=== PATIENT | female | born 1965 ===

== ENCOUNTER 2021-06-11 08:21 | Outpatient (REF) | payer OTHER, SELFPAY ==
--- NOTE | ~2021-06-11 | MM_ITS ---
EXAMINATION: MM SCREENING DIGITAL BREAST TOMOSYNTHESIS, BILATERAL CLINICAL INFORMATION: Screening. Asymptomatic. The lifetime risk of breast cancer based on the Tyrer-Cuzick Model is 14%. COMPARISON: Mammography: 06/19/2016, 04/27/2013, outside mammography 12/20/2010 ([facility], [place]). TECHNIQUE: Digital breast tomosynthesis is performed in both the craniocaudal and mediolateral oblique views along with computer-aided detection (CAD). Synthesized 2D images are generated from the tomosynthesis. FINDINGS: There are scattered areas of fibroglandular density (ACR BI-RADS breast composition Category b). Parenchymal pattern is similar to prior studies. There is no developing density or interval mass or architectural abnormality. No abnormal calcifications. Right breast has stable to decreased nodularity posterior upper outer quadrant. The skin contours are smooth. Axillary nodes are similar to prior studies. Two nodes high right axillary tail are partly within [id number] on outside exam 2010. No significant changes. MM/MM tomosynthesis screening BI IMPRESSION: No significant changes from prior studies. ASSESSMENT: BI-RADS 2: Benign RECOMMENDATION: Routine annual mammography screening. This patient's information was entered into a reminder system with a target due date for their next mammogram.
== END 2021-06-11 08:22 | disposition home or self-care (01) ==
LOC: HO.MAMMO 08:21
PROVIDERS: PCP Nurse Practitioner Family; Visit Provider Nurse Practitioner Family
DX: Z12.31 Encounter for screening mammogram for malignant neoplasm of breast (principal)
CPT/HCPCS: 77063; 77067

== ENCOUNTER 2021-07-08 08:59 | Outpatient (REF) | payer OTHER, SELFPAY ==
[2021-07-08 09:26] LABS: MANUAL DIFF FLAG NO
[2021-07-08 09:41] LABS: Basophils Absolute Auto 0.1 X10*3/uL (0.0-0.2); Basophils Percent Auto 0.8 % (0-2); Eosinophils Absolute Auto 0.3 X10*3/uL (0.0-0.4); Hematocrit 44.3 % (37.0-47.0); Hemoglobin 14.3 g/dl (12.0-16.0); Imm Gran Abs Auto 0.01 X10*3/uL (0.00-0.03); Imm Gran Pct Auto 0.1 % (0.0-0.4); Lymphocytes Absolute Auto 3.5 X10*3/uL (1.2-4.9); Lymphocytes Percent Auto 41.6 % (20-40); Mean Corpuscular HGB Conc 32.3 g/dl (31.0-35.0); Mean Corpuscular Hemoglobin 27.4 pg (27.0-33.0); Mean Corpuscular Volume 84.9 fL (80.0-98.0); Mean Platelet Volume 10.4 fL (9.4-12.3); Monocytes Percent Auto 11.4 % (2-11); Neutrophils Absolute Auto 3.6 x10*3/uL (2.0-8.3); Neutrophils Percent Auto 43.1 % (45-73); Platelet Count 382 X10*3/uL (160-400); Red Blood Count 5.22 X10*6/uL (4.20-5.50); Red Cell Distribution Width 14.4 % (11.0-16.0); White Blood Count 8.4 X10*3/uL (4.8-10.8)
[2021-07-08 10:14] LABS: Alanine Aminotransferase 25 U/L (0-31); Alkaline Phosphatase 84 U/L (39-117); Anion Gap 11 (12-20); Aspartate Amino Transferase 21 U/L (5-31); Bilirubin Total < 0.2 mg/dL (0.0-1.0); Blood Urea Nitrogen 9 mg/dL (9-16); Calcium 9.5 mg/dL (8.4-10.2); Carbon Dioxide 25 mmol/L (22-29); Chloride 111 mmol/L (96-108); Cholesterol 200 mg/dL; Estimated Glomerular Filt Rate > 60; Glucose Fasting 100 mg/dL (60-99); HDL Cholesterol 36 mg/dL; LDL Cholesterol Calculated 133 mg/dl; Potassium 4.8 mmol/L (3.3-5.1); Sodium 142 mmol/L (135-145); Total Protein 7.1 g/dL (6.5-8.0); Triglycerides 158 mg/dL
[2021-07-08 10:32] LABS: Erythrocyte Sedimentation Rate 8 MM/HR (0-20)
[2021-07-08 10:33] LABS: TSH reflex Free T4 4.77 uIU/mL (0.32-4.0)
[2021-07-08 11:05] LABS: Free T4 (Free Thyroxine) 0.63 ng/dL (0.71-1.85)
[2021-07-11 15:16] LABS: Anti Nuclear Antibody Pattern Nuclear, Speckled; Anti Nuclear Antibody Screen POSITIVE (NEGATIVE)
== END 2021-07-08 09:00 | disposition home or self-care (01) ==
LOC: HO.LAB 08:59
PROVIDERS: PCP Nurse Practitioner Family; Visit Provider Nurse Practitioner Family
DX: I10 Essential (primary) hypertension (principal); E03.9 Hypothyroidism, unspecified; E78.00 Pure hypercholesterolemia, unspecified; G43.109 Migraine with aura, not intractable, without status migrainosus; M35.08 Sjogren syndrome with gastrointestinal involvement; M32.9 Systemic lupus erythematosus, unspecified; F41.8 Other specified anxiety disorders
CPT/HCPCS: 36415; 80053; 80061; 82550; 84439; 84443; 85025; 85652; 86038; 86039

== ENCOUNTER → 2021-07-18 09:22 | Outpatient (BNVA) | payer OTHER, SELFPAY | PROVIDERS: PCP Nurse Practitioner Family; Visit Provider Internal Medicine Rheumatology | DX: M32.9 Systemic lupus erythematosus, unspecified (principal); R76.8 Other specified abnormal immunological findings in serum; M79.7 Fibromyalgia; K21.9 Gastro-esophageal reflux disease without esophagitis; M35.09 Sjogren syndrome with other organ involvement; Z79.899 Other long term (current) drug therapy | CPT/HCPCS: 99212 ==

== ENCOUNTER 2021-12-30 09:34 | Outpatient (REF) | payer OTHER, SELFPAY ==
[2021-12-30 10:51] LABS: C Reactive Protein 0.41 mg/dL (< or = 0.50)
[2021-12-30 10:53] LABS: Alanine Aminotransferase 22 U/L (0-31); Albumin Level 3.9 g/dL (3.5-5.0); Alkaline Phosphatase 86 U/L (39-117); Anion Gap 16 (12-20); Aspartate Amino Transferase 17 U/L (5-31); Bilirubin Total 0.2 mg/dL (0.0-1.0); Blood Urea Nitrogen 10 mg/dL (9-16); Carbon Dioxide 21 mmol/L (22-29); Chloride 109 mmol/L (96-108); Cholesterol 177 mg/dL; Estimated Glomerular Filt Rate > 60; Glucose Fasting 113 mg/dL (60-99); HDL Cholesterol 38 mg/dL; LDL Cholesterol Calculated 116 mg/dl; Potassium 4.3 mmol/L (3.3-5.1); Sodium 142 mmol/L (135-145); Triglycerides 119 mg/dL
[2021-12-30 11:15] LABS: Creatinine Urine 327.11 mg/dL; Microalbum/Creatinine Ratio Ur 5.1 ug/mg cr
[2021-12-30 11:17] LABS: TSH reflex Free T4 2.76 uIU/mL (0.32-4.0)
[2022-01-01 16:47] LABS: Complement C3 138 mg/dL (83-193)
[2022-01-01 22:02] LABS: Anti DNA DS Antibody 6 IU/mL; SM/Ribonucleoprotein Ab <1.0 NEG AI (<1.0 NEG); Smith Protein <1.0 NEG AI (<1.0 NEG)
== END 2021-12-30 09:35 | disposition home or self-care (01) ==
LOC: HO.LAB 09:34
PROVIDERS: Nurse Practitioner Family; Absent Provider Internal Medicine Rheumatology; PCP Internal Medicine; Visit Provider Nurse Practitioner Family
DX: E03.9 Hypothyroidism, unspecified (principal); M32.9 Systemic lupus erythematosus, unspecified
CPT/HCPCS: 36415; 80053; 80061; 82043; 84443; 86140; 86160; 86225; 86235

== ENCOUNTER → 2022-01-01 09:26 | Outpatient (BNVA) | payer OTHER, SELFPAY | PROVIDERS: PCP Internal Medicine; Visit Provider Internal Medicine Rheumatology | DX: M32.9 Systemic lupus erythematosus, unspecified (principal); E03.9 Hypothyroidism, unspecified; M35.05 Sjogren syndrome with inflammatory arthritis; M79.7 Fibromyalgia; Z79.899 Other long term (current) drug therapy | CPT/HCPCS: 99212 ==

== ENCOUNTER 2022-02-28 10:45 | Outpatient (REF) | payer OTHER, SELFPAY ==
[2022-02-28 12:22] LABS: Influenza A PCR NEGATIVE (Negative); Influenza B PCR NEGATIVE (Negative); Resp Syncy Virus RNA Qual PCR NEGATIVE (Negative); SARS COV2 PCR INHOUSE POSITIVE (Negative)
== END 2022-02-28 10:46 | disposition home or self-care (01) ==
LOC: HO.LAB 10:45
PROVIDERS: PCP Internal Medicine; Visit Provider Internal Medicine
DX: Z20.822 Contact with and (suspected) exposure to COVID-19 (principal); J98.8 Other specified respiratory disorders
CPT/HCPCS: 0241U

== ENCOUNTER 2022-05-29 06:50 | Outpatient (REF) | payer OTHER, SELFPAY ==
[2022-05-29 06:59] LABS: MANUAL DIFF FLAG NO
[2022-05-29 08:54] LABS: Basophils Percent Auto 0.5 % (0-2); Eosinophils Absolute Auto 0.4 X10*3/uL (0.0-0.4); Eosinophils Percent Auto 4.7 % (0-4); Hematocrit 44.2 % (37.0-47.0); Hemoglobin 14.3 g/dl (12.0-16.0); Imm Gran Abs Auto 0.01 X10*3/uL (0.00-0.03); Imm Gran Pct Auto 0.1 % (0.0-0.4); Lymphocytes Absolute Auto 4.2 X10*3/uL (1.2-4.9); Lymphocytes Percent Auto 56.9 % (20-40); Mean Corpuscular HGB Conc 32.4 g/dl (31.0-35.0); Mean Corpuscular Hemoglobin 27.8 pg (27.0-33.0); Mean Corpuscular Volume 85.8 fL (80.0-98.0); Mean Platelet Volume 10.9 fL (9.4-12.3); Monocytes Absolute Auto 0.9 X10*3/uL (0.1-1.2); Monocytes Percent Auto 12.5 % (2-11); Neutrophils Absolute Auto 1.9 x10*3/uL (2.0-8.3); Neutrophils Percent Auto 25.3 % (45-73); Platelet Count 303 X10*3/uL (160-400); Red Blood Count 5.15 X10*6/uL (4.20-5.50); Red Cell Distribution Width 14.5 % (11.0-16.0); White Blood Count 7.4 X10*3/uL (4.8-10.8)
[2022-05-29 08:54] LABS: Appearance Urine Clear; Color Urine Yellow; Glucose Urine UA Negative (Negative); Leukocyte Esterase Urine Negative (Negative); Nitrite Urine Negative (Negative); PH 5.5 (5.0-9.0); Specific Gravity - Urine 1.025 (1.005-1.025); Urine Blood Negative (Negative); Urine Ketones Negative (Negative); Urine Protein Negative (Neg-Trace)
[2022-05-29 09:39] LABS: Alanine Aminotransferase 27 U/L (0-31); Albumin Level 3.7 g/dL (3.5-5.0); Alkaline Phosphatase 83 U/L (39-117); Anion Gap 12 (12-20); Aspartate Amino Transferase 22 U/L (5-31); Bilirubin Total 0.3 mg/dL (0.0-1.0); Blood Urea Nitrogen 10 mg/dL (9-16); Calcium 8.7 mg/dL (8.4-10.2); Carbon Dioxide 24 mmol/L (22-29); Chloride 111 mmol/L (96-108); Cholesterol 156 mg/dL; Estimated Glomerular Filt Rate > 60; Glucose Fasting 91 mg/dL (60-99); HDL Cholesterol 30 mg/dL; LDL Cholesterol Calculated 98 mg/dl; Potassium 4.1 mmol/L (3.3-5.1); Sodium 143 mmol/L (135-145); Total Protein 6.9 g/dL (6.5-8.0); Triglycerides 142 mg/dL
[2022-05-29 09:43] LABS: Free T4 (Free Thyroxine) 0.92 ng/dL (0.71-1.85); Thyroid Stimulating Hormone 1.08 uIU/mL (0.32-4.0); Vitamin D 25-OH Total 18.4 ng/mL (>30)
== END 2022-05-29 06:51 | disposition home or self-care (01) ==
LOC: HO.LAB 06:50
PROVIDERS: Absent Provider Internal Medicine; PCP Internal Medicine; Visit Provider Internal Medicine Rheumatology
DX: R30.0 Dysuria (principal); E55.9 Vitamin D deficiency, unspecified; E03.9 Hypothyroidism, unspecified; E78.00 Pure hypercholesterolemia, unspecified; I10 Essential (primary) hypertension
CPT/HCPCS: 36415; 80053; 80061; 81003; 82306; 84439; 84443; 85025

== ENCOUNTER → 2022-06-04 08:50 | Outpatient (BNVA) | payer OTHER, SELFPAY | PROVIDERS: PCP Internal Medicine; Visit Provider Internal Medicine Rheumatology | DX: M32.9 Systemic lupus erythematosus, unspecified (principal); M35.05 Sjogren syndrome with inflammatory arthritis; Z79.899 Other long term (current) drug therapy | CPT/HCPCS: 99212 ==

== ENCOUNTER 2022-07-22 08:37 | Outpatient (REF) | payer OTHER, SELFPAY ==
--- NOTE | ~2022-07-22 | MM_ITS ---
EXAMINATION: MM SCREENING DIGITAL BREAST TOMOSYNTHESIS, BILATERAL CLINICAL INFORMATION: Screening. Asymptomatic. The lifetime risk of breast cancer based on the Tyrer-Cuzick Model is 11.6%. COMPARISON: Mammography: 06/11/2021 and studies dating back to 12/20/2010. TECHNIQUE: Digital breast tomosynthesis is performed in both the craniocaudal and mediolateral oblique views along with computer-aided detection (CAD). Synthesized 2D images are generated from the tomosynthesis. FINDINGS: There are scattered areas of fibroglandular density (ACR BI-RADS breast composition Category b). There are no new significant masses, abnormal calcifications, or other abnormalities. Right breast densities in the upper outer aspect are again noted. Intramammary lymph node about the superior aspect of the left breast is seen. MM/MM tomosynthesis screening BI IMPRESSION: No significant changes from prior exam. ASSESSMENT: BI-RADS 2: Benign. RECOMMENDATION: Routine annual mammography screening. This patient's information was entered into a reminder system with a target due date for their next mammogram.
== END 2022-07-22 08:38 | disposition home or self-care (01) ==
LOC: HO.MAMMO 08:37
PROVIDERS: PCP Internal Medicine; Visit Provider Internal Medicine
DX: Z12.31 Encounter for screening mammogram for malignant neoplasm of breast (principal)
CPT/HCPCS: 77063; 77067

== ENCOUNTER 2022-12-05 08:07 | Outpatient (REF) | payer OTHER, SELFPAY ==
[2022-12-05 08:42] LABS: MANUAL DIFF FLAG NO
[2022-12-05 09:39] LABS: Basophils Absolute Auto 0.1 X10*3/uL (0.0-0.2); Basophils Percent Auto 0.9 % (0-2); Eosinophils Absolute Auto 0.2 X10*3/uL (0.0-0.4); Eosinophils Percent Auto 2.9 % (0-4); Hematocrit 45.3 % (37.0-47.0); Hemoglobin 14.8 g/dl (12.0-16.0); Imm Gran Abs Auto 0.01 X10*3/uL (0.00-0.03); Imm Gran Pct Auto 0.1 % (0.0-0.4); Lymphocytes Absolute Auto 3.3 X10*3/uL (1.2-4.9); Lymphocytes Percent Auto 42.3 % (20-40); Mean Corpuscular HGB Conc 32.7 g/dl (31.0-35.0); Mean Corpuscular Hemoglobin 27.4 pg (27.0-33.0); Mean Corpuscular Volume 83.7 fL (80.0-98.0); Mean Platelet Volume 11.2 fL (9.4-12.3); Monocytes Absolute Auto 0.8 X10*3/uL (0.1-1.2); Monocytes Percent Auto 10.1 % (2-11); Neutrophils Absolute Auto 3.4 x10*3/uL (2.0-8.3); Neutrophils Percent Auto 43.7 % (45-73); Platelet Count 288 X10*3/uL (160-400); Red Blood Count 5.41 X10*6/uL (4.20-5.50); Red Cell Distribution Width 13.8 % (11.0-16.0); White Blood Count 7.7 X10*3/uL (4.8-10.8)
[2022-12-05 10:23] LABS: Alanine Aminotransferase 22 U/L (0-31); Alkaline Phosphatase 78 U/L (39-117); Anion Gap 11 (12-20); Aspartate Amino Transferase 19 U/L (5-31); Bilirubin Total 0.3 mg/dL (0.0-1.0); Blood Urea Nitrogen 12 mg/dL (9-16); Calcium 9.3 mg/dL (8.4-10.2); Carbon Dioxide 22 mmol/L (22-29); Chloride 110 mmol/L (96-108); Cholesterol 181 mg/dL (<200); Estimated Glomerular Filt Rate > 60; Glucose Fasting 109 mg/dL (60-99); HDL Cholesterol 36 mg/dL (>40); LDL Cholesterol Calculated 119 mg/dL (<100); Potassium 3.8 mmol/L (3.3-5.1); Sodium 139 mmol/L (135-145); Total Protein 7.3 g/dL (6.5-8.0); Triglycerides 130 mg/dL (<150)
[2022-12-05 10:43] LABS: Free T4 (Free Thyroxine) 0.62 ng/dL (0.71-1.85)
== END 2022-12-05 08:08 | disposition home or self-care (01) ==
LOC: HO.LAB 08:07
PROVIDERS: PCP Internal Medicine; Visit Provider Internal Medicine
DX: E03.9 Hypothyroidism, unspecified (principal); E78.00 Pure hypercholesterolemia, unspecified; K21.9 Gastro-esophageal reflux disease without esophagitis; M79.7 Fibromyalgia
CPT/HCPCS: 36415; 80053; 80061; 84439; 84443; 85025

== ENCOUNTER 2022-12-09 09:07 | Outpatient (AMB) | payer OTHER, SELFPAY ==
--- NOTE | 2022-12-09 09:20 | MHC.OFFVIS ---
Intake Vital Signs 12/09/22 09:27 Height 5 ft 4.5 in Weight 219 lb 12.814 oz BMI 37.1 BP 118/72 Blood Pressure Location Lt brachial Position Sitting Pulse 76 Pulse Source Pulse Oximeter Temp 97.2 F Temp Source Skin Pulse Oximetry (%) 97 Oxygen Delivery Method Room Air Intake Visit Reasons: sle/fm Intake Note: Patient here to follow up on SLE and FM. 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 She remains on hydroxychloroquine 200 mg twice a day. In general she still has scattered widespread pains but no signs of inflammation. Most problematic in the last month has been some left lateral hip pain. She does not recall similar episodes. The pains come on almost exclusively when she lies on the hip at night. There is some discomfort when she rises from a chair. There has been no recent accompanying back pain or radiation of this hip pain anteriorly or down the leg. We discussed before that she did not have much evidence for active lupus in the past year or 2. She did have some lab work done but not all it was completed. [facility] Medical History Vitamin D deficiency Obesity (BMI 30-39.9) Allergic rhinitis GERD (gastroesophageal reflux disease) Acquired hypothyroidism Sjogren syndrome with other organ involvement Long-term use of high-risk medication Positive JESUS (antinuclear antibody) Surgical History History of breast biopsy History of partial hysterectomy Family History Mother Cervical cancer HTN (hypertension) Diabetes Social History Housing: Apartment Alcohol intake: never Patient Tobacco Use Status: Never used Tobacco e-Cigarette/Vaping Use: Never Used Second Hand Smoke Exposure: No service: No Current occupational status: unemployed 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 Card Details: Negative chest pain, edema and syncope Resp Details: Negative for SOB, cough and wheezing GI Details: Negative indigestion/heartburn, nausea, abdominal pain, bowel changes, diarrhea, constipation and bloody stool. Skin/Breast Details: She occasionally notes some redness in the face. Negative for itching, rash, hives, Raynaud's symptoms, alopecia, sun sensitivity, and skin cancer Neuro Details: Negative for epilepsy, palsy, stroke, changes in speech, tingling and weakness Psych Details: Negative for anxiety, depression and stress Endo Details: Negative for polyuria and polydypsia Cristóbal/Lymph Details: Negative for excessive bruising or bleeding. Physical Exam Vital Signs: Last Vital Signs Temp 97.2 F 12/09/22 09:27 Pulse 76 12/09/22 09:27 BP 118/72 12/09/22 09:27 Pulse Ox 97 12/09/22 09:27 Oxygen Delivery Method Room Air 12/09/22 09:27 BMI result Body Mass Index 37.1 APPEARANCE: Patient in no acute distress EYES no redness, pupils equal and reactive to light, eyelids normal NOSE/SINUS: Airflow through both nares, no nasal discharge, no bleeding THROAT: Oral mucosa moist, no ulcerations NECK: No thyromegaly or masses, no adenopathy, trachea midline. HEART: Regulrar rhythm, S1-S2 heard, no murmurs, rubs or gallops. LUNG: Clear to percussion and auscultation ABD: Normal bowel sounds, no organomegaly, masses or tenderness. EXTREMITIES: No edema, no calf tenderness, normal peripheral pulses. JOINT EXAM: Cervical Spine:.? Mild pain with the extremes of normal range of motion.? Some cervical muscle and trapezial muscle tenderness. Thoracic Spine:.? No scoliosis.? No tenderness on palpation. Lumbar Spine:.? Alignment normal.? Lumbar pain with flexion at 60 degrees or with hyperextension.? Some paraspinal muscle tenderness. Chest Wall:? No tenderness, swelling, increased warmth or erythema. Hands:.? Normal pain-free range of motion without tenderness, swelling, increased warmth or erythema. Able to make a full fist and has a good customer support coordinator strength. Wrists:.? Slight pain with extremes of normal flexion or extension with some minimal dorsal tenderness but no swelling, increased warmth or erythema. Elbows:. Normal pain-free range of motion with mild tenderness across the forearm muscles and over the lateral epicondyles. Over the joint spaces there is no tenderness, swelling, increased warmth or erythema. Shoulders:?? Full range of motion with mild discomfort at the extremes of motion.? This seems to be mostly felt over the trapezius area.? That area is mildly tender.? There is no adenopathy, weakness, swelling, increased warmth or erythema. Hips:.? Left: There is mild moderate pain with extremes of internal or external rotation. This is felt laterally. No groin pain with motion. Right: Full range of motion without pain. Hip bursa:.? Moderate left and mild right trochanteric tenderness. Knees:.?? Mild pain with extremes of flexion extension with some mild patellofemoral crepitus.? There is mild medial compartment tenderness bilaterally but no effusions, soft tissue swelling, increased warmth or erythema.? Ankles:.? Normal pain-free range of motion without tenderness, swelling, increased warmth or erythema. Feet:.? Normal pain-free range of motion with mild tenderness across the insteps.? However these are not swollen.? The toes show no tenderness, swelling, increased warmth or erythema. Tender points:? Mild tenderness to digital palpation at the occiput, trapezius, second rib, lateral epicondyle, knees, greater trochanter and gluteal area bilaterally. ? 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 This lateral hip pain looks like some trochanteric bursitis. We will do a hip x-ray to rule out other pathology. She might benefit from a corticosteroid injection and/or physical therapy. I will recheck again laboratory markers for information and lupus activity before her next visit in 3 months. At that point we may consider starting to taper her hydroxychloroquine as she has been years without any lupus activity. Orders: Orders Complement C4 Today R76.8 - Other specified abnormal immunological findings in serum Complete Blood Count Auto Diff Today R76.8 - Other specified abnormal immunological findings in serum C Reactive Protein Today R76.8 - Other specified abnormal immunological findings in serum Erythrocyte Sedimentation Rate Today R76.8 - Other specified abnormal immunological findings in serum Protein Creatinine Ratio, Ur Today R76.8 - Other specified abnormal immunological findings in serum Creatinine Today R76.8 - Other specified abnormal immunological findings in serum XR hip LT min 2V Today M25.552 - Pain in left hip Anti DNA DS Antibody Today R76.8 - Other specified abnormal immunological findings in serum Complement C3 Today R76.8 - Other specified abnormal immunological findings in serum Coding Level of Care Code Est Pt Level 3 (19628) Diagnoses Hip pain, left M25.552 Long-term use of high-risk medication Z79.899 Fibromyalgia M79.7 Hypothyroid E03.9 Positive JESUS (antinuclear antibody) R76.8
[2022-12-09 09:27] VITALS: BP 118/72; PULSE 76; TEMP 36.2; O2SAT 97; BMI 37.1
== END 2022-12-09 09:54 | disposition home or self-care (01) ==
PROVIDERS: PCP Internal Medicine; Visit Provider Internal Medicine Rheumatology
DX: M25.552 Pain in left hip (principal); Z79.899 Other long term (current) drug therapy; M79.7 Fibromyalgia; E03.9 Hypothyroidism, unspecified; R76.8 Other specified abnormal immunological findings in serum
CPT/HCPCS: 99213

== ENCOUNTER → 2022-12-09 09:07 | Outpatient (BNVA) | payer OTHER, SELFPAY | PROVIDERS: PCP Internal Medicine; Visit Provider Internal Medicine Rheumatology | DX: M79.7 Fibromyalgia (principal); M25.552 Pain in left hip; E03.9 Hypothyroidism, unspecified; R76.8 Other specified abnormal immunological findings in serum; Z79.899 Other long term (current) drug therapy | CPT/HCPCS: 99212 ==

== ENCOUNTER 2022-12-16 10:46 | Outpatient (AMB) | payer OTHER, SELFPAY ==
--- NOTE | 2022-12-16 11:00 | A.OFFPC_ITS ---
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 Accompanied by: Self / Same As Patient Allergies codeine Allergy (Unknown, Verified 12/16/22 11:39) Swelling, rash Medication List - Last Reconciled 12/16/22 by Yasir Otero MD cetirizine 10 mg PO DAILY cholecalciferol (vitamin D3) 50 mcg PO DAILY 90 days diclofenac sodium 1% (Arthritis Pain (diclofenac)) 2 grams topical QID PRN famotidine 20 mg PO DAILY fluticasone propionate 50 mcg/actuation (Flonase Allergy Relief) 1 spray intranasal DAILY gabapentin one in AM and two at night hydroxychloroquine 400 mg (2 x 200 mg) PO DAILY levothyroxine 75 mcg PO DAILY lifitegrast 5% (Xiidra) 1 drp ophthalmic (eye) Q12H omeprazole 20 mg PO DAILY polyethylene glycol 3350 (Miralax) 17 grams PO DAILY 30 days sumatriptan succinate 50 mg PO .q8 PRN tizanidine 4 mg PO BEDTIME 30 days Tobacco use date assessed: 12/16/22 Dental Screening Dental Screen Date: 12/16/22 Did you have a dental visit in the last 12 months?: Yes Did you have a dental problem in the last 6 months where you did not have access to dental care?: No Was dental information given to patient?: Patient has dentist HPI 4 MONTH F/U HPI Details Patient comes in today for her follow up visit States that she feels okay Admits that she has been out of her thyroid medication for a while but has started back on it recently She denies any headaches or dizziness Denies any chest pains, no SOB No nausea/vomiting, no abdominal pain No change in bowel habits noted Had her follow up labs done a couple of weeks ago - to discuss her results States that she also has a raised skin lesion on her left hand that has been present for over 2 months now and she would like to have evaluated and removed if possible [facility] Medical History Vitamin D deficiency Obesity (BMI 30-39.9) Allergic rhinitis GERD (gastroesophageal reflux disease) Acquired hypothyroidism Sjogren syndrome with other organ involvement Long-term use of high-risk medication Positive JESUS (antinuclear antibody) Surgical History History of breast biopsy History of partial hysterectomy Family History Mother Cervical cancer HTN (hypertension) Diabetes Social History Housing: Apartment Alcohol intake: never Patient Tobacco Use Status: Never used Tobacco e-Cigarette/Vaping Use: Never Used Second Hand Smoke Exposure: No service: No Current occupational status: unemployed 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 1. Little interest or pleasure in doing things: more than half the days 2. Feeling down, depressed, or hopeless: more than half the days 3. Trouble falling or staying asleep, or sleeping too much: more than half the days 4. Feeling tired or having little energy: more than half the days 5. Poor appetite or overeating: more than half the days 6. Feeling bad about yourself - or that you are a failure or have let yourself or your family down: more than half the days 7. Trouble concentrating on things, such as reading the newspaper or watching television: more than half the days 8. Moving or speaking so slowly that other people could have noticed. Or the opposite - being so fidgety or restless that you have been moving around a lot more than usual: not at all 9. Thoughts that you would be better off or of hurting yourself in some way: not at all Total score: 14 Depression Screening Interpretation: Positive Depression Screening Follow-up: Existing condition and Follow-up Visit Requested 35066 - PHQ-9 Billing: Yes Source: Developed by Drs. Hima Ferris, Kaci De La Cruz, Manas Thomas and colleagues, with an educational bridget from [employer]. Thrive Questionnaire Date Thrive assessed: 12/16/22 I am a: Patient What is your living situation today?: I have a steady place to live Within the past 12 months, did the food you bought not last and you didn't have the money to get more?: Never true Within the past 12 months, did you worry whether your food would run out before you got money to buy more?: Never true Do you have trouble paying for medicines?: No Do you have trouble getting transportation to medical appointments?: No Do you have trouble paying your heating and electricity bill?: No Do you have trouble taking care of your child, family member or friend?: No Do you have trouble with day-to-day activities such as bathing, preparing meals, shopping, managing finances, etc.?: No Are you currently unemployed and looking for a job?: No Are you interested in more education?: No Please select the resources that you would like help with: None Currently or been in a relationship where the following occur: no concerns reported AUDIT C Alcohol Use Questionnaire (AUDIT-C) 1. How often do you have a drink containing alcohol?: Never 3. How often do you have six or more drinks on one occasion?: Never Total Score: 0 Score Reviewed/Action Taken: Yes GRAY-7 AMB Questionnaire GRAY-7 Date GRAY - 7 assessed: 12/16/22 Feeling nervous, anxious, or on edge: 2 = More than half the days Not being able to stop or control worryin = More than half the days Worrying too much about different things: 2 = More than half the days Trouble relaxin = More than half the days Being so restless that it is hard to sit still: 0 = Not at all Becoming easily annoyed or irritable: 2 = More than half the days Feeling afraid as if something awful might happen: 0 = Not at all Total GRAY-7 score (0-4 normal; 5-9 mild; 10-14 moderate; 15-21 severe): 10 Source: Developed by Drs. Hima Ferris, Kaci De La Cruz, Manas Thomas and colleagues, with an educational bridget from [employer]. GRAY-7 Assessment Billing GRAY-7 Assessment Tool: GRAY-7 Assessment 85690 Review of Systems Const Denies chills, Denies fatigue, Denies fever(s) and Denies headache(s) ENT Denies dysphagia, Denies dizziness, Denies otalgia, Denies headache(s), Denies neck pain, Denies odynophagia and Denies sore throat Card Denies chest pain, Denies palpitations and Denies dyspnea Resp Denies cough and Denies dyspnea GI Denies abdominal pain, Denies constipation, Denies dysphagia, Denies heartburn, Denies diarrhea, Denies nausea, Denies odynophagia and Denies vomiting Denies difficulty voiding, Denies nocturia and Denies dysuria Musc Denies neck pain Skin/Breast Details: (+) skin lesion on the left hand - has been present for > 2 months Denies rash Neuro Denies dizziness and Denies headache(s) Endo Denies fatigue and Denies palpitations Physical exam (Primary Care) Vital Signs: Last Vital Signs Pulse 65 12/16/22 11:01 BP 126/80 12/16/22 11:01 Pulse Ox 97 12/16/22 11:01 Oxygen Delivery Method Room Air 12/16/22 11:01 BMI result Body Mass Index 37.0 Tobacco/Smoking Status: Tobacco use Status Tobacco use date assessed 12/16/22 12/16/22 11:05 Patient Tobacco Use Status Never used Tobacco 12/16/22 11:05 e-Cigarette/Vaping Use Never Used 12/16/22 11:05 PHQ-9: PHQ-9 Score PHQ-9: Total score 14 12/30/22 03:30 Depression Screening Interpretation: Positive Depression Screening Follow-up: Existing condition and Follow-up Visit Requested Thrive Assessment: Date of Thrive Assessment Date Thrive assessed 12/16/22 12/16/22 11:05 Currently or been in a relationship where the following occur: no concerns reported Const General: no acute distress and alert HENMT Ears: TM's normal bilaterally and EAC's normal Throat: Yes posterior oropharynx normal and Yes tonsils normal (no TP congestion) Neck Neck: Yes no lymphadenopathy and Yes supple Resp Auscultation: clear to auscultation bilaterally, no rales and no wheezes Cardio Rate: regular rate Rhythm: regular rhythm Heart sounds: no murmurs GI Palpation (GI): Soft to palpation, nontender and No hepatosplenomegaly present Skin Other: (+) raised lesion on the left hand at the hypothenar eminence Extrem General: Yes no clubbing, cyanosis or edema Results Reviewed Results Reviewed: Laboratory Tests 12/05/22 08:38 WBC 7.7 Hgb 14.8 Hct 45.3 Plt Count 288 Sodium 139 Potassium 3.8 Creatinine 0.86 Estimated GFR > 60 Fasting Glucose 109 H Calcium 9.3 D AST 19 ALT 22 Triglycerides 130 Cholesterol 181 LDL Cholesterol, Calc 119 H HDL Cholesterol 36 L TSH 11.60 H Free T4 0.62 L Assessment and Plan Assessment & Plan (1) SLE (systemic lupus erythematosus related syndrome): Comment: Onset 2016: Arthritis, facial rash, positive anti DNA; hydroxychloroquine probably started in 2018 Code(s): M32.9 - Systemic lupus erythematosus, unspecified Plan: Continue Hydroxychloroquine 400 mg QD [place] [facility] (2) Sjogren syndrome with inflammatory arthritis: Code(s): M35.05 - Sjogren syndrome with inflammatory arthritis Plan: Continue Gabapentin 300 mg in AM and 600 mg Q HS, Nabumetone 500 mg BID and Diclofenac sodium 1% gel apply 2 gms QID PRN Continue Xiidra 5% apply to eye Q 12 hours Has been advised by rheumatology in the past that she appears to have a mix of SLE and Sjogren's syndrome with arthralgias and fibromyalgia but was seen at [facility] [place] more recently and advised that her symptoms are mostly consistent with fibromyalgia and she currently does not have much in terms of symptoms of any other inflammatory arthritis Follow up with rheumatology as scheduled (3) Fibromyalgia: Code(s): M79.7 - Fibromyalgia Plan: Was advised recently that her symptoms lately are more consistent with fibromyalgia Continue Gabapentin 300 mg Q AM and 600 mg Q HS and Tizanidine 4 mg Q HS PRN (4) Migraine with aura: Comment: in her 30's Code(s): G43.109 - Migraine with aura, not intractable, without status migrainosus Qualifiers: Intractability: not intractable Status migrainosus presence: without status migrainosus Qualified Code(s): G43.109 - Migraine with aura, not intractable, without status migrainosus Plan: Reinforced avoidance of potential migraine triggers Continue Sumatriptan 50 mg PRN Follow up with neurology as scheduled (5) Acquired hypothyroidism: Code(s): E03.9 - Hypothyroidism, unspecified Plan: Results of her labs done a couple of weeks ago reviewed and discussed with patient - she is advised that her TSH level is significantly elevated, and that this is expected since she has been off her thyroid medication for a while Have advised her to continue on her Levothyroxine 75 mcg QD for now Will recheck her TFTs and labs in 4 months for follow up (6) Vitamin D deficiency: Code(s): E55.9 - Vitamin D deficiency, unspecified Plan: Continue Vitamin D3 2000 units QD (7) GERD (gastroesophageal reflux disease): Code(s): K21.9 - Gastro-esophageal reflux disease without esophagitis Qualifiers: Esophagitis presence: without esophagitis Qualified Code(s): K21.9 - Gastro-esophageal reflux disease without esophagitis Plan: Dietary restrictions reinforced Continue Famotidine 20 mg QD and Omeprazole 20 mg QD Advised again that if her symptoms persist despite Tx with Rx, will need to refer her to GI for further evaluation and consideration for EGD (8) Constipation: Code(s): K59.00 - Constipation, unspecified Qualifiers: Constipation type: unspecified constipation type Qualified Code(s): K59.00 - Constipation, unspecified Plan: Encouraged increased oral fluids and dietary fiber Continue Metamucil daily PRN and Miralax powder 17 gm QD - reminded again that she has to take Miralax daily for it to be effective (9) Allergic rhinitis: Code(s): J30.9 - Allergic rhinitis, unspecified Qualifiers: Allergic rhinitis seasonality: seasonal Allergic rhinitis trigger: unspecified Qualified Code(s): J30.2 - Other seasonal allergic rhinitis Plan: Contine Cetirizine 10 mg QD PRN and Fluticasone 50 mcg nasal spray QD PRN (10) Skin lesion of hand: Code(s): L98.9 - Disorder of the skin and subcutaneous tissue, unspecified Plan: Per request, will refer patient to dermatology for further evaluation and management of the lesion on her left hand (11) Obesity (BMI 30-39.9): Code(s): E66.9 - Obesity, unspecified Plan: Reinforced diet/exercise as tolerated/lose weight Plan Follow up in 4 months Orders: Orders Lipid Panel 4 Months E78.00 - Pure hypercholesterolemia, unspecified Thyroid Stimulating Hormone 4 Months E03.9 - Hypothyroidism, unspecified Complete Blood Count Auto Diff 4 Months I10 - Essential (primary) hypertension Vitamin D 25-OH Total 4 Months E55.9 - Vitamin D deficiency, unspecified UA CC w/rflx Micro + Cult 4 Months R30.0 - Dysuria Comprehensive [place]. Panel Fast 4 Months E78.00 - Pure hypercholesterolemia, unspecified Free T4 (Free Thyroxine) 4 Months E03.9 - Hypothyroidism, unspecified Referrals Dermatology Referral L98.9 - Disorder of the skin and subcutaneous tissue, unspecified Coding Level of Care Code Est Pt Level 4 (55956) Diagnoses SLE (systemic lupus erythematosus related syndrome) M32.9 Sjogren syndrome with inflammatory arthritis M35.05 Fibromyalgia M79.7 Migraine with aura and without status migrainosus, not intractable G43.109 Intractability: not intractable Status migrainosus presence: without status migrainosus Acquired hypothyroidism E03.9 Vitamin D deficiency E55.9 Gastroesophageal reflux disease without esophagitis K21.9 Esophagitis presence: without esophagitis Constipation, unspecified constipation type K59.00 Constipation type: unspecified constipation type Seasonal allergic rhinitis, unspecified trigger J30.2 Allergic rhinitis seasonality: seasonal Allergic rhinitis trigger: unspecified Skin lesion of hand L98.9 Obesity (BMI 30-39.9) E66.9 Additional Codes GRAY-7 Assessment Billing - GRAY-7 Assessment Tool: GRAY-7 Assessment 70071 ([id number])
[2022-12-16 11:01] VITALS: BP 126/80; PULSE 65; O2SAT 97; BMI 37.0
== END 2022-12-16 11:46 | disposition home or self-care (01) ==
PROVIDERS: PCP Internal Medicine; Visit Provider Internal Medicine
DX: M32.9 Systemic lupus erythematosus, unspecified (principal); M35.05 Sjogren syndrome with inflammatory arthritis; M79.7 Fibromyalgia; G43.109 Migraine with aura, not intractable, without status migrainosus; E03.9 Hypothyroidism, unspecified; E55.9 Vitamin D deficiency, unspecified; K21.9 Gastro-esophageal reflux disease without esophagitis; K59.00 Constipation, unspecified; J30.2 Other seasonal allergic rhinitis; L98.9 Disorder of the skin and subcutaneous tissue, unspecified; E66.9 Obesity, unspecified
CPT/HCPCS: 99214

== ENCOUNTER 2023-04-07 08:49 | Outpatient (AMB) | payer OTHER, SELFPAY ==
[2023-04-07 08:51] VITALS: BP 124/68; PULSE 72; O2SAT 98; BMI 36.8
--- NOTE | 2023-04-07 08:51 | MHC.OFFVIS ---
Intake Vital Signs 04/07/23 08:51 Height 5 ft 4.5 in Weight 217 lb 13.067 oz BMI 36.8 BP 124/68 Blood Pressure Location Rt brachial Position Sitting Pulse 72 Pulse Source Pulse Oximeter Pulse Oximetry (%) 98 Oxygen Delivery Method Room Air Intake Visit Reasons: SLE/FM Intake Note: Pt last seen 12/09/22 presents today for follow up and test results. She did not do labs or xrays. States she has been very forgetful lately. 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 Accompanied by: Self / Same As Patient Allergies codeine Allergy (Unknown, Verified 04/07/23 08:58) Swelling, rash Medication List - Last Reconciled 04/07/23 by Zoran Vinson MD cetirizine 10 mg PO DAILY cholecalciferol (vitamin D3) 50 mcg PO DAILY 90 days diclofenac sodium 1% (Arthritis Pain (diclofenac)) 2 grams topical QID PRN famotidine 20 mg PO DAILY fluticasone propionate 50 mcg/actuation (Flonase Allergy Relief) 1 spray intranasal DAILY gabapentin 300 mg PO BEDTIME hydroxychloroquine 400 mg PO DAILY levothyroxine 75 mcg PO DAILY lifitegrast 5% (Xiidra) 1 drp ophthalmic (eye) Q12H omeprazole 20 mg PO DAILY polyethylene glycol 3350 (Miralax) 17 grams PO DAILY 30 days sumatriptan succinate 50 mg PO .q8 PRN tizanidine 4 mg PO BEDTIME 30 days HPI HPI Comments History of Present Illness Details 57-year-old female with Sjogren's/UCTD returns for follow-up. This is her 1st visit with me. She used to see Dr. Domínguez. She states that lately she has been having increased pain everywhere., arms, back, legs. She continues to have pain on the outside of her left hip. Worse when getting up after sitting down. She denies any skin rashes. She takes the gabapentin nightly. She feels that the cold weather has made her symptoms worse. Most recent history by Dr. Domínguez 11/2022: The patient returns for evaluation of fibromyalgia and presumed lupus. She remains on hydroxychloroquine 200 mg twice a day. In general she still has scattered widespread pains but no signs of inflammation. Most problematic in the last month has been some left lateral hip pain. She does not recall similar episodes. The pains come on almost exclusively when she lies on the hip at night. There is some discomfort when she rises from a chair. There has been no recent accompanying back pain or radiation of this hip pain anteriorly or down the leg. We discussed before that she did not have much evidence for active lupus in the past year or 2. She did have some lab work done but not all it was completed. [facility] Medical History Vitamin D deficiency Obesity (BMI 30-39.9) Allergic rhinitis GERD (gastroesophageal reflux disease) Acquired hypothyroidism Sjogren syndrome with other organ involvement Long-term use of high-risk medication Positive JESUS (antinuclear antibody) Surgical History History of breast biopsy History of partial hysterectomy Family History Mother Cervical cancer HTN (hypertension) Diabetes Social History Housing: Apartment Alcohol intake: never Patient Tobacco Use Status: Never used Tobacco e-Cigarette/Vaping Use: Never Used Second Hand Smoke Exposure: No service: No Current occupational status: unemployed 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 Cognitive needs: No Hearing needs: No Vision needs: Yes (glasses) Review of Systems Const Reports snoring Resp Reports snoring Musc Reports back pain and Reports arthralgias Skin/Breast Denies rash Psych Reports abnormal sleep pattern Physical Exam Vital Signs: Last Vital Signs Pulse 72 04/07/23 08:51 BP 124/68 04/07/23 08:51 Pulse Ox 98 04/07/23 08:51 Oxygen Delivery Method Room Air 04/07/23 08:51 BMI result Body Mass Index 36.8 Const General: cooperative, healthy appearing and comfortable Nutritional Appearance: obese morbidly obese Orientation/consciousness: patient oriented x3 Limitations: no limitations HEENT Head: Yes normocephalic and Yes atraumatic Resp Effort & Inspection: normal respiratory effort and able to speak in complete sentences Auscultation: clear to auscultation bilaterally Cardio Rate: regular rate Rhythm: regular rhythm Skin General skin exam: no rashes or lesions noted Neuro General: patient oriented x3 Extrem Other: Multiple fibromyalgia tender points No active synovitis Normal nailfold capillaroscopy Office Procedures Joint Injection/Drain Joint Injection/Drain Details: Left trochanteric bursa Prep: site was prepped using sterile technique and ethochloride spray was applied Injected: 40 mg of, Kenalog and other (2 mL of 1% lidocaine) Approach Used: other Procedure: The patient tolerated the procedure well Coding Details: With the patient's consent, the left lateral hip area was prepped with for Chloraprep and alcohol. Under a topical ethyl chloride spray the tender area over the trochanteric region was injected with 40 mg of Kenalog and 2 cc of 1% lidocaine. The patient tolerated the procedure with no adverse effects - Glenohumeral/Tronchanteric Bursa/Intraarticular Procedure code (CPT) selection complete Assessment & Plan Assessment & Plan (1) SLE (systemic lupus erythematosus related syndrome): Comment: Onset 2015: Arthritis, facial rash, +++SSa +++SSb, +DsDNA hydroxychloroquine probably started in 2018 Code(s): M32.9 - Systemic lupus erythematosus, unspecified Plan: 57-year-old female with mild SLE returns for follow-up. Upon evaluation I do not see any signs of active disease. She is doing well on hydroxychloroquine 400 mg daily. The majority of her complaints are likely due to fibromyalgia and degenerative arthritis. 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 Per patient. She was last seen by Ophthalmology 1 year ago. Advised patient to make an appointment with her heavy forger helper and ask them to send me a copy of their report (3) Fibromyalgia: Code(s): M79.7 - Fibromyalgia Plan: Patient is taking gabapentin 300 mg nightly. She mentions snoring at night. Advised patient to discuss with her PCP the possibility of getting a sleep study to rule out obstructive CPAP (4) Trochanteric bursitis, left hip: Code(s): M70.62 - Trochanteric bursitis, left hip Plan: Patient does not interested in home exercises or formal physical therapy referral. With patient's consent, left hip trochanteric bursa was injected with Kenalog in clinic today Orders: Orders Anti DNA DS Antibody 6 Months M32.9 - Systemic lupus erythematosus, unspecified Complement C3 6 Months M32.9 - Systemic lupus erythematosus, unspecified Complement C4 6 Months M32.9 - Systemic lupus erythematosus, unspecified Protein Creatinine Ratio, Ur 6 Months M32.9 - Systemic lupus erythematosus, unspecified Erythrocyte Sedimentation Rate 6 Months M32.9 - Systemic lupus erythematosus, unspecified UA w Microscopic 6 Months M32.9 - Systemic lupus erythematosus, unspecified Complete Blood Count Auto Diff 6 Months M32.9 - Systemic lupus erythematosus, unspecified Comprehensive Met. Panel 6 Months M32.9 - Systemic lupus erythematosus, unspecified AMB Joint Injection/Aspiration Today M70.62 - Trochanteric bursitis, left hip Medications: Changed From hydroxychloroquine 400 mg (2 x 200 mg) PO DAILY 60 tabs 2RF M32.9 - Systemic lupus erythematosus, unspecified To hydroxychloroquine 400 mg PO DAILY M32.9 - Systemic lupus erythematosus, unspecified From gabapentin one in AM and two at night 90 caps 5RF M32.9 - Systemic lupus erythematosus, unspecified To gabapentin 300 mg PO BEDTIME M32.9 - Systemic lupus erythematosus, unspecified Coding Level of Care Code Est Pt Level 4 (59880) Diagnoses SLE (systemic lupus erythematosus related syndrome) M32.9 Long-term use of high-risk medication Z79.899 Fibromyalgia M79.7 Trochanteric bursitis, left hip M70.62 CPT Codes Coding - Joint 7: 54085 - Glenohumeral/Tronchanteric Bursa/Intraarticular ([id number])
== END 2023-04-07 09:23 | disposition home or self-care (01) ==
PROVIDERS: PCP Internal Medicine; Visit Provider Student in an Organized Health Care Education/Training Program
DX: M32.9 Systemic lupus erythematosus, unspecified (principal); M79.7 Fibromyalgia; Z79.899 Other long term (current) drug therapy; M70.62 Trochanteric bursitis, left hip
CPT/HCPCS: 20610; 99214

== ENCOUNTER → 2023-04-07 08:49 | Outpatient (BNVA) | payer OTHER, SELFPAY | PROVIDERS: PCP Internal Medicine; Visit Provider Student in an Organized Health Care Education/Training Program | DX: M32.9 Systemic lupus erythematosus, unspecified (principal); M79.7 Fibromyalgia; M70.62 Trochanteric bursitis, left hip; Z79.899 Other long term (current) drug therapy | CPT/HCPCS: 20610; 99212 ==

== ENCOUNTER 2023-07-03 14:42 | Outpatient (AMB) | payer OTHER, SELFPAY ==
--- NOTE | 2023-07-03 14:54 | MHC.PC.OV ---
Vital Signs 07/03/23 14:55 Height 5 ft 4.5 in Weight 224 lb BMI 37.9 BP 126/80 Blood Pressure Location Lt brachial Position Sitting Pulse 65 Pulse Source Pulse Oximeter Pulse Oximetry (%) 97 Oxygen Delivery Method Room Air Intake Visit Reasons: Annual physical exam Intake Note: Patient is here today for a physical. Photographer'S Assistant Required: No Accompanied by: Self / Same As Patient Allergies codeine Allergy (Unknown, Verified 07/03/23 15:35) Swelling, rash Medication List - Last Reconciled 07/03/23 by Yasir Otero MD cetirizine 10 mg PO DAILY cholecalciferol (vitamin D3) 50 mcg PO DAILY 90 days diclofenac sodium 1% (Arthritis Pain (diclofenac)) 2 grams topical QID PRN famotidine 20 mg PO DAILY fluticasone propionate 50 mcg/actuation (Flonase Allergy Relief) 1 spray intranasal DAILY gabapentin 300 mg PO BEDTIME hydroxychloroquine 400 mg PO DAILY levothyroxine 75 mcg PO DAILY lifitegrast 5% (Xiidra) 1 drp ophthalmic (eye) Q12H omeprazole 20 mg PO DAILY polyethylene glycol 3350 (Miralax) 17 grams PO DAILY 30 days sumatriptan succinate 50 mg PO .q8 PRN tizanidine 4 mg PO BEDTIME 30 days Tobacco use date assessed: 07/03/23 Dental Screening Dental Screen Date: 07/03/23 Did you have a dental visit in the last 12 months?: Yes Did you have a dental problem in the last 6 months where you did not have access to dental care?: No Was dental information given to patient?: Patient has dentist HPI Encounter for annual physical exam HPI Details Patient comes in today for her annual physical examination States that she feels okay She denies any headaches or dizziness Denies any chest pains, no SOB No nausea/vomiting, no abdominal pain No change in bowel habits noted Denies any acute urinary symptoms Needs her Miralax Rx refilled She has not yet gotten her previously ordered labs done recently and is advised to get them done JAVIER She continues to follow up with [facility] Rheumatology for her mixed connective tissue disease, which is reportedly well-controlled on her current Rx of Hydroxychloroquine She has her next annual mammogram scheduled for later this month on 07/24/2023 Relates (+) Hx of hysterectomy years ago and has not had gynecology exam in years Her colonoscopy was last done in 2019 (tubular adenoma) and she is now due for a repeat colonoscopy (5 year recall) [facility] Medical History (Updated 07/05/23 @ 22:33 by Yasir Otero MD) Vitamin D deficiency Obesity (BMI 30-39.9) Allergic rhinitis GERD (gastroesophageal reflux disease) Acquired hypothyroidism Sjogren syndrome with other organ involvement Long-term use of high-risk medication Positive JESUS (antinuclear antibody) Surgical History (Updated 07/05/23 @ 21:55 by Yasir Otero MD) Hx of cholecystectomy Hx of dilation and curettage Hx of tubal ligation History of left oophorectomy Hx of hysterectomy History of breast biopsy Family History Mother Cervical cancer HTN (hypertension) Diabetes Social History Housing: Apartment Alcohol intake: never Patient Tobacco Use Status: Never used Tobacco e-Cigarette/Vaping Use: Never Used Second Hand Smoke Exposure: No service: No Current occupational status: unemployed 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 1. Little interest or pleasure in doing things: not at all 2. Feeling down, depressed, or hopeless: not at all 3. Trouble falling or staying asleep, or sleeping too much: not at all 4. Feeling tired or having little energy: not at all 5. Poor appetite or overeating: not at all 6. Feeling bad about yourself - or that you are a failure or have let yourself or your family down: not at all 7. Trouble concentrating on things, such as reading the newspaper or watching television: not at all 8. Moving or speaking so slowly that other people could have noticed. Or the opposite - being so fidgety or restless that you have been moving around a lot more than usual: not at all 9. Thoughts that you would be better off or of hurting yourself in some way: not at all Total score: 0 Depression Screening Interpretation: Negative Depression Screening Done: Yes 04299 - PHQ-9 Billing: Yes Source: Developed by Drs. Hima Ferris, Kaci De La Cruz, Manas Thomas and colleagues, with an educational bridget from [employer]. Thrive Questionnaire Date Thrive assessed: 07/03/23 I am a: Patient What is your living situation today?: I have a steady place to live Within the past 12 months, did the food you bought not last and you didn't have the money to get more?: Never true Within the past 12 months, did you worry whether your food would run out before you got money to buy more?: Never true Do you have trouble paying for medicines?: No Do you have trouble getting transportation to medical appointments?: No Do you have trouble paying your heating and electricity bill?: No Do you have trouble taking care of your child, family member or friend?: No Do you have trouble with day-to-day activities such as bathing, preparing meals, shopping, managing finances, etc.?: No Are you currently unemployed and looking for a job?: No Are you interested in more education?: No Please select the resources that you would like help with: None Currently or been in a relationship where the following occur: no concerns reported THRIVE Score: 0 AUDIT C Alcohol Use Questionnaire (AUDIT-C) 1. How often do you have a drink containing alcohol?: Never 3. How often do you have six or more drinks on one occasion?: Never Total Score: 0 Score Reviewed/Action Taken: Yes GRAY-7 AMB Questionnaire GRAY-7 Date GRAY - 7 assessed: 07/03/23 Feeling nervous, anxious, or on edge: 2 = More than half the days Not being able to stop or control worryin = Nearly every day Worrying too much about different things: 3 = Nearly every day Trouble relaxin = More than half the days Being so restless that it is hard to sit still: 2 = More than half the days Becoming easily annoyed or irritable: 3 = Nearly every day Feeling afraid as if something awful might happen: 2 = More than half the days Total GRAY-7 score (0-4 normal; 5-9 mild; 10-14 moderate; 15-21 severe): 17 Source: Developed by Drs. Hima Ferris, Manas Garrett and colleagues, with an educational bridget from [employer]. GRAY-7 Assessment Billing GRAY-7 Assessment Tool: GRAY-7 Assessment 84878 Review of Systems Const Denies chills, Denies fatigue, Denies fever(s), Denies headache(s) and Denies malaise Eyes Denies blurry vision, Denies change in vision, Reports dry eyes, Denies irritation and Denies itchy eyes ENT Denies dysphagia, Denies dizziness, Denies otalgia, Denies headache(s), Denies nasal congestion, Denies neck pain, Denies odynophagia, Denies sinus pain and Denies sore throat Card Denies chest pain, Denies rapid heart rate, Denies irregular heart rhythm, Denies palpitations and Denies dyspnea Resp Denies chest congestion, Denies cough, Denies dyspnea and Denies wheezing GI Denies abdominal pain, Denies bloating, Denies constipation, Denies dysphagia, Denies heartburn, Denies diarrhea, Denies nausea, Denies odynophagia and Denies vomiting Denies hematuria, Denies urinary frequency, Denies dysuria, Denies urinary incontinence and Denies urinary urgency Musc Denies back pain, Reports arthralgias (on and off, involving multiple joints), Denies joint swelling, Denies muscle weakness and Denies neck pain Skin/Breast Denies breast pain, Denies breast mass, Denies change in pigmentation, Denies lesions, Denies rash and Denies unusual bruising Neuro Denies dizziness, Denies headache(s) and Denies paresthesias Psych Denies anxiety and Denies depression Endo Denies fatigue and Denies palpitations Cristóbal/Lymph Denies easy bruising Aller/Immun Denies itchy eyes and Denies wheezing Physical exam (Primary Care) Vital Signs: Last Vital Signs Pulse 65 07/03/23 14:55 BP 126/80 07/03/23 14:55 Pulse Ox 97 07/03/23 14:55 Oxygen Delivery Method Room Air 07/03/23 14:55 BMI result Body Mass Index 375.8 Tobacco/Smoking Status: Tobacco use Status Tobacco use date assessed 07/03/23 07/03/23 15:08 Patient Tobacco Use Status Never used Tobacco 07/03/23 14:55 e-Cigarette/Vaping Use Never Used 07/03/23 14:55 PHQ-9: PHQ-9 Score PHQ-9: Total score 0 07/03/23 15:49 Depression Screening Interpretation: Negative Thrive Assessment: Date of Thrive Assessment Date Thrive assessed 07/03/23 07/03/23 15:08 Currently or been in a relationship where the following occur: no concerns reported Const General: no acute distress, alert and awake Orientation/consciousness: patient oriented x3 HENMT Head: Yes normocephalic and Yes atraumatic Ears: external ears normal, TM's normal bilaterally and EAC's normal General nose exam: No nasal discharge present Face and sinus: Yes normal facial exam and Yes sinuses nontender Teeth and gingiva: dentition normal Throat: Yes posterior oropharynx normal and Yes tonsils normal (no TP congestion) Eyes Eyelids: Yes eyelids normal Conjunctivae: conjunctivae normal Pupils: Equal, round and reactive pupils present EOM: EOMs intact bilaterally Neck Neck: Yes no lymphadenopathy and Yes supple Thyroid: Thyroid normal Resp Auscultation: clear to auscultation bilaterally, no rales and no wheezes Cardio Rate: regular rate Rhythm: regular rhythm Heart sounds: no murmurs GI Palpation (GI): Soft to palpation, nontender and No hepatosplenomegaly present Auscultation: normal bowel sounds General: Yes no CVA tenderness Back/Spine/Pelvis Back: no CVA tenderness Thoracic/Lumbar Spine: thoracic and lumbar spine normal to inspection Skin Lesions: no lesions Rashes: no rashes Neuro General: patient oriented x3, moves all extremities, no focal motor deficits and CN's II-XI intact bilaterally Cranial nerves: Yes Equal, round and reactive pupils present Cognition (Neuro): normal cognition Gait exam (Neuro): Normal gait present Extrem General: Yes no clubbing, cyanosis or edema Assessment and Plan Assessment & Plan (1) Annual physical exam: Code(s): Z00.00 - Encounter for general adult medical examination without abnormal findings Plan: Patient has been advised to get her previously ordered labs done JAVIER She is due for her repeat colonoscopy - will refer back to GI She should also get back to updating her annual gynecology exam as she has not had one done in years (she is S/P hysterectomy) (2) SLE (systemic lupus erythematosus related syndrome): Comment: Onset 2015: Arthritis, facial rash, +++SSa +++SSb, +DsDNA hydroxychloroquine probably started in 2019 Code(s): M32.9 - Systemic lupus erythematosus, unspecified Plan: Continue Hydroxychloroquine 400 mg QD Follow up with [facility] Rheumatology as scheduled Will refer her to ophthalmology for routine eye exam as she is on maintenance Tx with Hydroxychloroquine and an annual eye exam is recommended for patients on the Rx due to its potential ophthalmic toxicity/side effects (3) Sjogren syndrome with inflammatory arthritis: Code(s): M35.05 - Sjogren syndrome with inflammatory arthritis Plan: Continue Gabapentin 300 mg in AM and 600 mg Q HS, Nabumetone 500 mg BID and Diclofenac sodium 1% gel apply 2 gms QID PRN Continue Xiidra 5% apply to eye Q 12 hours Has been advised by rheumatology in the past that she appears to have a mix of SLE and Sjogren's syndrome with arthralgias and fibromyalgia but was seen at [facility] Rheumatology more recently and advised that her symptoms are mostly consistent with fibromyalgia/UCTD and she does not have much in terms of symptoms of any other inflammatory arthritis Follow up with rheumatology as scheduled (4) Fibromyalgia: Code(s): M79.7 - Fibromyalgia Plan: She has been advised that her symptoms are more consistent with fibromyalgia Continue Gabapentin 300 mg Q AM and 600 mg Q HS and Tizanidine 4 mg Q HS PRN (5) Migraine with aura: Comment: in her 30's Code(s): G43.109 - Migraine with aura, not intractable, without status migrainosus Qualifiers: Status migrainosus presence: without status migrainosus Intractability: not intractable Qualified Code(s): G43.109 - Migraine with aura, not intractable, without status migrainosus Plan: Reinforced avoidance of potential migraine triggers Continue Sumatriptan 50 mg PRN Follow up with neurology as scheduled (6) Acquired hypothyroidism: Code(s): E03.9 - Hypothyroidism, unspecified Plan: She has been advised to get her previously ordered labs (which include her TFTs) done JAVIER for follow up Continue Levothyroxine 75 mcg QD for now Will recheck her TFTs again in 6 months for follow up (7) Vitamin D deficiency: Code(s): E55.9 - Vitamin D deficiency, unspecified Plan: Continue Vitamin D3 2000 units QD (8) GERD (gastroesophageal reflux disease): Code(s): K21.9 - Gastro-esophageal reflux disease without esophagitis Qualifiers: Esophagitis presence: without esophagitis Qualified Code(s): K21.9 - Gastro-esophageal reflux disease without esophagitis Plan: Dietary restrictions reinforced Continue Famotidine 20 mg QD and Omeprazole 20 mg QD Advised again that if her symptoms persist despite her Rx, will need to refer her to GI for further evaluation and consideration for EGD (9) Constipation: Code(s): K59.00 - Constipation, unspecified Qualifiers: Constipation type: unspecified constipation type Qualified Code(s): K59.00 - Constipation, unspecified Plan: Encouraged increased oral fluids and dietary fiber Continue Metamucil daily PRN and Miralax powder 17 gm QD (Rx refilled) (10) Allergic rhinitis: Code(s): J30.9 - Allergic rhinitis, unspecified Qualifiers: Allergic rhinitis trigger: unspecified Allergic rhinitis seasonality: seasonal Qualified Code(s): J30.2 - Other seasonal allergic rhinitis Plan: Contine Cetirizine 10 mg QD PRN and Fluticasone 50 mcg nasal spray QD PRN (11) Obesity (BMI 30-39.9): Code(s): E66.9 - Obesity, unspecified Plan: Reinforced diet/exercise as tolerated/lose weight (12) Colon cancer screening: Code(s): Z12.11 - Encounter for screening for malignant neoplasm of colon Plan: She last had her colonoscopy done in 2019 (tubular adenoma) and she is now due for her repeat 5 year colonoscopy - will refer her back to GI (13) Cervical cancer screening: Code(s): Z12.4 - Encounter for screening for malignant neoplasm of cervix Plan: S/P hysterectomy (due to large fibroids and heavy menstrual bleeding) and left oophorectomy Will refer her to OB-Physics Teacher for her annual gynecology exam - she has not seen gynecology in a few years (14) Osteoporosis screening: Code(s): Z13.820 - Encounter for screening for osteoporosis Plan: Will refer her for BMD for osteoporosis screening - this will be her index screen Plan Follow up in 6 months Orders: Orders XR DEXA axial skeleton 07/03/23 Z78.0 - Asymptomatic menopausal state Free T4 (Free Thyroxine) 6 Months E03.9 - Hypothyroidism, unspecified Thyroid Stimulating Hormone 6 Months E03.9 - Hypothyroidism, unspecified Referrals Gastroenterology Referral Z12.11 - Encounter for screening for malignant neoplasm of colon Ophthalmology Referral Z79.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 MULE SPINNER Referral Z01.419 - Encounter for gynecological examination (general) (routine) without abnormal findings Medications: Refilled polyethylene glycol 3350 (Miralax) 17 grams PO DAILY 30 days 510 grams 12RF Coding Level of Care Code Est Pt Prev Care 40-64y(64202) Diagnoses Annual physical exam Z00.00 SLE (systemic lupus erythematosus related syndrome) M32.9 Sjogren syndrome with inflammatory arthritis M35.05 Fibromyalgia M79.7 Migraine with aura and without status migrainosus, not intractable G43.109 Status migrainosus presence: without status migrainosus Intractability: not intractable Acquired hypothyroidism E03.9 Vitamin D deficiency E55.9 Gastroesophageal reflux disease without esophagitis K21.9 Esophagitis presence: without esophagitis Constipation, unspecified constipation type K59.00 Constipation type: unspecified constipation type Seasonal allergic rhinitis, unspecified trigger J30.2 Allergic rhinitis trigger: unspecified Allergic rhinitis seasonality: seasonal Obesity (BMI 30-39.9) E66.9 Colon cancer screening Z12.11 Cervical cancer screening Z12.4 Osteoporosis screening Z13.820 Additional Codes GRAY-7 Assessment Billing - GRAY-7 Assessment Tool: GRAY-7 Assessment 52655 ([id number])
[2023-07-03 14:55] VITALS: BP 126/80; PULSE 65; O2SAT 97; BMI 37.9
== END 2023-07-03 15:52 | disposition home or self-care (01) ==
PROVIDERS: PCP Internal Medicine; Visit Provider Internal Medicine
DX: Z00.00 Encounter for general adult medical examination without abnormal findings (principal); M32.9 Systemic lupus erythematosus, unspecified; M35.05 Sjogren syndrome with inflammatory arthritis; M79.7 Fibromyalgia; G43.109 Migraine with aura, not intractable, without status migrainosus; E03.9 Hypothyroidism, unspecified; E66.9 Obesity, unspecified; E55.9 Vitamin D deficiency, unspecified; K21.9 Gastro-esophageal reflux disease without esophagitis; K59.00 Constipation, unspecified; J30.2 Other seasonal allergic rhinitis
CPT/HCPCS: 99396

== ENCOUNTER 2023-07-24 09:39 | Outpatient (REF) | payer OTHER, SELFPAY ==
--- NOTE | ~2023-07-24 | MM_ITS ---
EXAMINATION: BONE DENSITOMETRY CLINICAL INDICATION: Menopause. COMPARISON: This is the patient's baseline examination. TECHNIQUE: Using a [employer] DXA System (software version: 13.1) manufactured by [employer] dual-energy x-ray absorptiometry was performed of the lumbar spine and left hip. The images are of good technical quality. Summary results are attached. FINDINGS: LEFT FEMUR, NECK: BMD 1.035 g/cm2, Z-score 0.4, T-score 0.0, normal. LEFT FEMUR, TOTAL: BMD 1.071 g/cm2, Z-score 0.5, T-score 0.5, normal. AP SPINE L1-L2 (excluding L3 and L4): The data of L1-L4 has been changed to exclude the L3 and L4 vertebral bodies, because degenerative sclerosis at these levels may cause overestimation of lumbar spine density. BMD 1.069 g/cm2, Z-score -1.0, T-score -0.8, normal. IDENTIFIED RISK FACTORS: Menopause, left oophorectomy, hysterectomy, secondary osteoporosis (hyperthyroidism, intestinal or bowel disease). HISTORY OF FRACTURE: None listed. MEDICATIONS: Vitamin D. MM/XR DEXA axial skeleton IMPRESSION: 1. DIAGNOSIS: Normal bone density based on the lowest T-score value of -0.8 in the lumbar spine applying World Health Organization criteria. 2. 10-YEAR FRACTURE RISK PREDICTION, FRAX: According to the guidelines, FRAX calculation should only be performed on patients in the osteopenia bone density category. Therefore, FRAX was not performed on this patient. 3. Treatment Recommendations: NOF guidelines recommend consideration for treatment in postmenopausal women and men age 50 and older presenting with the following: -A hip or vertebral (clinical or morphometric) fracture. -T-score less than or equal to -2.5 at the femoral neck or spine after appropriate evaluation to exclude secondary causes. -Low bone mass at the hip or spine and a 10-year fracture probability by FRAX of greater than or equal to 3% for hip fracture or greater than or equal to 20% for major osteoporotic fracture based on the [place] adapted WHO algorithm. 4. Other Recommendations: All treatment decisions require clinical judgment and consideration of individual patient factors, including patient preferences, comorbidities, previous drug use, risk factors not captured in the FRAX model (e.g. frailty, falls, vitamin D deficiency, increased bone turnover, interval significant decline in bone density) and possible under or overestimation of fracture risk by FRAX. FUTURE SCAN RECOMMENDATION: People with diagnosed cases of osteoporosis or at high risk for fracture should have regular bone mineral density tests. For patients eligible for Medicare, routine testing is allowed once every 2 years. The testing frequency can be increased to one year for patients who have rapidly progressing disease, those who are receiving or discontinuing medical therapy to restore bone mass, or have additional risk factors.
== END 2023-07-24 09:40 | disposition home or self-care (01) ==
LOC: HO.MAMMO 09:39
PROVIDERS: PCP Internal Medicine; Visit Provider Internal Medicine
DX: Z12.31 Encounter for screening mammogram for malignant neoplasm of breast (principal); Z13.820 Encounter for screening for osteoporosis; Z78.0 Asymptomatic menopausal state
CPT/HCPCS: 77063; 77067; 77080

== ENCOUNTER → 2023-07-24 10:00 | Outpatient (BNV) | payer OTHER, SELFPAY | PROVIDERS: PCP Internal Medicine; Visit Provider Radiology Diagnostic Radiology | DX: Z12.31 Encounter for screening mammogram for malignant neoplasm of breast (principal) | CPT/HCPCS: 77063; 77067 ==

== ENCOUNTER 2023-09-30 07:30 | Outpatient (REF) | payer OTHER, SELFPAY ==
[2023-09-30 07:54] LABS: MANUAL DIFF FLAG NO
[2023-09-30 08:31] LABS: Basophils Percent Auto 0.6 % (0-2); Eosinophils Absolute Auto 0.2 X10*3/uL (0.0-0.4); Eosinophils Percent Auto 3.3 % (0-4); Hematocrit 43.8 % (37.0-47.0); Hemoglobin 14.5 g/dl (12.0-16.0); Imm Gran Abs Auto 0.01 X10*3/uL (0.00-0.03); Imm Gran Pct Auto 0.2 % (0.0-0.4); Lymphocytes Percent Auto 46.5 % (20-40); Mean Corpuscular HGB Conc 33.1 g/dl (31.0-35.0); Mean Corpuscular Hemoglobin 27.9 pg (27.0-33.0); Mean Corpuscular Volume 84.2 fL (80.0-98.0); Mean Platelet Volume 10.6 fL (9.4-12.3); Monocytes Absolute Auto 0.8 X10*3/uL (0.1-1.2); Monocytes Percent Auto 12.1 % (2-11); Neutrophils Absolute Auto 2.4 x10*3/uL (2.0-8.3); Neutrophils Percent Auto 37.3 % (45-73); Platelet Count 352 X10*3/uL (160-400); Red Cell Distribution Width 14.4 % (11.0-16.0); White Blood Count 6.4 X10*3/uL (4.8-10.8)
[2023-09-30 09:09] LABS: Erythrocyte Sedimentation Rate 10 MM/HR (0-20)
[2023-09-30 09:16] LABS: Creatinine Urine 258.05 mg/dL; Protein/Creatinine Ratio, Ur 0.05 (<0.2); Total Protein Urine Random 13 mg/dL (<12)
[2023-09-30 09:18] LABS: Alanine Aminotransferase 36 U/L (0-31); Albumin Level 4.1 g/dL (3.5-5.0); Alkaline Phosphatase 77 U/L (39-117); Anion Gap 11 (12-20); Aspartate Amino Transferase 26 U/L (5-31); Bilirubin Total 0.2 mg/dL (0.0-1.0); Blood Urea Nitrogen 12 mg/dL (9-16); Calcium 9.5 mg/dL (8.4-10.2); Carbon Dioxide 24 mmol/L (22-29); Chloride 112 mmol/L (96-108); Cholesterol 178 mg/dL (<200); Estimated Glomerular Filt Rate > 60; Glucose Fasting 105 mg/dL (60-99); HDL Cholesterol 33 mg/dL (>40); LDL Cholesterol Calculated 116 mg/dL (<100); Potassium 3.8 mmol/L (3.3-5.1); Sodium 143 mmol/L (135-145); Total Protein 7.6 g/dL (6.5-8.0); Triglycerides 147 mg/dL (<150)
[2023-09-30 09:23] LABS: Free T4 (Free Thyroxine) 0.65 ng/dL (0.71-1.85); Vitamin D 25-OH Total 19.2 ng/mL (>30)
[2023-09-30 10:02] LABS: Appearance Urine Hazy; Color Urine Yellow; Glucose Urine UA Negative (Negative); Leukocyte Esterase Urine Negative (Negative); Nitrite Urine Negative (Negative); PH 5.5 (5.0-9.0); Specific Gravity - Urine >= 1.030 (1.005-1.025); Urine Blood Negative (Negative); Urine Ketones Negative (Negative); Urine Protein Negative (Neg-Trace)
[2023-09-30 10:25] LABS: Bacteria Urine 2+ (None Seen); Hyaline Casts Urine 0-2 /LPF (0-2); RBC Urine 0-2 /HPF (0-2); Squamous Epithelial Cell Urine >20 /HPF (0-2); WBC Urine 0-5 /HPF (0-5)
[2023-10-02 20:44] LABS: Anti DNA DS Antibody 7 IU/mL
[2023-10-03 00:54] LABS: Complement C3 170 mg/dL (83-193)
== END 2023-09-30 07:31 | disposition home or self-care (01) ==
LOC: HO.LAB 07:30
PROVIDERS: Absent Provider Student in an Organized Health Care Education/Training Program; PCP Internal Medicine; Referring Provider Internal Medicine Rheumatology; Visit Provider Internal Medicine
DX: M32.9 Systemic lupus erythematosus, unspecified (principal); E78.00 Pure hypercholesterolemia, unspecified; E55.9 Vitamin D deficiency, unspecified; E03.9 Hypothyroidism, unspecified; R30.0 Dysuria; I10 Essential (primary) hypertension
CPT/HCPCS: 36415; 80053; 80061; 81001; 81003; 82306; 82570; 84156; 84439; 84443; 85025; 85652; 86160; 86225

== ENCOUNTER 2023-10-07 08:15 | Outpatient (AMB) | payer OTHER, SELFPAY ==
--- NOTE | 2023-10-07 08:18 | MHC.OFFVIS ---
Vital Signs 10/07/23 08:26 Height 5 ft 4.5 in Weight 225 lb 12.054 oz BMI 38.1 BP 115/80 Blood Pressure Location Rt brachial Position Sitting Pulse 80 Pulse Source Pulse Oximeter Pulse Oximetry (%) 97 Oxygen Delivery Method Room Air Intake Visit Reasons: SLE/FM/CM Intake Note: Patient presents for SLE/FM/CM. Having swollen legs and in lots of pain. Allergies codeine Allergy (Unknown, Verified 10/07/23 08:25) Swelling, rash Medication List - Last Reconciled 10/07/23 by Zoran Vinson MD cetirizine 10 mg PO DAILY cholecalciferol (vitamin D3) 50 mcg PO DAILY 90 days diclofenac sodium 1% (Arthritis Pain (diclofenac)) 2 grams topical QID PRN famotidine 20 mg PO DAILY fluticasone propionate 50 mcg/actuation (Flonase Allergy Relief) 1 spray intranasal DAILY gabapentin 300 mg PO BEDTIME hydroxychloroquine 400 mg PO DAILY levothyroxine 75 mcg PO DAILY lifitegrast 5% (Xiidra) 1 drp ophthalmic (eye) Q12H omeprazole 20 mg PO DAILY polyethylene glycol 3350 (Miralax) 17 grams PO DAILY 30 days sumatriptan succinate 50 mg PO .q8 PRN tizanidine 4 mg PO BEDTIME 30 days HPI Comments Details: 57-year-old female with Sjogren's/UCTD returns for follow-up. States that she feels generalized body aches and fatigue. She thinks it has related to the hot weather and having to go up and down the stairs at work. She noticed mild bluish discoloration on the medial aspect of her left leg. States it is painful. Remains on hydroxychloroquine 400 mg daily Most recent history by Dr. Domínguez 11/2022: The patient returns for evaluation of fibromyalgia and presumed lupus. She remains on hydroxychloroquine 200 mg twice a day. In general she still has scattered widespread pains but no signs of inflammation. Most problematic in the last month has been some left lateral hip pain. She does not recall similar episodes. The pains come on almost exclusively when she lies on the hip at night. There is some discomfort when she rises from a chair. There has been no recent accompanying back pain or radiation of this hip pain anteriorly or down the leg. We discussed before that she did not have much evidence for active lupus in the past year or 2. She did have some lab work done but not all it was completed. [facility] Medical History Vitamin D deficiency Obesity (BMI 30-39.9) Allergic rhinitis GERD (gastroesophageal reflux disease) Acquired hypothyroidism Sjogren syndrome with other organ involvement Long-term use of high-risk medication Positive JESUS (antinuclear antibody) Surgical History Hx of cholecystectomy Hx of dilation and curettage Hx of tubal ligation History of left oophorectomy Hx of hysterectomy History of breast biopsy Family History Mother Cervical cancer HTN (hypertension) Diabetes Social History Housing: Apartment Alcohol intake: never Patient Tobacco Use Status: Never used Tobacco e-Cigarette/Vaping Use: Never Used Second Hand Smoke Exposure: No service: No Current occupational status: unemployed 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 Cognitive needs: No Hearing needs: No Vision needs: Yes (glasses) Review of Systems Const Reports body aches and Reports snoring Resp Reports snoring Musc Reports back pain and Reports arthralgias Skin/Breast Reports new lesions and Denies rash Psych Reports abnormal sleep pattern and Reports anxiety Physical Exam Vital Signs: Last Vital Signs Pulse 80 10/07/23 08:26 BP 115/80 10/07/23 08:26 Pulse Ox 97 10/07/23 08:26 Oxygen Delivery Method Room Air 10/07/23 08:26 BMI result Body Mass Index 38.1 Const General: cooperative, healthy appearing and comfortable Nutritional Appearance: obese morbidly obese Orientation/consciousness: patient oriented x3 Limitations: no limitations HEENT Head: Yes normocephalic and Yes atraumatic Resp Effort & Inspection: normal respiratory effort and able to speak in complete sentences Auscultation: clear to auscultation bilaterally Cardio Rate: regular rate Rhythm: regular rhythm Skin Other: Dilated vein on the medial aspect of left leg, likely varicose vein Neuro General: patient oriented x3 Extrem Other: Multiple fibromyalgia tender points No active synovitis Normal nailfold capillaroscopy Assessment & Plan Assessment & Plan (1) SLE (systemic lupus erythematosus related syndrome): Comment: Onset 2016: Arthritis, facial rash, +++SSa +++SSb, +DsDNA hydroxychloroquine probably started in 2019 Code(s): M32.9 - Systemic lupus erythematosus, unspecified Category: Medical Plan: 57-year-old female with mild SLE returns for follow-up. Doing very well on hydroxychloroquine 400 mg daily. I do not see any signs suggestive of active SLE. Labs are unremarkable. Reduce hydroxychloroquine to 300 mg daily. Patient will alternate 400 mg daily with 200 mg daily Labs before next visit in 4 months (2) Long-term use of high-risk medication: Comment: Hydroxychloroquine since [address] 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 Follow-up regularly with veneer splicer (3) Fibromyalgia: Code(s): M79.7 - Fibromyalgia Category: Medical Plan: Patient is taking gabapentin 300 mg nightly. Sometimes takes 600 at night She mentions snoring at night. Advised patient to discuss with her PCP the possibility of getting a sleep study to rule out obstructive CPAP. Consider a therapist for evaluation of underlying anxiety/depression (4) Trochanteric bursitis, left hip: Code(s): M70.62 - Trochanteric bursitis, left hip Category: Medical Plan: Injected in clinic last visit with [place] with improvement (5) Vitamin D deficiency: Code(s): E55.9 - Vitamin D deficiency, unspecified Category: Medical Plan: Low vitamin D levels, prescribed vitamin-D supplementation by her PCP. Plan I spent 35 minutes reviewing patient's chart, evaluating patient, ordering diagnostic workup, counseling patient and documenting in the chart Orders: Orders Anti DNA DS Antibody 4 Months M32.9 - Systemic lupus erythematosus, unspecified Complement C4 4 Months M32.9 - Systemic lupus erythematosus, unspecified Erythrocyte Sedimentation Rate 4 Months M32.9 - Systemic lupus erythematosus, unspecified Complement C3 4 Months M32.9 - Systemic lupus erythematosus, unspecified DNA Double Stranded-Crithidia 4 Months M32.9 - Systemic lupus erythematosus, unspecified C Reactive Protein 4 Months M32.9 - Systemic lupus erythematosus, unspecified Protein Creatinine Ratio, Ur 4 Months M32.9 - Systemic lupus erythematosus, unspecified UA w Microscopic 4 Months M32.9 - Systemic lupus erythematosus, unspecified Complete Blood Count Auto Diff 4 Months M32.9 - Systemic lupus erythematosus, unspecified Comprehensive Met. Panel 4 Months M32.9 - Systemic lupus erythematosus, unspecified Medications: Changed From hydroxychloroquine 400 mg PO DAILY M32.9 - Systemic lupus erythematosus, unspecified To hydroxychloroquine 300 mg (1.5 x 200 mg) PO DAILY 135 tabs 1RF M32.9 - Systemic lupus erythematosus, unspecified Coding Level of Care Code Est Pt Level 5 (86150) Complex EM visit Add On G2211 Diagnoses SLE (systemic lupus erythematosus related syndrome) M32.9 Long-term use of high-risk medication Z79.899 Fibromyalgia M79.7 Trochanteric bursitis, left hip M70.62 Vitamin D deficiency E55.9
[2023-10-07 08:26] VITALS: BP 115/80; PULSE 80; O2SAT 97; BMI 38.1
== END 2023-10-07 08:53 | disposition home or self-care (01) ==
PROVIDERS: PCP Internal Medicine; Visit Provider Student in an Organized Health Care Education/Training Program
DX: M32.9 Systemic lupus erythematosus, unspecified (principal); Z79.899 Other long term (current) drug therapy; M79.7 Fibromyalgia; M70.62 Trochanteric bursitis, left hip; E55.9 Vitamin D deficiency, unspecified
CPT/HCPCS: 99214; G2211

== ENCOUNTER → 2023-10-07 08:15 | Outpatient (BNVA) | payer OTHER, SELFPAY | PROVIDERS: PCP Internal Medicine; Visit Provider Student in an Organized Health Care Education/Training Program | DX: M32.9 Systemic lupus erythematosus, unspecified (principal); M79.7 Fibromyalgia; M70.62 Trochanteric bursitis, left hip; E55.9 Vitamin D deficiency, unspecified; Z79.899 Other long term (current) drug therapy | CPT/HCPCS: 99212 ==

== ENCOUNTER 2023-10-13 11:02 | Outpatient (AMB) | payer OTHER, SELFPAY ==
--- NOTE | 2023-10-13 11:21 | MHC.OFFVIS ---
Vital Signs 10/13/23 11:28 Height 5 ft 4.5 in Weight 225 lb 4.999 oz BMI 38.1 BP 122/60 Blood Pressure Location Rt brachial Position Sitting Pulse 72 Pulse Source Pulse Oximeter Pulse Oximetry (%) 94 Oxygen Delivery Method Room Air Intake Visit Reasons: 5 yr colonoscopy recall - TA Intake Note: Rula presents in office today for a scheduled recall colo consult CC: Pt reports that their sx have remained mostly stable since their last colo. Pt does report however; that they have a new onset of a more significant pain in their RUQ. Pt states that they feel as if their intestine is blocked up or very bloated at certain points. Pt feels this is the case in relation to their CIC that they are managing as well as their GERD. Pt reports onset was approximately 3 mos ago. 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 female here today for pre colonoscopy screening.? Patient was sent to us by her PCP.? Last colonoscopy in May of 2018, showed tubular adenoma. Patient denies melena, hematochezia, unintentional weight loss or ribbon like stools. Patient reports in the past 3 months she has been having trouble moving her bowels. Sometimes when no bowel movements for few days patient reports right upper quadrant bloating and discomfort. Last colonoscopy patient was found to have moderate diverticulosis throughout the whole colon. Currently patient is using MiraLax, however she states she only uses 3 times a week as it causes her frequent bowel movements were patient stays in the bathroom pretty much the whole day.? Patient denies any gastrointestinal symptoms in the past or at present.? Denies any personal or family history of gastrointestinal disease, colon polyps, or CRC.? Denies history of difficulty with sedation or anesthesia in the past.? Negative for history of sleep apnea.? Denies any history of cardiac, renal, pulmonary, or hepatic disease.?? No history of infectious? diseases like hepatitis A, B, C, HIV or tuberculosis.? Patient is not on any anticoagulation [facility] Medical History Vitamin D deficiency Obesity (BMI 30-39.9) Allergic rhinitis GERD (gastroesophageal reflux disease) Acquired hypothyroidism Sjogren syndrome with other organ involvement Long-term use of high-risk medication Positive JESUS (antinuclear antibody) Surgical History (Updated 10/13/23 @ 11:59 by Nimo Hoyos [facility]) Hx of colonoscopy (~2019) Hx of cholecystectomy Hx of dilation and curettage Hx of tubal ligation History of left oophorectomy Hx of hysterectomy History of breast biopsy Family History Mother Cervical cancer HTN (hypertension) Diabetes Social History Housing: Apartment Alcohol intake: never Patient Tobacco Use Status: Never used Tobacco e-Cigarette/Vaping Use: Never Used Second Hand Smoke Exposure: No service: No Current occupational status: unemployed 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 Cognitive needs: No Hearing needs: No Vision needs: Yes (glasses) Review of Systems Const Denies weight gain and Denies weight loss ENT Reports no additional complaints, Denies dysphagia and Denies odynophagia Card Reports no additional complaints Resp Reports no additional complaints GI Denies abdominal pain, Denies belching, Denies melena, Denies bloating, Reports constipation, Denies dysphagia, Denies excessive flatus, Denies dyspepsia, Reports heartburn, Denies diarrhea, Denies loose stools, Denies nausea, Denies odynophagia and Denies vomiting Reports no additional complaints Musc Reports no additional complaints Neuro Reports no additional complaints Psych Reports no additional complaints Endo Reports no additional complaints Physical Exam Vital Signs: Last Vital Signs Pulse 72 10/13/23 11:28 BP 122/60 10/13/23 11:28 Pulse Ox 94 10/13/23 11:28 Oxygen Delivery Method Room Air 10/13/23 11:28 BMI result Body Mass Index 38.1 Const General: healthy appearing and no acute distress Nutritional Appearance: obese Orientation/consciousness: patient oriented x3 Eyes General: appearance normal, both eyes and all related structures Resp Effort & Inspection: normal respiratory effort, able to speak in complete sentences, no tracheal deviation and symmetric chest movement Auscultation: clear to auscultation bilaterally Cardio Rate: regular rate GI Inspection: Yes normal to inspection, No distended and Yes obesity Palpation (GI): Soft to palpation, not firm, nontender and No hepatosplenomegaly present Auscultation: normal bowel sounds General: Yes no CVA tenderness Back/Spine/Pelvis Back: no CVA tenderness Skin General skin exam: elasticity normal, turgor normal and dry skin Neuro General: patient oriented x3 Psych Appearance: grossly normal Mental Status: mental status grossly normal Assessment & Plan Assessment & Plan (1) Colon cancer screening: Code(s): Z12.11 - Encounter for screening for malignant neoplasm of colon Category: Medical (2) Constipation: Code(s): K59.00 - Constipation, unspecified Category: Medical Qualifiers: Constipation type: unspecified constipation type Qualified Code(s): K59.00 - Constipation, unspecified (3) GERD (gastroesophageal reflux disease): Code(s): K21.9 - Gastro-esophageal reflux disease without esophagitis Category: Medical Qualifiers: Esophagitis presence: without esophagitis Qualified Code(s): K21.9 - Gastro-esophageal reflux disease without esophagitis Plan Patient can continue omeprazole in the morning and famotidine at bedtime. Avoid dietary triggers and late night snacking. Staying upright for minimum 3 hours after meals discussed with patient. Patient will be sent for upper endoscopy to rule out Marrero's, esophagitis, gastritis, gastric or peptic ulcer. Patient will start taking fiber supplement can add probiotic. Diagnosed with moderate diverticulosis throughout the whole colon last colonoscopy over 5 years ago. Patient can take senna in the evening. Discussed with patient the importance about good bowel prep day before procedure as well as clear liquid diet. She will return in 3 months to re-evaluate. Message sent to surgical schedulers to schedule upper endoscopy and colonoscopy with patient. Patient will call our office if she will have any worsening GI concerning symptoms. Patient is agreeable to this plan and verbalizes understanding of instructions. She was given the opportunity to ask questions and all questions answered. Thank you for allowing me to participate in her care Medications: New sennosides (Natural Senna Laxative) 17.2 mg (2 x 8.6 mg) PO BEDTIME 60 tabs 3RF constipation K59.00 - Constipation, unspecified methylcellulose (laxative) (Citrucel) take it with full glass of water 500 mg PO DAILY 30 tabs 2RF K59.00 - Constipation, unspecified Changed From famotidine 20 mg PO DAILY 90 tabs 0RF To famotidine 20 mg PO BEDTIME 30 tabs 3RF Coding Level of Care Code New Pt Level 3 (77724) Diagnoses Colon cancer screening Z12.11 Constipation, unspecified constipation type K59.00 Constipation type: unspecified constipation type Gastroesophageal reflux disease without esophagitis K21.9 Esophagitis presence: without esophagitis Time Spent (min) 40 Comment 30 minutes spent with patient and additional 10 minutes spent reviewing her records
[2023-10-13 11:28] VITALS: BP 122/60; PULSE 72; O2SAT 94; BMI 38.1
== END 2023-10-13 12:28 | disposition home or self-care (01) ==
PROVIDERS: PCP Internal Medicine; Referring Provider Internal Medicine; Visit Provider Nurse Practitioner Family
DX: Z12.11 Encounter for screening for malignant neoplasm of colon (principal); K59.00 Constipation, unspecified; K21.9 Gastro-esophageal reflux disease without esophagitis; Z01.818 Encounter for other preprocedural examination
CPT/HCPCS: 99203

== ENCOUNTER → 2023-10-13 11:02 | Outpatient (BNVA) | payer OTHER, SELFPAY | PROVIDERS: PCP Internal Medicine; Referring Provider Internal Medicine; Visit Provider Nurse Practitioner Family | DX: Z12.11 Encounter for screening for malignant neoplasm of colon (principal); K59.00 Constipation, unspecified; K21.9 Gastro-esophageal reflux disease without esophagitis | CPT/HCPCS: 99202 ==

== ENCOUNTER 2024-01-15 09:17 | Outpatient (AMB) | payer OTHER, SELFPAY ==
[2024-01-15 09:20] VITALS: BP 140/62; PULSE 70; O2SAT 96; BMI 38.5
--- NOTE | 2024-01-15 09:20 | MHC.OFFVIS ---
Vital Signs 01/15/24 09:20 Height 5 ft 4 in Weight 224 lb 6.889 oz BMI 38.5 BP 140/62 H Blood Pressure Location Rt brachial Position Sitting Pulse 70 Pulse Source Pulse Oximeter Pulse Oximetry (%) 96 Oxygen Delivery Method Room Air Intake Visit Reasons: 3 mos FUV. Intake Note: Relevant Flags or Indicators ? Requires Coffee Grower? Eunice Rula presents in office today for a scheduled 3 mos FUV pertaining to upcoming procedure. CC; Since last visit; labs ordered ? none. Rx ordered ? yes (senna, famotidine, citrucel). Diagnostics/images ordered ? none. Relevant GI Sx as reported per pt? Fecal abnormalities o?? Constipation -- Pt states that this is better since last visit but still not resolved. Pt typically has 1-2 movements q48 hours. ? Abdominal Pain o?? Upper + Left? Early satiety ? Bloating ? Hx of any recent surgeries? None Coffee Grower Required: No Allergies codeine Allergy (Unknown, Verified 01/15/24 09:20) Swelling, rash HPI HPI 3 mos FUV.: Details: LAST VISIT: Colon cancer screening Constipation GERD (gastroesophageal reflux disease) Plan Patient can continue omeprazole in the morning and famotidine at bedtime. Avoid dietary triggers and late night snacking. Staying upright for minimum 3 hours after meals discussed with patient. Patient will be sent for upper endoscopy to rule out Marrero's, esophagitis, gastritis, gastric or peptic ulcer. Patient will start taking fiber supplement can add probiotic. Diagnosed with moderate diverticulosis throughout the whole colon last colonoscopy over 5 years ago. Patient can take senna in the evening. Discussed with patient the importance about good bowel prep day before procedure as well as clear liquid diet. She will return in 3 months to re-evaluate. Message sent to surgical schedulers to schedule upper endoscopy and colonoscopy with patient. Patient will call our office if she will have any worsening GI concerning symptoms. Patient is agreeable to this plan and verbalizes understanding of instructions. She was given the opportunity to ask questions and all questions answered. ? Thank you for allowing me to participate in her care Medications New sennosides (Natural Senna Laxative) 17.2 mg (2 x 8.6 mg) PO BEDTIME 60 tabs 3RF constipation K59.00 methylcellulose (laxative) (Citrucel) take it with full glass of water 500 mg PO DAILY 30 tabs 2RF K59.00 Changed Changed From famotidine 20 mg PO DAILY 90 tabs 0RF Changed To famotidine 20 mg PO BEDTIME 30 tabs 3RF TODAY'S VISIT Patient is here today for follow-up and to discuss prep before going for colonoscopy. Colonoscopy scheduled for March 25. Patient reports that she has been feeling better. Patient is taking omeprazole in the morning and famotidine at bedtime. Her symptoms of acid reflux are suppressed for the most part. Patient is trying to avoid eating late at night. Since starting senna patient is moving her bowels better now. Occasional left lower quadrant pain and cramping. Patient reports to be feeling gassy at times. Patient had no issues with anesthesia in the past. No history of sleep apnea. Not on any anticoagulation medication. Patient denies any cardiac or respiratory symptoms. [facility] Medical History Vitamin D deficiency Obesity (BMI 30-39.9) Allergic rhinitis GERD (gastroesophageal reflux disease) Acquired hypothyroidism Sjogren syndrome with other organ involvement Long-term use of high-risk medication Positive JESUS (antinuclear antibody) Surgical History Hx of colonoscopy (~2019) Hx of cholecystectomy Hx of dilation and curettage Hx of tubal ligation History of left oophorectomy Hx of hysterectomy History of breast biopsy Family History Mother Cervical cancer HTN (hypertension) Diabetes Social History Housing: Apartment Alcohol intake: never Patient Tobacco Use Status: Never used Tobacco e-Cigarette/Vaping Use: Never Used Second Hand Smoke Exposure: No service: No Current occupational status: unemployed 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 Cognitive needs: No Hearing needs: No Vision needs: Yes (glasses) Review of Systems Const Denies weight gain and Denies weight loss ENT Reports no additional complaints, Denies dysphagia and Denies odynophagia Card Reports no additional complaints Resp Reports no additional complaints GI Denies abdominal pain, Denies belching, Denies melena, Denies bloating, Denies change in bowel habits, Denies dysphagia, Denies excessive flatus, Denies dyspepsia, Denies heartburn, Denies diarrhea, Denies loose stools, Denies nausea, Denies odynophagia and Denies vomiting Reports no additional complaints Musc Reports no additional complaints Neuro Reports no additional complaints Psych Reports no additional complaints Endo Reports no additional complaints Physical Exam Const General: healthy appearing and no acute distress Nutritional Appearance: obese Orientation/consciousness: patient oriented x3 Eyes General: appearance normal, both eyes and all related structures Resp Effort & Inspection: normal respiratory effort, able to speak in complete sentences, no tracheal deviation and symmetric chest movement Auscultation: clear to auscultation bilaterally Cardio Rate: regular rate GI Inspection: Yes normal to inspection, No distended and Yes obesity Palpation (GI): Soft to palpation, not firm, nontender and No hepatosplenomegaly present Auscultation: normal bowel sounds General: Yes no CVA tenderness Back/Spine/Pelvis Back: no CVA tenderness Skin General skin exam: elasticity normal, turgor normal and dry skin Neuro General: patient oriented x3 Psych Appearance: grossly normal Mental Status: mental status grossly normal Assessment & Plan Assessment & Plan (1) Colon cancer screening: Code(s): Z12.11 - Encounter for screening for malignant neoplasm of colon Category: Medical (2) GERD (gastroesophageal reflux disease): Code(s): K21.9 - Gastro-esophageal reflux disease without esophagitis Category: Medical Qualifiers: Esophagitis presence: without esophagitis Qualified Code(s): K21.9 - Gastro-esophageal reflux disease without esophagitis Plan What to expect before during and after procedure discussed with patient. Patient will go for upper endoscopy and colonoscopy. Stressed the importance of good bowel prep and clear liquid diet day before procedure. Continue bowel regimen. Increase fluid intake and activity to promote better bowel motility. I will see patient after the procedure, sooner on as needed basis. She is agreeable to this plan and verbalizes understanding of instructions. She was given the opportunity to ask questions and all questions answered. Thank you for allowing me to participate in her care Medications: New bisacodyl (Dulcolax (bisacodyl)) take 4 tabs at noon the day before your colonoscopy 20 mg (4 x 5 mg) PO ONCE 1 day 4 tabs 0RF Z12.11 - Encounter for screening for malignant neoplasm of colon polyethylene glycol 3350 (Miralax) As directed by gastroenterology department at [facility] 238 grams PO ONCE 238 grams 0RF Z12.11 - Encounter for screening for malignant neoplasm of colon Coding Level of Care Code Est Pt Level 3 (72589) Diagnoses Colon cancer screening Z12.11 Gastroesophageal reflux disease without esophagitis K21.9 Esophagitis presence: without esophagitis Time Spent (min) 25 Comment 15 minutes spent with patient and additional 10 minutes spent reviewing her records
== END 2024-01-15 09:44 | disposition home or self-care (01) ==
PROVIDERS: PCP Internal Medicine; Visit Provider Nurse Practitioner Family
DX: Z12.11 Encounter for screening for malignant neoplasm of colon (principal); K21.9 Gastro-esophageal reflux disease without esophagitis; Z01.818 Encounter for other preprocedural examination
CPT/HCPCS: 99213

== ENCOUNTER → 2024-01-15 09:17 | Outpatient (BNVA) | payer OTHER, SELFPAY | PROVIDERS: PCP Internal Medicine; Visit Provider Nurse Practitioner Family | DX: Z01.818 Encounter for other preprocedural examination (principal); K21.9 Gastro-esophageal reflux disease without esophagitis | CPT/HCPCS: 99212 ==

== ENCOUNTER 2024-02-04 07:30 | Outpatient (REF) | payer OTHER, SELFPAY ==
[2024-02-04 07:56] LABS: MANUAL DIFF FLAG NO
[2024-02-04 08:13] LABS: Appearance Urine Clear; Color Urine Yellow; Glucose Urine UA Negative (Negative); Leukocyte Esterase Urine Negative (Negative); Nitrite Urine Negative (Negative); Specific Gravity - Urine 1.025 (1.005-1.025); Urine Blood Negative (Negative); Urine Ketones Negative (Negative); Urine Protein Negative (Neg-Trace)
[2024-02-04 08:15] LABS: Basophils Absolute Auto 0.1 X10*3/uL (0.0-0.2); Basophils Percent Auto 0.7 % (0-2); Eosinophils Absolute Auto 0.2 X10*3/uL (0.0-0.4); Eosinophils Percent Auto 3.4 % (0-4); Hematocrit 44.9 % (37.0-47.0); Hemoglobin 14.8 g/dl (12.0-16.0); Imm Gran Abs Auto 0.02 X10*3/uL (0.00-0.03); Imm Gran Pct Auto 0.3 % (0.0-0.4); Lymphocytes Absolute Auto 2.8 X10*3/uL (1.2-4.9); Lymphocytes Percent Auto 38.9 % (20-40); Mean Corpuscular Hemoglobin 27.8 pg (27.0-33.0); Mean Corpuscular Volume 84.4 fL (80.0-98.0); Mean Platelet Volume 10.2 fL (9.4-12.3); Monocytes Absolute Auto 0.9 X10*3/uL (0.1-1.2); Monocytes Percent Auto 13.3 % (2-11); Neutrophils Absolute Auto 3.1 x10*3/uL (2.0-8.3); Neutrophils Percent Auto 43.4 % (45-73); Platelet Count 337 X10*3/uL (160-400); Red Blood Count 5.32 X10*6/uL (4.20-5.50); Red Cell Distribution Width 14.3 % (11.0-16.0); White Blood Count 7.1 X10*3/uL (4.8-10.8)
[2024-02-04 08:26] LABS: Bacteria Urine Trace (None Seen); Hyaline Casts Urine 0-2 /LPF (0-2); RBC Urine 0-2 /HPF (0-2); WBC Urine 0-5 /HPF (0-5)
[2024-02-04 08:40] LABS: Creatinine Urine 218.95 mg/dL; Protein/Creatinine Ratio, Ur 0.05 (<0.2); Total Protein Urine Random 12 mg/dL (<12)
[2024-02-04 08:45] LABS: Alanine Aminotransferase 37 U/L (0-31); Albumin Level 3.9 g/dL (3.5-5.0); Alkaline Phosphatase 81 U/L (39-117); Anion Gap 10 (12-20); Aspartate Amino Transferase 29 U/L (5-31); Bilirubin Total 0.4 mg/dL (0.0-1.0); Blood Urea Nitrogen 10 mg/dL (9-16); C Reactive Protein 0.75 mg/dL (< or = 0.50); Calcium 9.2 mg/dL (8.4-10.2); Carbon Dioxide 26 mmol/L (22-29); Chloride 109 mmol/L (96-108); Estimated Glomerular Filt Rate > 60; Glucose Random 112 mg/dL (60-115); Potassium 4.1 mmol/L (3.3-5.1); Sodium 141 mmol/L (135-145); Total Protein 7.3 g/dL (6.5-8.0)
[2024-02-04 08:53] LABS: Erythrocyte Sedimentation Rate 7 MM/HR (0-20)
[2024-02-04 09:01] LABS: Free T4 (Free Thyroxine) 0.72 ng/dL (0.71-1.85); Thyroid Stimulating Hormone 7.28 uIU/mL (0.32-4.0)
[2024-02-05 14:33] LABS: Complement C3 158 mg/dL (83-193)
[2024-02-05 21:32] LABS: Anti DNA DS Antibody 6 IU/mL
[2024-02-10 14:22] LABS: DNAds, Crithidia Antibody Negative (Negative)
== END 2024-02-04 07:31 | disposition home or self-care (01) ==
LOC: HO.LAB 07:30
PROVIDERS: PCP Internal Medicine; Visit Provider Student in an Organized Health Care Education/Training Program
DX: E03.9 Hypothyroidism, unspecified (principal); M32.9 Systemic lupus erythematosus, unspecified
CPT/HCPCS: 36415; 80053; 81001; 82570; 84156; 84439; 84443; 85025; 85652; 86140; 86160; 86225; 86255

== ENCOUNTER 2024-02-08 07:44 | Outpatient (AMB) | payer OTHER, SELFPAY ==
--- NOTE | 2024-02-08 08:10 | MHC.OFFVIS ---
Vital Signs 02/08/24 08:14 Height 5 ft 4 in Weight 223 lb 15.834 oz BMI 38.4 BP 115/60 Blood Pressure Location Rt brachial Position Sitting Pulse 79 Pulse Source Pulse Oximeter Pulse Oximetry (%) 97 Oxygen Delivery Method Room Air Intake Visit Reasons: SLE/CM Intake Note: Patient presents for SLE. Allergies codeine Allergy (Unknown, Verified 02/08/24 08:13) Swelling, rash Medication List - Last Reconciled 02/08/24 by Zoran Vinson MD bisacodyl (Dulcolax (bisacodyl)) 20 mg (4 x 5 mg) PO ONCE 1 day cetirizine 10 mg PO DAILY cholecalciferol (vitamin D3) 50 mcg PO DAILY 90 days diclofenac sodium 1% (Arthritis Pain (diclofenac)) 2 grams topical QID PRN famotidine 20 mg PO BEDTIME fluticasone propionate 50 mcg/actuation (Flonase Allergy Relief) 1 spray intranasal DAILY gabapentin 600 mg (2 x 300 mg) PO BEDTIME hydroxychloroquine 300 mg (1.5 x 200 mg) PO DAILY levothyroxine 75 mcg PO DAILY lifitegrast 5% (Xiidra) 1 drp ophthalmic (eye) Q12H methylcellulose (laxative) (Citrucel) 500 mg PO DAILY omeprazole 20 mg PO DAILY polyethylene glycol 3350 (Miralax) 17 grams PO DAILY 30 days polyethylene glycol 3350 (Miralax) 238 grams PO ONCE sennosides (Natural Senna Laxative) 17.2 mg (2 x 8.6 mg) PO BEDTIME sumatriptan succinate 50 mg PO .q8 PRN tizanidine 4 mg PO BEDTIME 30 days HPI Comments Details: 58-year-old female with SLE returns for follow-up. Last visit we lowered her hydroxychloroquine to 300 mg daily. She states that has been having pain in both her shoulders, more towards the right, she can not sleep on her sides. She continues to have diffuse body aches. She sometimes doubles her gabapentin to 600 mg at night. Most recent history by Dr. Domínguez 11/2022: The patient returns for evaluation of fibromyalgia and presumed lupus. She remains on hydroxychloroquine 200 mg twice a day. In general she still has scattered widespread pains but no signs of inflammation. Most problematic in the last month has been some left lateral hip pain. She does not recall similar episodes. The pains come on almost exclusively when she lies on the hip at night. There is some discomfort when she rises from a chair. There has been no recent accompanying back pain or radiation of this hip pain anteriorly or down the leg. We discussed before that she did not have much evidence for active lupus in the past year or 2. She did have some lab work done but not all it was completed. [facility] Medical History Vitamin D deficiency Obesity (BMI 30-39.9) Allergic rhinitis GERD (gastroesophageal reflux disease) Acquired hypothyroidism Sjogren syndrome with other organ involvement Long-term use of high-risk medication Positive JESUS (antinuclear antibody) Surgical History Hx of colonoscopy (~2019) Hx of cholecystectomy Hx of dilation and curettage Hx of tubal ligation History of left oophorectomy Hx of hysterectomy History of breast biopsy Family History Mother Cervical cancer HTN (hypertension) Diabetes Social History Housing: Apartment Alcohol intake: never Patient Tobacco Use Status: Never used Tobacco e-Cigarette/Vaping Use: Never Used Second Hand Smoke Exposure: No service: No Current occupational status: unemployed 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 Cognitive needs: No Hearing needs: No Vision needs: Yes (glasses) Review of Systems Const Reports body aches Musc Reports back pain, Reports arthralgias and Reports limited range of motion Skin/Breast Denies rash Psych Reports abnormal sleep pattern and Reports anxiety Physical Exam Vital Signs: Last Vital Signs Pulse 79 02/08/24 08:14 BP 115/60 02/08/24 08:14 Pulse Ox 97 02/08/24 08:14 Oxygen Delivery Method Room Air 02/08/24 08:14 BMI result Body Mass Index 38.4 Const General: cooperative, healthy appearing and comfortable Nutritional Appearance: obese morbidly obese Orientation/consciousness: patient oriented x3 Limitations: no limitations HEENT Head: Yes normocephalic and Yes atraumatic Resp Effort & Inspection: normal respiratory effort and able to speak in complete sentences Auscultation: clear to auscultation bilaterally Cardio Rate: regular rate Rhythm: regular rhythm Neuro General: patient oriented x3 Extrem Other: Multiple fibromyalgia tender points No active synovitis Limited right shoulder abduction Positive empty can test infraspinatus test on the right Bilateral cervical paraspinal muscle with range of motion of neck Normal nailfold capillaroscopy Assessment & Plan Assessment & Plan (1) SLE (systemic lupus erythematosus related syndrome): Comment: Onset 2016: Arthritis, facial rash, +++SSa +++SSb, +DsDNA hydroxychloroquine probably started in 2018, reduced to 300 mg daily 09/2023 Code(s): M32.9 - Systemic lupus erythematosus, unspecified Category: Medical Plan: 58-year-old female with mild SLE returns for follow-up. Her SLE is well controlled on hydroxychloroquine 300 mg daily. Continue hydroxychloroquine 300 mg daily Labs before next visit in 4 months (2) Long-term use of high-risk medication: Comment: Hydroxychloroquine since [address] Gamboa Code(s): Z79.899 - Other prison (current) drug therapy Category: Medical Plan: Discussed risk of retinopathy with hydroxychloroquine. Follow-up regularly with director of securities and real estate (3) Fibromyalgia: Code(s): M79.7 - Fibromyalgia Category: Medical Plan: Patient is taking gabapentin 300 mg nightly. Sometimes takes 600 at night Increase gabapentin to 600 mg nightly (4) Degenerative cervical disc: Code(s): M50.30 - Other cervical disc degeneration, unspecified cervical region Category: Medical Plan: Referred to PT (5) Right rotator cuff tendinitis: Code(s): M75.81 - Other shoulder lesions, right shoulder Category: Medical Plan: Referred to PT Plan I spent 35 minutes reviewing patient's chart, evaluating patient, ordering diagnostic workup, counseling patient and documenting in the chart Orders: Orders Complement C3 4 Months M32.9 - Systemic lupus erythematosus, unspecified DNA Double Stranded-Crithidia 4 Months M32.9 - Systemic lupus erythematosus, unspecified Erythrocyte Sedimentation Rate 4 Months M32.9 - Systemic lupus erythematosus, unspecified Protein Creatinine Ratio, Ur 4 Months M32.9 - Systemic lupus erythematosus, unspecified PT Evaluation and Treatment Today M50.30 - Other cervical disc degeneration, unspecified cervical region, M75.81 - Other shoulder lesions, right shoulder Anti DNA DS Antibody 4 Months M32.9 - Systemic lupus erythematosus, unspecified Complement C4 4 Months M32.9 - Systemic lupus erythematosus, unspecified C Reactive Protein 4 Months M32.9 - Systemic lupus erythematosus, unspecified UA w Microscopic 4 Months M32.9 - Systemic lupus erythematosus, unspecified Complete Blood Count Auto Diff 4 Months M32.9 - Systemic lupus erythematosus, unspecified Comprehensive Met. Panel 4 Months M32.9 - Systemic lupus erythematosus, unspecified Medications: Changed From gabapentin 300 mg PO BEDTIME 30 caps 5RF M32.9 - Systemic lupus erythematosus, unspecified To gabapentin 600 mg (2 x 300 mg) PO BEDTIME 180 caps 1RF M32.9 - Systemic lupus erythematosus, unspecified Coding Level of Care Code Est Pt Level 4 (89657) Complex EM visit Add On G2211 Diagnoses SLE (systemic lupus erythematosus related syndrome) M32.9 Long-term use of high-risk medication Z79.899 Fibromyalgia M79.7 Degenerative cervical disc M50.30 Right rotator cuff tendinitis M75.81
[2024-02-08 08:14] VITALS: BP 115/60; PULSE 79; O2SAT 97; BMI 38.4
== END 2024-02-08 08:34 | disposition home or self-care (01) ==
PROVIDERS: PCP Internal Medicine; Visit Provider Student in an Organized Health Care Education/Training Program
DX: M32.9 Systemic lupus erythematosus, unspecified (principal); Z79.899 Other long term (current) drug therapy; M79.7 Fibromyalgia; M50.30 Other cervical disc degeneration, unspecified cervical region; M75.81 Other shoulder lesions, right shoulder
CPT/HCPCS: 99214; G2211

== ENCOUNTER → 2024-02-08 07:44 | Outpatient (BNVA) | payer OTHER, SELFPAY | PROVIDERS: PCP Internal Medicine; Visit Provider Student in an Organized Health Care Education/Training Program | DX: M32.9 Systemic lupus erythematosus, unspecified (principal); M79.7 Fibromyalgia; M50.30 Other cervical disc degeneration, unspecified cervical region; M75.81 Other shoulder lesions, right shoulder; Z79.899 Other long term (current) drug therapy | CPT/HCPCS: 99212 ==

== ENCOUNTER 2024-03-25 10:51 | Day surgery (SDC) | payer OTHER, SELFPAY ==
[2024-03-22 12:41] VITALS: BMI 38.4
--- NOTE | 2024-03-24 10:28 | P.CONAN_ITS ---
HPI - Anesthesia Eval Consult details Narrative: 58yo F for Upper Endoscopy and Colonoscopy Plaquinel for SLE PMFSH Active Problems Active Problems: All Active Problems Right rotator cuff tendinitis (Acute) Degenerative cervical disc (Acute) Osteoporosis screening (Acute) Cervical cancer screening (Acute) Colon cancer screening (Acute) Annual physical exam (Acute) Long-term use of hydroxychloroquine (Acute) Routine gynecological examination (Acute) Trochanteric bursitis, left hip (Acute) Skin lesion of hand (Acute) Hip pain, left (Acute) Constipation (Acute) Elevated fasting glucose (Acute) Sjogren syndrome with inflammatory arthritis (Acute) Fibromyalgia (Acute) Seasonal allergies (Acute) Acid reflux (Acute) Insomnia (Acute) Migraine with aura (Acute) SLE (systemic lupus erythematosus related syndrome) (Acute) Hypothyroid (Acute) Anxiety and depression (Acute) Vitamin D deficiency (Acute) Obesity (BMI 30-39.9) (Acute) Allergic rhinitis (Acute) GERD (gastroesophageal reflux disease) (Acute) Acquired hypothyroidism (Acute) Long-term use of high-risk medication (Acute) Positive JESUS (antinuclear antibody) (Acute) Past Medical History Medical History (Updated 03/24/24 @ 10:03 by Loni Olvera RN) SLE (systemic lupus erythematosus) Vitamin D deficiency Obesity (BMI 30-39.9) Allergic rhinitis GERD (gastroesophageal reflux disease) Acquired hypothyroidism Sjogren syndrome with other organ involvement Long-term use of high-risk medication Positive JESUS (antinuclear antibody) Family History Family History Mother Cervical cancer HTN (hypertension) Diabetes Surgical History Surgical History Hx of colonoscopy (~2019) Hx of cholecystectomy Hx of dilation and curettage Hx of tubal ligation History of left oophorectomy Hx of hysterectomy History of breast biopsy Social History Social History Housing: Apartment Alcohol intake: never Patient Tobacco Use Status: Never used Tobacco e-Cigarette/Vaping Use: Never Used Second Hand Smoke Exposure: No service: No Current occupational status: unemployed 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
[2024-03-25 11:12] VITALS: BMI 37.9
[2024-03-25 11:18] VITALS: BP 113/68; PULSE 68; RESP 15; TEMP 36.4; O2SAT 95
[2024-03-25] MEDS: Lactated Ringers 1,000 ML 100 ML IVCONT (11:37)
--- NOTE | 2024-03-25 12:43 | MHC.SHP ---
Pre-Procedural Eval Section A - 24 Hr Update-Section A only Date of Service: 03/25/24 The patient is an INPATIENT: No The patient has been examined within 24 hours of the surgical procedure. The History & Physical has been completed within 30 days and I have reviewed it.: No Section B - Complete if H&P > 30 days Chief Complaint: Surveillance for colon polyps, GERD Relevant Family History (Specify if Yes): No Relevant Social History: None Present Medications: see Short Stay Collaborative assessment Medical History: Significant History (Vitamin D deficiency Obesity (BMI 30-39.9) Allergic rhinitis GERD (gastroesophageal reflux disease) Acquired hypothyroidism Sjogren syndrome with other organ involvement Long-term use of high-risk medication Positive JESUS (antinuclear antibody)) History of Previous Operations: Relevant previous surgery/procedure and date(s) (Hx of colonoscopy (~2018) Hx of cholecystectomy Hx of dilation and curettage Hx of tubal ligation History of left oophorectomy Hx of hysterectomy History of breast biopsy) Allergies: Allergies Allergy/AdvReac Type Severity Reaction Status Date / Time codeine Allergy Unknown Swelling, Verified 03/25/24 11:10 rash Review of Systems Sugical H&P ROS: Negative: Constitution, Cardiovascular, Respiratory and Gastrointestinal Exam Surgical H&P Exam: Normal: Heart, Normal: Lungs, Normal: Extremities and Normal: Abdomen Plan Diagnosis/Plan: Unchanged I have reviewed the history and physical and performed a pertinent physical examination on my patient. No changes have occurred unless specified. Time Spent With Patient Time: Total time managing care of this patient today ____ minutes.
--- NOTE | 2024-03-25 12:55 | HO.ANESPROP2 ---
[facility] Active Problems Active Problems: All Active Problems Right rotator cuff tendinitis (Acute) Degenerative cervical disc (Acute) Osteoporosis screening (Acute) Cervical cancer screening (Acute) Colon cancer screening (Acute) Annual physical exam (Acute) Long-term use of hydroxychloroquine (Acute) Routine gynecological examination (Acute) Trochanteric bursitis, left hip (Acute) Skin lesion of hand (Acute) Hip pain, left (Acute) Constipation (Acute) Elevated fasting glucose (Acute) Sjogren syndrome with inflammatory arthritis (Acute) Fibromyalgia (Acute) Seasonal allergies (Acute) Acid reflux (Acute) Insomnia (Acute) Migraine with aura (Acute) SLE (systemic lupus erythematosus related syndrome) (Acute) Hypothyroid (Acute) Anxiety and depression (Acute) Vitamin D deficiency (Acute) Obesity (BMI 30-39.9) (Acute) Allergic rhinitis (Acute) GERD (gastroesophageal reflux disease) (Acute) Acquired hypothyroidism (Acute) Long-term use of high-risk medication (Acute) Positive JESUS (antinuclear antibody) (Acute) Past Medical History Medical History Migraine Fibromyalgia SLE (systemic lupus erythematosus) Vitamin D deficiency Obesity (BMI 30-39.9) Allergic rhinitis GERD (gastroesophageal reflux disease) Acquired hypothyroidism Sjogren syndrome with other organ involvement Long-term use of high-risk medication Positive JESUS (antinuclear antibody) Functional capacity: independent ambulation Patient : No Family History Family History Mother Cervical cancer HTN (hypertension) Diabetes Family history of problems with anesthesia: No Surgical History Surgical History Hx of colonoscopy (~2019) Hx of cholecystectomy Hx of dilation and curettage Hx of tubal ligation History of left oophorectomy Hx of hysterectomy History of breast biopsy History of Problems with Anesthesia: No Social History Social History Housing: Apartment Alcohol intake: never Patient Tobacco Use Status: Never used Tobacco e-Cigarette/Vaping Use: Never Used Second Hand Smoke Exposure: No Use of substances other than those prescribed or required for medical reasons: No Are you DNR?: No Advance Directives: No Advance Directives Information Provided: Yes service: No Current occupational status: unemployed 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 Cognitive needs: No Hearing needs: No Vision needs: Yes (glasses) Meds Allergies Allergy/AdvReac Type Severity Reaction Status Date / Time codeine Allergy Unknown Swelling, Verified 03/25/24 11:10 rash Active Medications: Current Medications Lactated Ringer's (Lr) 1,000 mls @ 100 mls/hr IVCONT .Q10H DEIDRA Last Admin: 03/25/24 11:37 Dose: 100 mls/hr Exam Height,Weight and Vital Signs: Height 5 ft 4 in Weight 100.244 kg Last Vital Signs Temp 97.6 F 03/25/24 11:18 Pulse 68 03/25/24 11:18 Resp 15 03/25/24 11:18 BP 113/68 03/25/24 11:18 Pulse Ox 95 03/25/24 11:18 O2 Del Method Room Air 03/25/24 11:18 Airway Mallampati Class: II TM Dist: >3cm Neck ROM: Full Heart: RRR Lungs: CTA Assessment and Plan Assessment Anesthesia Assessment: Anesthesia Plan Discussed and Chart Reviewed Final Anesthetic Review Family History of Problems with Anesthesia: No History of Problems with Anesthesia: No ASA Class: II Final Preanesthetic Review: Meds/Allgs Chart Reviewed, Consent Obtained/Reviewed and Anes Risks/Benef Reviewed Patient Risk: Intermediate Procedure Risk: Low Anesthetic Plan Anesthetic Plan: MAC: Disposition: Standard PACU
--- NOTE | 2024-03-25 13:44 | HO.OPN-COLON ---
Colonoscopy Operative Note Operative Note Date of Service: 03/25/24 Narrative: FLEXIBLE TRANSORAL UPPER GASTROINTESTINAL ENDOSCOPY WITH BIOPSIES AND COLONOSCOPY TILL CECUM WITH BIOPSIES AND SNARE POLYPECTOMY Pre-op diagnosis: Colon cancer screening, constipation, GERD Post-op diagnosis: Esophagitis, esophageal nodule, Gastritis, Gastric antral nodule, Colon Polyps, Diverticulosis, hemorrhoids Specimens and Sources: : A: GASTRIC ANTRUM BXS X H. PYLORI ?B: GASTRIC ANTRUM NODULE BXS ?C: GASTRIC BODY BXS ?D: NODULE G.E JUNCTION BXS ?E: TRANSVERSE COLON POLYP BXS Endoscopist:? Fabrice Uribe MD Anesthesia:?MAC UPPER ENDOSCOPY Consent: Indications for the procedure and potential complications of bleeding, perforation, reaction to medications and missed diagnosis were discussed with the patient and informed consent was obtained. Instrument: Olympus GIF H 190 mid size upper endoscope Monitoring: Vital signs and clinical assessment, continuous EKG monitoring, Pulse oximetry, Carbon Dioxide monitoring and blood pressure monitoring were done throughout the procedure. Procedure: The patient was placed in the left lateral decubitis position and pre-procedure medications were administered and a bite block was placed. The endoscope was inserted into the mouth and advanced under direct vision to the third part of duodenum. A careful inspection was made as the upper endoscope was withdrawn including a retroflexed examination of the proximal stomach; Findings and interventions are described below. Findings: Larynx: Normal Esophagus: GE junction at 35 cms. A single 1 cms healing erosion ar GE junction. A 7-8 mm benign appearing nodule on the gastric side of GE junction - biopsied. Stomach: Moderate diffuse gastric erythema - biopsies were obtained from the antrum. An 8-9 mm benign appearing nodule in the prepyloric area - biopsied. Grade 2 flap valve on retroflexed examination of the cardia. Duodenum: Normal bulb and descending duodenum Intervention: Biopsies as noted above COLONOSCOPY PROCEDURE NOTE Instrument: Olympus PCF H 190 L variable stiffness pediatric colonoscope Monitoring: Vital signs and clinical assessment, intermittent blood pressure monitoring, continuous EKG monitoring, Pulse oximetry and Carbon Dioxide monitoring were done throughout the procedure. Please see anesthesia flowsheet. Colon withdrawl time was 16 minutes. Procedure: The patient was placed in the left lateral decubitis position and pre-procedure medications were administered. After a digital rectal examination of the ano-rectum, the video colonoscope was inserted into the rectum and advanced through the colon to the cecum. The colonoscope was slowly withdrawn in a retrograde panoramic fashion and the colon mucosa was carefully examined including a retroflexed view of the rectum. Findings and interventions are described below. Procedure Difficulty: without difficulty Findings: Terminal Ileum: Not evaluated Cecum: Normal Ascending Colon: Moderate diverticulosis throughout the entire colon Transverse Colon: A 4-5 mm sessile polyp - removed with a cold biopsy. Moderate diverticulosis throughout the entire colon Descending Colon: Moderate diverticulosis throughout the entire colon Sigmoid Colon: Severe diverticulosis with luminal narrowing Rectum: Normal Ano-rectum: Moderate internal hemorrhoids Colon preparation: Good after some irrigation. [place] Bowel Preparation Scale Right colon; 2 Transverse colon: 2 Left colon; 2 (0 = Unprepared colon segment with mucosa not seen due to solid stool that cannot be cleared. 1 = Portion of mucosa of the colon segment seen, but other areas of the colon segment not well seen due to staining, residual stool and/or opaque liquid. 2 = Minor amount of residual staining, small fragments of stool and/or opaque liquid, but mucosa of colon segment seen well. 3 = Entire mucosa of colon segment seen well with no residual staining, small fragments of stool or opaque liquid) Impression and Post Procedure Diagnosis: Endoscopy Findings: ESOPHAGUS: A single 1 cms healing erosion ar GE junction. A 7-8 mm benign appearing nodule on the gastric side of GE junction - biopsied. STOMACH: Moderate diffuse gastric erythema - biopsies were obtained from the antrum. An 8-9 mm benign appearing nodule in the prepyloric area - biopsied. DUODENUM: Colonoscopy Findings: One small polyp was removed Moderate diverticulosis seen in the entire colon Moderate hemorrhoids on retroflexed exam. Plan: Pt has a FU appointment on 04/08/24 with Betina Hoyos NP Repeat Colonoscopy in 5 years if polyps are adenomatous and 10 year if polyps are hyperplastic. Above findings were reviewed with the patient and relevant handouts were given and the discharge area.
[2024-03-25 14:20] VITALS: BP 97/48; PULSE 90; RESP 16; TEMP 36.1; O2SAT 95
[2024-03-25 14:35] VITALS: BP 119/78; PULSE 90; RESP 16; TEMP 36.1; O2SAT 97
--- NOTE | 2024-03-25 14:42 | HO.POSTANES ---
Post Anesthesia Evaluation Post Anesthesia Evaluation Date of Service: 03/25/24 Vital Signs: Vital Signs Temp Pulse Resp BP Pulse Ox O2 Del Method 03/25/24 14:35 97 F 90 16 119/78 97 Room Air 03/25/24 14:20 97 F 90 16 97/48 L 95 Room Air 03/25/24 11:18 97.6 F 68 15 113/68 95 Room Air Anesthesia: Monitored Mental Status: Awake Pain Control: Satisfactory Nausea/Vomiting: None Hydration: Adequate Anesthesia-Related Issues: No Anes. Related Issues
== END 2024-03-25 15:00 | disposition home or self-care (01) ==
PROVIDERS: PCP Internal Medicine; Visit Provider Internal Medicine Gastroenterology
PROC: (CPT 45385; principal; 2024-03-25 12:50)
DX: Z12.11 Encounter for screening for malignant neoplasm of colon (principal); K63.5 Polyp of colon; K57.30 Diverticulosis of large intestine without perforation or abscess without bleeding; K64.8 Other hemorrhoids; K20.90 Esophagitis, unspecified without bleeding; K29.50 Unspecified chronic gastritis without bleeding; B96.81 Helicobacter pylori [H. pylori] as the cause of diseases classified elsewhere; K31.7 Polyp of stomach and duodenum; K21.9 Gastro-esophageal reflux disease without esophagitis; M32.9 Systemic lupus erythematosus, unspecified; Z79.899 Other long term (current) drug therapy
CPT/HCPCS: 45385; 45380; 43239; 88305; 88313; 88342; J1596; J2003; J2704

== ENCOUNTER → 2024-03-25 10:51 | Outpatient (BNV) | payer OTHER, SELFPAY | PROVIDERS: PCP Internal Medicine; Visit Provider Internal Medicine Gastroenterology | DX: Z12.11 Encounter for screening for malignant neoplasm of colon (principal); D12.3 Benign neoplasm of transverse colon; K59.00 Constipation, unspecified; K57.90 Diverticulosis of intestine, part unspecified, without perforation or abscess without bleeding; K21.00 Gastro-esophageal reflux disease with esophagitis, without bleeding; K31.7 Polyp of stomach and duodenum; K25.9 Gastric ulcer, unspecified as acute or chronic, without hemorrhage or perforation | CPT/HCPCS: 43239; 45380 ==

== ENCOUNTER 2024-04-08 11:54 | Outpatient (AMB) | payer OTHER, SELFPAY ==
[2024-04-08 11:59] VITALS: BP 128/66; PULSE 76; O2SAT 94; BMI 38.4
--- NOTE | 2024-04-08 11:59 | A.OFFVIS_ITS ---
Vital Signs 04/08/24 11:59 Height 5 ft 4 in Weight 223 lb 15.834 oz BMI 38.4 BP 128/66 Blood Pressure Location Rt brachial Position Sitting Pulse 76 Pulse Source Pulse Oximeter Pulse Oximetry (%) 94 Oxygen Delivery Method Room Air Intake Visit Reasons: s/p egd/colon Intake Note: ESTABLISHED PATIENT Reason; s/p duo w/ RM Changes/concerns? Pt reports having increased gas and mild dysphagia since having procedure 03/25 Allergies codeine Allergy (Unknown, Verified 04/08/24 12:00) Swelling, rash HPI HPI s/p egd/colon: Details: LAST VISIT Colon cancer screening GERD (gastroesophageal reflux disease) Plan What to expect before during and after procedure discussed with patient. Patient will go for upper endoscopy and colonoscopy. Stressed the importance of good bowel prep and clear liquid diet day before procedure. Continue bowel regimen. Increase fluid intake and activity to promote better bowel motility. I will see patient after the procedure, sooner on as needed basis. She is agreeable to this plan and verbalizes understanding of instructions. She was given the opportunity to ask questions and all questions answered. ? Thank you for allowing me to participate in her care Medications New bisacodyl (Dulcolax (bisacodyl)) take 4 tabs at noon the day before your colonoscopy 20 mg (4 x 5 mg) PO ONCE 1 day 4 tabs 0RF Z12.11 polyethylene glycol 3350 (Miralax) As directed by gastroenterology department at [facility] 238 grams PO ONCE 238 grams 0RF Z12.11 UPPER ENDOSCOPY AND COLONOSCOPY Findings: Larynx: Normal Esophagus: GE junction at 35 cms. A single 1 cms healing erosion ar GE junction. A 7-8 mm benign appearing nodule on the gastric side of GE junction - biopsied. Stomach: Moderate diffuse gastric erythema - biopsies were obtained from the antrum. An 8-9 mm benign appearing nodule in the prepyloric area - biopsied. Grade 2 flap valve on retroflexed examination of the cardia. Duodenum: Normal bulb and descending duodenum Intervention: Biopsies as noted above COLONOSCOPY PROCEDURE NOTE Instrument: Olympus PCF H 190 L variable stiffness pediatric colonoscope Monitoring: Vital signs and clinical assessment, intermittent blood pressure monitoring, continuous EKG monitoring, Pulse oximetry and Carbon Dioxide monitoring were done throughout the procedure. Please see anesthesia flowsheet. Colon withdrawl time was 16 minutes. Procedure: The patient was placed in the left lateral decubitis position and pre-procedure medications were administered. After a digital rectal examination of the ano-rectum, the video colonoscope was inserted into the rectum and advanced through the colon to the cecum. The colonoscope was slowly withdrawn in a retrograde panoramic fashion and the colon mucosa was carefully examined including a retroflexed view of the rectum. Findings and interventions are described below. Procedure Difficulty: without difficulty Findings: Terminal Ileum: Not evaluated Cecum: Normal Ascending Colon: Moderate diverticulosis throughout the entire colon Transverse Colon: A 4-5 mm sessile polyp - removed with a cold biopsy. Moderate diverticulosis throughout the entire colon Descending Colon: Moderate diverticulosis throughout the entire colon Sigmoid Colon: Severe diverticulosis with luminal narrowing Rectum: Normal Ano-rectum: Moderate internal hemorrhoids Colon preparation: Good after some irrigation. [place] Bowel Preparation Scale Right colon; 2 Transverse colon: 2 Left colon; 2 (0 = Unprepared colon segment with mucosa not seen due to solid stool that cannot be cleared. 1 = Portion of mucosa of the colon segment seen, but other areas of the colon segment not well seen due to staining, residual stool and/or opaque liquid. 2 = Minor amount of residual staining, small fragments of stool and/or opaque liquid, but mucosa of colon segment seen well. 3 = Entire mucosa of colon segment seen well with no residual staining, small fragments of stool or opaque liquid) Impression and Post Procedure Diagnosis: Endoscopy Findings: ESOPHAGUS: A single 1 cms healing erosion ar GE junction. A 7-8 mm benign appearing nodule on the gastric side of GE junction - biopsied. STOMACH: Moderate diffuse gastric erythema - biopsies were obtained from the antrum. An 8-9 mm benign appearing nodule in the prepyloric area - biopsied. DUODENUM: Colonoscopy Findings: One small polyp was removed Moderate diverticulosis seen in the entire colon Moderate hemorrhoids on retroflexed exam. Plan: Repeat Colonoscopy in 5 years if polyps are adenomatous and 10 year if polyps are hyperplastic. PATHOLOGY Addendum Addendum #1 Immunostains for H. pylori on B, C and D are positive. Additional level with AB/PAS on D is negative for intestinal metaplasia. Controls stain appropriately. Additional deeper levels on E show minimal hyperplastic changes; no adenomatous dysplasia. Electronically Signed By: Anum Antoine 03/31/24 8006 Diagnosis A. Gastric antrum, biopsy: Chronic gastritis with mild-moderate activity and superficial bacteria suspicious for H. pylori; negative for intestinal metaplasia and dysplasia. B. Gastric antrum, nodule, biopsy: Polypoid chronic gastritis with mild-moderate activity and superficial bacteria suspicious for H. pylori; negative for intestinal metaplasia and dysplasia. C. Gastric body, biopsy: Chronic gastritis with minimal activity and superficial bacteria suspicious for H. pylori; negative for intestinal metaplasia and dysplasia. D. Gastroesophageal junction, nodule, biopsy: Columnar mucosa with hyperplasia, mild chronic active inflammation and superficial bacteria suspicious for H. pylori; no intestinal metaplasia seen on initial levels; negative for dysplasia; no squamous mucosa present. E. Colon, transverse, polyp, biopsy: Colonic mucosa with prominent lymphoid aggregate and minimal hyperplastic changes on initial levels (see comment). Comment: (B, C and D): Immunostain for H. pylori pending; addendum to follow. (D): Additional level with AB/PAS stain pending; addendum to follow. (E): Additional deeper tissue levels pending; addendum to follow TODAY'S VISIT Patient is here today for follow-up and to discuss upper endoscopy and colonoscopy results. Patient denies any ill effects from the prep, anesthesia or procedure itself. Patient reports to be feeling well except for occasional still postprandial epigastric pain. Discuss upper endoscopy and colonoscopy results with patient. Currently she is taking omeprazole in the morning and famotidine at bedtime. Her symptoms are suppressed for the most part. H pylori positives on biopsy with chronic gastritis with minimal to mild activity seen in gastric antrum. Colonoscopy showed moderate diverticulosis throughout the whole colon and hyperplastic polyp. Patient reports that she is moving her bowels well without any issues. Denies dyspepsia, dysphagia or odynophagia. Denies melena, hematochezia. Patient denies any other GI concerning symptopms [facility] Medical History (Updated 04/17/24 @ 19:49 by Nimo Hoyos [facility]) Diverticulosis Helicobacter pylori (H. pylori) Migraine Fibromyalgia SLE (systemic lupus erythematosus) Vitamin D deficiency Obesity (BMI 30-39.9) Allergic rhinitis GERD (gastroesophageal reflux disease) Acquired hypothyroidism Sjogren syndrome with other organ involvement Long-term use of high-risk medication Positive JESUS (antinuclear antibody) Surgical History (Updated 04/08/24 @ 11:59 by JACOBY Smith) Hx of colonoscopy (~2019) Hx of cholecystectomy Hx of dilation and curettage Hx of tubal ligation History of left oophorectomy Hx of hysterectomy History of breast biopsy Family History Mother Cervical cancer HTN (hypertension) Diabetes Social History Housing: Apartment Alcohol intake: never Patient Tobacco Use Status: Never used Tobacco e-Cigarette/Vaping Use: Never Used Second Hand Smoke Exposure: No service: No Current occupational status: unemployed 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 Cognitive needs: No Hearing needs: No Vision needs: Yes (glasses) Review of Systems Const Denies weight gain and Denies weight loss ENT Reports no additional complaints, Denies dysphagia and Denies odynophagia Card Reports no additional complaints Resp Reports no additional complaints GI Reports abdominal pain (Epigastric), Denies belching, Denies melena, Reports bloating, Denies change in bowel habits, Denies dysphagia, Denies excessive flatus, Reports dyspepsia, Reports heartburn, Denies diarrhea, Denies loose stools, Denies nausea, Denies odynophagia and Denies vomiting Reports no additional complaints Musc Reports no additional complaints Neuro Reports no additional complaints Psych Reports no additional complaints Endo Reports no additional complaints Physical Exam Vital Signs: Last Vital Signs Pulse 76 04/08/24 11:59 BP 128/66 04/08/24 11:59 Pulse Ox 94 04/08/24 11:59 Oxygen Delivery Method Room Air 04/08/24 11:59 BMI result Body Mass Index 38.4 Const General: healthy appearing and no acute distress Nutritional Appearance: obese Orientation/consciousness: patient oriented x3 Eyes General: appearance normal, both eyes and all related structures Resp Effort & Inspection: normal respiratory effort, able to speak in complete sentences, no tracheal deviation and symmetric chest movement Auscultation: clear to auscultation bilaterally Cardio Rate: regular rate GI Inspection: Yes normal to inspection, No distended and Yes obesity Palpation (GI): Soft to palpation, not firm, nontender and No hepatosplenomegaly present Auscultation: normal bowel sounds General: Yes no CVA tenderness Back/Spine/Pelvis Back: no CVA tenderness Skin General skin exam: elasticity normal, turgor normal and dry skin Neuro General: patient oriented x3 Psych Appearance: grossly normal Mental Status: mental status grossly normal Assessment & Plan Assessment & Plan (1) Colon cancer screening: Code(s): Z12.11 - Encounter for screening for malignant neoplasm of colon Category: Medical (2) GERD (gastroesophageal reflux disease): Code(s): K21.9 - Gastro-esophageal reflux disease without esophagitis Category: Medical Qualifiers: Esophagitis presence: without esophagitis Qualified Code(s): K21.9 - Gastro-esophageal reflux disease without esophagitis (3) Constipation: Code(s): K59.00 - Constipation, unspecified Category: Medical Qualifiers: Constipation type: unspecified constipation type Qualified Code(s): K59.00 - Constipation, unspecified (4) Helicobacter pylori (H. pylori): Code(s): A04.8 - Other specified bacterial intestinal infections Category: Medical (5) Diverticulosis: Code(s): K57.90 - Diverticulosis of intestine, part unspecified, without perforation or abscess without bleeding Category: Medical Plan Treatment for H pylori with quadruple therapy. Patient will call our office if she will not be able to handle all of the medication. Encouraged her to complete all 2 weeks of treatment. Avoid dietary triggers and late night snacking. Staying upright for minimum 3 hours after meals discussed with patient. Increase fluid intake and activity to promote better bowel motility. Diverticulosis found. Patient was encouraged to increase fiber in her diet. Patient may take [id number] fiber with probiotics. Patient will return in 3 months and we will discuss going for retesting to ensure eradication of the bacteria. Patient is agreeable to this plan and verbalizes understanding of instructions. She was given the opportunity to ask questions and all questions answered. Thank you for allowing me to participate in her care Medications: New metronidazole 1,000 mg (2 x 500 mg) PO BID 56 tabs 0RF A04.8 - Other specified bacterial intestinal infections tetracycline 1,000 mg (2 x 500 mg) PO Q12H 56 caps 0RF A04.8 - Other specified bacterial intestinal infections ondansetron 4 mg PO Q8H PRN 20 tabs 0RF nausea and vomiting R11.0 - Nausea bismuth subsalicylate 2 tabs PO QID 112 tabs 0RF 14 days A04.8 - Other specified bacterial intestinal infections Changed From omeprazole 20 mg PO DAILY 90 caps 1RF To omeprazole 20 mg PO BID 60 caps 1RF Coding Level of Care Code Est Pt Level 4 (67512) Complex EM visit Add On G2211 Diagnoses Colon cancer screening Z12.11 Gastroesophageal reflux disease without esophagitis K21.9 Esophagitis presence: without esophagitis Constipation, unspecified constipation type K59.00 Constipation type: unspecified constipation type Helicobacter pylori (H. pylori) A04.8 Diverticulosis K57.90 Time Spent (min) 35 Comment 20 minutes spent with patient and additional 15 minutes spent reviewing her records
== END 2024-04-08 12:39 | disposition home or self-care (01) ==
PROVIDERS: PCP Internal Medicine; Visit Provider Nurse Practitioner Family
DX: K21.9 Gastro-esophageal reflux disease without esophagitis (principal); K59.00 Constipation, unspecified; A04.8 Other specified bacterial intestinal infections; K57.90 Diverticulosis of intestine, part unspecified, without perforation or abscess without bleeding
CPT/HCPCS: 99214; G2211

== ENCOUNTER → 2024-04-08 11:54 | Outpatient (BNVA) | payer OTHER, SELFPAY | PROVIDERS: PCP Internal Medicine; Visit Provider Nurse Practitioner Family | DX: Z12.11 Encounter for screening for malignant neoplasm of colon (principal); K21.9 Gastro-esophageal reflux disease without esophagitis; K59.00 Constipation, unspecified; K57.90 Diverticulosis of intestine, part unspecified, without perforation or abscess without bleeding; A04.8 Other specified bacterial intestinal infections | CPT/HCPCS: 99212 ==

== ENCOUNTER 2024-04-15 09:15 | Outpatient (REF) | payer OTHER, SELFPAY ==
[2024-04-15 09:37] LABS: MANUAL DIFF FLAG NO
[2024-04-15 09:41] LABS: Basophils Absolute Auto 0.1 X10*3/uL (0.0-0.2); Basophils Percent Auto 0.7 % (0-2); Eosinophils Absolute Auto 0.2 X10*3/uL (0.0-0.4); Eosinophils Percent Auto 2.8 % (0-4); Hematocrit 42.9 % (37.0-47.0); Hemoglobin 14.3 g/dl (12.0-16.0); Imm Gran Abs Auto 0.02 X10*3/uL (0.00-0.03); Imm Gran Pct Auto 0.3 % (0.0-0.4); Lymphocytes Absolute Auto 2.7 X10*3/uL (1.2-4.9); Lymphocytes Percent Auto 39.8 % (20-40); Mean Corpuscular HGB Conc 33.3 g/dl (31.0-35.0); Mean Corpuscular Hemoglobin 28.1 pg (27.0-33.0); Mean Corpuscular Volume 84.3 fL (80.0-98.0); Mean Platelet Volume 10.1 fL (9.4-12.3); Monocytes Absolute Auto 0.8 X10*3/uL (0.1-1.2); Monocytes Percent Auto 11.7 % (2-11); Neutrophils Percent Auto 44.7 % (45-73); Platelet Count 324 X10*3/uL (160-400); Red Blood Count 5.09 X10*6/uL (4.20-5.50); Red Cell Distribution Width 14.4 % (11.0-16.0); White Blood Count 6.8 X10*3/uL (4.8-10.8)
[2024-04-15 10:36] LABS: Albumin Level 3.7 g/dL (3.5-5.0); Alkaline Phosphatase 80 U/L (39-117); Anion Gap 8 (12-20); Aspartate Amino Transferase 34 U/L (5-31); Bilirubin Total 0.4 mg/dL (0.0-1.0); Blood Urea Nitrogen 10 mg/dL (9-16); Calcium 8.5 mg/dL (8.4-10.2); Carbon Dioxide 24 mmol/L (22-29); Chloride 112 mmol/L (96-108); Estimated Glomerular Filt Rate > 60; Glucose Random 108 mg/dL (60-115); Sodium 140 mmol/L (135-145); Total Protein 7.1 g/dL (6.5-8.0)
[2024-04-15 11:11] LABS: Alanine Aminotransferase 34 U/L (0-31)
== END 2024-04-15 09:16 | disposition home or self-care (01) ==
LOC: HO.LAB 09:15
PROVIDERS: PCP Internal Medicine; Visit Provider Student in an Organized Health Care Education/Training Program
DX: M32.9 Systemic lupus erythematosus, unspecified (principal)
CPT/HCPCS: 36415; 80053; 85025

== ENCOUNTER 2024-04-20 14:58 | Outpatient (AMB) | payer OTHER, SELFPAY ==
[2024-04-20 15:02] VITALS: BP 118/84; PULSE 72; O2SAT 97; BMI 38.6
--- NOTE | 2024-04-20 15:02 | MHC.PC.OV ---
Vital Signs 04/20/24 15:02 Height 5 ft 4 in Weight 225 lb BMI 38.6 BP 118/84 Blood Pressure Location Lt brachial Position Sitting Pulse 72 Pulse Source Pulse Oximeter Pulse Oximetry (%) 97 Oxygen Delivery Method Room Air Intake Visit Reasons: hypothyroidism, fibromyalgia Sanitary Chemist Required: No Accompanied by: Self / Same As Patient Allergies codeine Allergy (Unknown, Verified 04/20/24 15:42) Swelling, rash Medication List - Last Reconciled 04/20/24 by Yasir Otero MD bismuth subsalicylate 2 tabs PO QID 14 days cetirizine 10 mg PO DAILY cholecalciferol (vitamin D3) 50 mcg PO DAILY 90 days diclofenac sodium 1% (Arthritis Pain (diclofenac)) 2 grams topical QID PRN famotidine 20 mg PO BEDTIME fluticasone propionate 50 mcg/actuation (Flonase Allergy Relief) 1 spray intranasal DAILY gabapentin 600 mg (2 x 300 mg) PO BEDTIME hydroxychloroquine 300 mg (1.5 x 200 mg) PO DAILY levothyroxine 75 mcg PO DAILY lifitegrast 5% (Xiidra) 1 drp ophthalmic (eye) Q12H metronidazole 1,000 mg (2 x 500 mg) PO BID omeprazole 20 mg PO BID ondansetron 4 mg PO Q8H PRN sumatriptan succinate 50 mg PO .q8 PRN tetracycline 1,000 mg (2 x 500 mg) PO Q12H tizanidine 4 mg PO BEDTIME 30 days Tobacco use date assessed: 04/20/24 Dental Screening Dental Screen Date: 04/20/24 Did you have a dental visit in the last 12 months?: Yes Did you have a dental problem in the last 6 months where you did not have access to dental care?: No Was dental information given to patient?: Patient has dentist HPI hypothyroidism, fibromyalgia HPI Details Patient comes in today for her follow up visit States that she's had increased dry coughing for the past 2 weeks Relates that her cough is often worse at night; cough is mostly non-productive She denies any fever or sore throat; denies any headaches or dizziness Denies any chest pains, no increased shortness of breath No nausea/vomiting, no abdominal pain No change in bowel habits noted She had her follow-up labs done a few days ago - to discuss her results She had a screening colonoscopy done last month on 03/25/2024 - colonoscopy was normal and she was advised to get repeat colonoscopy in 10 years [facility] Medical History Diverticulosis Helicobacter pylori (H. pylori) Migraine Fibromyalgia SLE (systemic lupus erythematosus) Vitamin D deficiency Obesity (BMI 30-39.9) Allergic rhinitis GERD (gastroesophageal reflux disease) Acquired hypothyroidism Sjogren syndrome with other organ involvement Long-term use of high-risk medication Positive JESUS (antinuclear antibody) Surgical History (Updated 04/25/24 @ 00:07 by Yasir Otero MD) Hx of colonoscopy (~2019) Hx of cholecystectomy Hx of dilation and curettage Hx of tubal ligation History of left oophorectomy Hx of hysterectomy History of breast biopsy Family History Mother Cervical cancer HTN (hypertension) Diabetes Social History Housing: Apartment Alcohol intake: never Patient Tobacco Use Status: Never used Tobacco e-Cigarette/Vaping Use: Never Used Second Hand Smoke Exposure: No service: No Current occupational status: unemployed 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 1. Little interest or pleasure in doing things: not at all 2. Feeling down, depressed, or hopeless: not at all 3. Trouble falling or staying asleep, or sleeping too much: not at all 4. Feeling tired or having little energy: not at all 5. Poor appetite or overeating: not at all 6. Feeling bad about yourself - or that you are a failure or have let yourself or your family down: not at all 7. Trouble concentrating on things, such as reading the newspaper or watching television: not at all 8. Moving or speaking so slowly that other people could have noticed. Or the opposite - being so fidgety or restless that you have been moving around a lot more than usual: not at all 9. Thoughts that you would be better off or of hurting yourself in some way: not at all Total score: 0 Depression Screening Interpretation: Negative Depression Screening Done: Yes 87161 - PHQ-9 Billing: Yes Source: Developed by Drs. Hima Ferris, Kaci De La Cruz, Manas Thomas and colleagues, with an educational bridget from [employer] [facility]. Thrive Questionnaire Date Thrive assessed: 04/20/24 I am a: Patient What is your living situation today?: I have a steady place to live Within the past 12 months, did the food you bought not last and you didn't have the money to get more?: Never true Within the past 12 months, did you worry whether your food would run out before you got money to buy more?: Never true Do you have trouble paying for medicines?: No Do you have trouble getting transportation to medical appointments?: No Do you have trouble paying your heating and electricity bill?: No Do you have trouble taking care of your child, family member or friend?: No Do you have trouble with day-to-day activities such as bathing, preparing meals, shopping, managing finances, etc.?: No Are you currently unemployed and looking for a job?: No Are you interested in more education?: No Please select the resources that you would like help with: None Currently or been in a relationship where the following occur: No concerns reported THRIVE Score: 0 AUDIT C Alcohol Use Questionnaire (AUDIT-C) 1. How often do you have a drink containing alcohol?: Monthly or less 2. How many drinks containing alcohol do you have on a typical day when you are drinking?: 1 or 2 3. How often do you have six or more drinks on one occasion?: Never Total Score: 1 Score Reviewed/Action Taken: Yes GRAY-7 AMB Questionnaire GRAY-7 Date GRAY - 7 assessed: 04/20/24 Feeling nervous, anxious, or on edge: 2 = More than half the days Not being able to stop or control worryin = Nearly every day Worrying too much about different things: 3 = Nearly every day Trouble relaxin = More than half the days Being so restless that it is hard to sit still: 2 = More than half the days Becoming easily annoyed or irritable: 3 = Nearly every day Feeling afraid as if something awful might happen: 2 = More than half the days Total GRAY-7 score (0-4 normal; 5-9 mild; 10-14 moderate; 15-21 severe): 17 Source: Developed by Drs. Hima Ferris, Kaci De La Cruz, Manas Thomas and colleagues, with an educational bridget from [facility] [facility]. GRAY-7 Assessment Billing GRAY-7 Assessment Tool: GRAY-7 Assessment 63097 Review of Systems Const Denies chills, Denies fatigue, Denies fever(s) and Denies headache(s) ENT Denies dysphagia, Denies dizziness, Denies otalgia, Denies headache(s), Denies neck pain, Denies odynophagia and Denies sore throat Card Denies chest pain, Denies irregular heart rhythm, Denies palpitations and Denies dyspnea Resp Denies chest congestion, Reports cough (recurrent; non-productive; worse at night), Denies dyspnea and Denies wheezing GI Denies abdominal pain, Denies constipation, Denies dysphagia, Denies heartburn, Denies diarrhea, Denies nausea, Denies odynophagia and Denies vomiting Denies urinary frequency, Denies dysuria and Denies urinary urgency Musc Denies back pain, Reports arthralgias (on and off, involving multiple joints) and Denies neck pain Skin/Breast Denies rash Neuro Denies dizziness, Denies headache(s) and Denies paresthesias Psych Denies anxiety and Denies depression Endo Denies fatigue and Denies palpitations Cristóbal/Lymph Denies easy bruising Aller/Immun Denies wheezing Physical exam (Primary Care) Vital Signs: Last Vital Signs Pulse 72 04/20/24 15:02 BP 118/84 04/20/24 15:02 Pulse Ox 97 04/20/24 15:02 Oxygen Delivery Method Room Air 04/20/24 15:02 BMI result Body Mass Index 38.6 Tobacco/Smoking Status: Tobacco use Status Tobacco use date assessed 04/20/24 04/20/24 15:04 Patient Tobacco Use Status Never used Tobacco 04/20/24 15:04 e-Cigarette/Vaping Use Never Used 04/20/24 15:04 PHQ-9: PHQ-9 Score PHQ-9: Total score 0 04/20/24 15:44 Depression Screening Interpretation: Negative Thrive Assessment: Date of Thrive Assessment Date Thrive assessed 04/20/24 04/20/24 15:04 Currently or been in a relationship where the following occur: No concerns reported Const General: no acute distress and alert HENMT Ears: TM's normal bilaterally and EAC's normal Throat: Yes posterior oropharynx normal and Yes tonsils normal (no TP congestion) Neck Neck: Yes supple and No lymphadenopathy Thyroid: Thyroid normal Resp Auscultation: clear to auscultation bilaterally, no rales and no wheezes Cardio Rate: regular rate Rhythm: regular rhythm Heart sounds: no murmurs GI Palpation (GI): Soft to palpation and nontender Auscultation: normal bowel sounds General: Yes no CVA tenderness Back/Spine/Pelvis Back: no CVA tenderness Thoracic/Lumbar Spine: No lumbar spinal tenderness Skin Rashes: no rashes Extrem General: Yes no clubbing, cyanosis or edema Results Reviewed Results Reviewed: Laboratory Tests 04/15/24 09:35 WBC 6.8 Hgb 14.3 Hct 42.9 Plt Count 324 Sodium 140 Potassium 4.0 Creatinine 0.72 Estimated GFR > 60 Random Glucose 108 Calcium 8.5 D AST 34 H ALT 34 H Coding Level of Care Code Est Pt Level 4 (28225) Diagnoses SLE (systemic lupus erythematosus related syndrome) M32.9 Sjogren syndrome with inflammatory arthritis M35.05 Fibromyalgia M79.7 Migraine with aura and without status migrainosus, not intractable G43.109 Status migrainosus presence: without status migrainosus Intractability: not intractable Acquired hypothyroidism E03.9 Vitamin D deficiency E55.9 Gastroesophageal reflux disease without esophagitis K21.9 Esophagitis presence: without esophagitis Constipation, unspecified constipation type K59.00 Constipation type: unspecified constipation type Seasonal allergic rhinitis, unspecified trigger J30.2 Allergic rhinitis trigger: unspecified Allergic rhinitis seasonality: seasonal Obesity (BMI 30-39.9) E66.9 Additional Codes GRAY-7 Assessment Billing - GRAY-7 Assessment Tool: GRAY-7 Assessment 39818 ([id number]) PHQ-9 - 02254 - PHQ-9 Billing: Yes ([id number]) Assessment & Plan Assessment & Plan (1) SLE (systemic lupus erythematosus related syndrome): Comment: Onset 2016: Arthritis, facial rash, +++SSa +++SSb, +DsDNA hydroxychloroquine probably started in 2018, reduced to 300 mg daily 09/2023 Code(s): M32.9 - Systemic lupus erythematosus, unspecified Category: Medical Plan: Continue Hydroxychloroquine 400 mg QD Follow up with [facility] Rheumatology as scheduled Patient's eye exam done a few months ago came back normal - she continues to require annual eye exam routinely as she is on maintenance Tx with Hydroxychloroquine and an annual eye exam is recommended for patients on the Rx due to its potential ophthalmic toxicity/side effects (2) Sjogren syndrome with inflammatory arthritis: Code(s): M35.05 - Sjogren syndrome with inflammatory arthritis Category: Medical Plan: Continue Gabapentin 300 mg in AM and 600 mg Q HS, Nabumetone 500 mg BID and Diclofenac sodium 1% gel apply 2 gms QID PRN Continue Xiidra 5% apply to eye Q 12 hours She has been advised by rheumatology in the past that she appears to have a mix of SLE and Sjogren's syndrome with arthralgias and fibromyalgia but was seen at [facility] Rheumatology more recently and advised that her symptoms are mostly consistent with fibromyalgia/UCTD and she does not have much in terms of symptoms of any other inflammatory arthritis Follow up with rheumatology as scheduled (3) Fibromyalgia: Code(s): M79.7 - Fibromyalgia Category: Medical Plan: She has been advised that her symptoms are more consistent with fibromyalgia Continue Gabapentin 300 mg Q AM and 600 mg Q HS and Tizanidine 4 mg Q HS PRN (4) Migraine with aura: Comment: in her 30's Code(s): G43.109 - Migraine with aura, not intractable, without status migrainosus Category: Medical Qualifiers: Status migrainosus presence: without status migrainosus Intractability: not intractable Qualified Code(s): G43.109 - Migraine with aura, not intractable, without status migrainosus Plan: Reinforced avoidance of potential migraine triggers Continue Sumatriptan 50 mg PRN Follow up with neurology as scheduled (5) Acquired hypothyroidism: Code(s): E03.9 - Hypothyroidism, unspecified Category: Medical Plan: Results of her labs done back in September 2023 reviewed and discussed with patient - her TFTs remain normal on her recent labs Continue Levothyroxine 75 mcg QD Will recheck her TFTs again in 6 months for follow up (6) Vitamin D deficiency: Code(s): E55.9 - Vitamin D deficiency, unspecified Category: Medical Plan: Continue Vitamin D3 2000 units QD Her BMD done back in June 2023 came back normal (7) GERD (gastroesophageal reflux disease): Code(s): K21.9 - Gastro-esophageal reflux disease without esophagitis Category: Medical Qualifiers: Esophagitis presence: without esophagitis Qualified Code(s): K21.9 - Gastro-esophageal reflux disease without esophagitis Plan: Dietary restrictions reinforced Continue Famotidine 20 mg QD and Omeprazole 20 mg QD Advised again that if her symptoms persist despite her Rx, will need to refer her to GI for further evaluation and consideration for EGD (8) Constipation: Code(s): K59.00 - Constipation, unspecified Category: Medical Qualifiers: Constipation type: unspecified constipation type Qualified Code(s): K59.00 - Constipation, unspecified Plan: Patient is encouraged again on increased oral fluids and dietary fiber Continue Metamucil daily PRN and Miralax powder 17 gm QD (9) Allergic rhinitis: Code(s): J30.9 - Allergic rhinitis, unspecified Category: Medical Qualifiers: Allergic rhinitis trigger: unspecified Allergic rhinitis seasonality: seasonal Qualified Code(s): J30.2 - Other seasonal allergic rhinitis Plan: Contine Cetirizine 10 mg QD PRN and Fluticasone 50 mcg nasal spray QD PRN (10) Obesity (BMI 30-39.9): Code(s): E66.9 - Obesity, unspecified Category: Medical Plan: Reinforced diet/exercise as tolerated/lose weight Plan To return as scheduled in June 2024 for his annual physical examination Orders: Orders Lipid Panel 06/28/24 E78.00 - Pure hypercholesterolemia, unspecified, Z00.00 - Encounter for general adult medical examination without abnormal findings Comprehensive [place]. Panel Fast 06/28/24 E78.00 - Pure hypercholesterolemia, unspecified, Z00.00 - Encounter for general adult medical examination without abnormal findings Vitamin D 25-OH Total 06/28/24 E55.9 - Vitamin D deficiency, unspecified, Z00.00 - Encounter for general adult medical examination without abnormal findings Free T4 (Free Thyroxine) 06/28/24 E03.9 - Hypothyroidism, unspecified, Z00.00 - Encounter for general adult medical examination without abnormal findings Thyroid Stimulating Hormone 06/28/24 E03.9 - Hypothyroidism, unspecified, Z00.00 - Encounter for general adult medical examination without abnormal findings Complete Blood Count Auto Diff 06/28/24 D64.9 - Anemia, unspecified, Z00.00 - Encounter for general adult medical examination without abnormal findings UA CC w/rflx Micro + Cult 06/28/24 R30.0 - Dysuria, Z00.00 - Encounter for general adult medical examination without abnormal findings
== END 2024-04-20 15:54 | disposition home or self-care (01) ==
PROVIDERS: PCP Internal Medicine; Visit Provider Internal Medicine
DX: M32.9 Systemic lupus erythematosus, unspecified (principal); M35.05 Sjogren syndrome with inflammatory arthritis; E66.9 Obesity, unspecified; Z68.38 Body mass index [BMI] 38.0-38.9, adult; M79.7 Fibromyalgia; G43.109 Migraine with aura, not intractable, without status migrainosus; E03.9 Hypothyroidism, unspecified; E55.9 Vitamin D deficiency, unspecified; K21.9 Gastro-esophageal reflux disease without esophagitis; K59.00 Constipation, unspecified; J30.2 Other seasonal allergic rhinitis

== ENCOUNTER → 2024-04-20 14:58 | Outpatient (BNVA) | payer OTHER, SELFPAY | PROVIDERS: PCP Internal Medicine; Visit Provider Internal Medicine | DX: M32.9 Systemic lupus erythematosus, unspecified (principal); M79.7 Fibromyalgia; G43.109 Migraine with aura, not intractable, without status migrainosus; M35.05 Sjogren syndrome with inflammatory arthritis; E55.9 Vitamin D deficiency, unspecified; K21.9 Gastro-esophageal reflux disease without esophagitis; K59.00 Constipation, unspecified; J30.2 Other seasonal allergic rhinitis; E66.9 Obesity, unspecified; E03.9 Hypothyroidism, unspecified | CPT/HCPCS: 96127; 99212 ==

== ENCOUNTER 2024-07-28 09:57 | Outpatient (AMB) | payer MEDICARE, SELFPAY ==
--- NOTE | 2024-07-28 10:04 | MHC.OFFVIS ---
Vital Signs 07/28/24 10:10 Height 5 ft 4 in Weight 228 lb 2.855 oz BMI 39.2 BP 152/100 H Blood Pressure Location Lt brachial Position Sitting Respiration 16 Pulse 77 Pulse Source Pulse Oximeter Pulse Oximetry (%) 97 Oxygen Delivery Method Room Air Intake Visit Reasons: SLE Intake Note: Patient presents for SLE follow up. Allergies codeine Allergy (Unknown, Verified 07/28/24 10:08) Swelling, rash HPI HPI SLE: Details: She is having pain in arms with numbness in both hands. Hands are swollen sometimes. Nocturnal paresthesia. Denies fevers, dyspnea, pleurisy +dry mouth on biotene mouthwash and toothpaste. Pilocarpine caused excessive saliva production. +dry eyes on xidra. +urinary frequency for 2 months. She had an oral ulcer 2 weeks ago. She is experiencing pain in her left elbow. Pain with activity. In the past she had cortisone injection with relief for up to 5-6 months. She has failed using elbow support band and PT in the past. [facility] Medical History (Updated 07/28/24 @ 12:03 by Vahe Miles MD) Diverticulosis Helicobacter pylori (H. pylori) Migraine Fibromyalgia SLE (systemic lupus erythematosus) Vitamin D deficiency Obesity (BMI 30-39.9) Allergic rhinitis GERD (gastroesophageal reflux disease) Acquired hypothyroidism Sjogren syndrome with other organ involvement Long-term use of high-risk medication Positive JESUS (antinuclear antibody) Surgical History Hx of colonoscopy (~2019) Hx of cholecystectomy Hx of dilation and curettage Hx of tubal ligation History of left oophorectomy Hx of hysterectomy History of breast biopsy Family History Mother Cervical cancer HTN (hypertension) Diabetes Social History Housing: Apartment Alcohol intake: never Patient Tobacco Use Status: Never used Tobacco e-Cigarette/Vaping Use: Never Used Second Hand Smoke Exposure: No service: No Current occupational status: unemployed 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 Good respiratory effort Skin: No lesions seen MSK: Patient is unable to perform Phalen's test due to pain in arms. No synovitis. Tender to palpate left lateral epicondyle with pain with resisted wrist extension. Normal elbow range of motion. Tender bilateral shoulders. Shoulder abduction 100 degrees bilateral with full internal rotation but limited external rotation due to pain. Knee flexion bilateral 45 degrees limited due to pain. No ankle tenderness. Office Procedures AMB Joint Injection/Aspiration Joint Injection/Aspiration Details: Left lateral epicondyle Prep: site was prepped using aseptic technique Injected: 20 mg of, Kenalog, with 0.5 mL of and 1% plain lidocaine Procedure: The patient tolerated the procedure well. Postprocedure protocol was discussed with patient. Coding 78509 - Epicondyle Procedure code (CPT) selection complete Office Meds lidocaine (PF) 10 mg/mL (1 %) injection solution Performing Provider: Vahe Miles MD Performing Location: [facility] [place] [facility] Administered by: Vahe Miles MD on 07/28/24 11:59 Dose Route Admin Location Dispensed Lot Number Expiration Date [facility] Mental Health Case Manager 5 mg Infiltration 2 mL [id number] [facility] Kenalog 40 mg/mL suspension for injection Performing Provider: Vahe Miles MD Performing Location: [facility] [place] [facility] Administered by: Vahe Miles MD on 07/28/24 11:59 Dose Route Admin Location Dispensed Lot Number Expiration Date [facility] Mental Health Case Manager 20 mg Tendon Sheath Inj. 1 mL [id number] [facility] Assessment & Plan Assessment & Plan (1) SLE (systemic lupus erythematosus related syndrome): Comment: Controlled on hydroxychloroquine. Serologically double-stranded DNA is improving over time. She has reduced range of motion of her shoulders and her knees. There may be underlying joint pathology contributing. We discussed importance of regular exercise and stretching program. Rheumatology history: Onset 2016: + SSA, SSB, positive double-stranded DNA. Presenting with inflammatory arthritis, facial rash, sicca symptoms. Hydroxychloroquine probably started in 2018, reduced to 300 mg daily 09/2023. She has secondary Sjogren syndrome. Code(s): M32.9 - Systemic lupus erythematosus, unspecified Category: Medical Plan: Labs to assess disease and drug monitoring ordered Continue hydroxychloroquine 300 mg daily. Last eye exam April 2023 OCT. I requested that she schedule yearly exams with OCT and visual field test for hydroxychloroquine surveillance. I recommended a home exercise program daily. If range of motion does not improve next visit, I will pursue imaging of shoulders and knees Return to clinic in 3 months (2) Sjogren syndrome with inflammatory arthritis: Comment: Sicca symptoms are uncontrolled. She is on Xiidra for dry eyes and uses Biotene mouthwash and toothpaste. In the past pilocarpine t.i.d. caused excessive saliva production at night. When frequency was reduced to b.i.d. dry mouth worsened. Code(s): M35.05 - Sjogren syndrome with inflammatory arthritis Category: Medical Plan: I recommend that she contact Ophthalmology for management of dry eyes For dry mouth, she will try other Biotene products OTC such as lozenges and gum. She will also try XyliMelts. Return to clinic in 3 months (3) Urinary frequency: Comment: May be related to increase water intake due to uncontrolled dry mouth. I will rule out UTI with urine studies. Code(s): R35.0 - Frequency of micturition Category: Medical Plan: UA and urine culture ordered (4) Paresthesia of hand, bilateral: Comment: Concern for carpal tunnel syndrome Code(s): R20.2 - Paresthesia of skin Category: Medical Plan: EMG ordered upper extremities bilateral Bilateral Cock-up wrist brace prescription prescribed to wear at night Return to clinic in 3 months (5) Left lateral epicondylitis: Comment: Failed PT and elbow support band. She had benefit with cortisone injection in the past. Code(s): M77.12 - Lateral epicondylitis, left elbow Category: Medical Plan: Patient received left lateral epicondyle cortisone injection Work note given to patient to excuse her from work until Emiliano Return to clinic in 3 months Orders: Orders Complete Blood Count Auto Diff Today Z79.60 - terminal worker (current) use of unspecified immunomodulators and immunosuppressants Anti DNA DS Antibody Today M32.9 - Systemic lupus erythematosus, unspecified, M35.05 - Sjogren syndrome with inflammatory arthritis Complement C4 Today M35.05 - Sjogren syndrome with inflammatory arthritis Complement C3 Today M32.9 - Systemic lupus erythematosus, unspecified UA w Microscopic Today M35.05 - Sjogren syndrome with inflammatory arthritis Urine Culture Today R35.0 - Frequency of micturition Hepatitis B,C Profile Today M35.05 - Sjogren syndrome with inflammatory arthritis T Spot TB Today M35.05 - Sjogren syndrome with inflammatory arthritis Alanine Aminotransferase Today Z79.60 - senior living (current) use of unspecified immunomodulators and immunosuppressants Creatinine Today Z79.60 - senior living (current) use of unspecified immunomodulators and immunosuppressants Aspartate Amino Transferase Today Z79.60 - senior living (current) use of unspecified immunomodulators and immunosuppressants Erythrocyte Sedimentation Rate Today Z79.899 - Other chcf (current) drug therapy C Reactive Protein Today Z79.899 - Other oysterman (current) drug therapy NE electromyogram (EMG) Today R20.2 - Paresthesia of skin NE nerve conduction velocity Today R20.2 - Paresthesia of skin AMB Joint Injection/Aspiration Today M77.12 - Lateral epicondylitis, left elbow Medications: New arm brace (Wrist Brace) As directed Bilateral cockup wrist braces Dx: carpal tunnel syndrome 2 ea 0RF lidocaine (PF) 5 mg (0.5 mL) Infiltration ONCE 0.5 mL 0RF M77.12 - Lateral epicondylitis, left elbow Kenalog (triamcinolone acetonide) 20 mg (0.5 mL) Tendon Sheath Inj. ONCE 0.5 mL 0RF NS M77.12 - Lateral epicondylitis, left elbow Changed From hydroxychloroquine 300 mg (1.5 x 200 mg) PO DAILY 135 tabs 1RF M32.9 - Systemic lupus erythematosus, unspecified To hydroxychloroquine 300 mg (1.5 x 200 mg) PO DAILY 90 days 135 tabs 1RF M32.9 - Systemic lupus erythematosus, unspecified Coding Level of Care Code Est Pt Level 5 (07370) Complex EM visit Add On G2211 Diagnoses SLE (systemic lupus erythematosus related syndrome) M32.9 Sjogren syndrome with inflammatory arthritis M35.05 Urinary frequency R35.0 Paresthesia of hand, bilateral R20.2 Left lateral epicondylitis M77.12 CPT Codes Coding - Joint 2: 19087 - Epicondyle ([id number]) Time Spent (min) 45
[2024-07-28 10:10] VITALS: BP 152/100; PULSE 77; RESP 16; O2SAT 97; BMI 39.2
== END 2024-07-28 11:06 | disposition home or self-care (01) ==
PROVIDERS: PCP Internal Medicine; Visit Provider Internal Medicine Rheumatology
DX: M32.9 Systemic lupus erythematosus, unspecified (principal); M35.05 Sjogren syndrome with inflammatory arthritis; R35.0 Frequency of micturition; R20.2 Paresthesia of skin; M77.12 Lateral epicondylitis, left elbow
CPT/HCPCS: 20551; 99215

== ENCOUNTER 2024-07-28 09:57 | Outpatient (REF) | payer BC, SELFPAY ==
[2024-07-28 17:40] LABS: Appearance Urine Cloudy; Color Urine DK YELLOW; Glucose Urine UA Negative (Negative); Leukocyte Esterase Urine Negative (Negative); Nitrite Urine Negative (Negative); Specific Gravity - Urine >= 1.030 (1.005-1.025); Urine Blood Negative (Negative); Urine Ketones Negative (Negative); Urine Protein Negative (Neg-Trace)
[2024-07-28 17:49] LABS: MANUAL DIFF FLAG NO
[2024-07-28 17:52] LABS: Bacteria Urine Trace (None Seen); RBC Urine 0-2 /HPF (0-2); WBC Urine 0-5 /HPF (0-5)
[2024-07-28 17:53] LABS: Calcium Oxalate Crystals Urine Present; Hyaline Casts Urine 0-2 /LPF (0-2); Other Casts Urine Present
[2024-07-28 17:57] LABS: Basophils Absolute Auto 0.1 X10*3/uL (0.0-0.2); Basophils Percent Auto 0.8 % (0-2); Eosinophils Absolute Auto 0.2 X10*3/uL (0.0-0.4); Eosinophils Percent Auto 2.1 % (0-4); Hematocrit 43.4 % (37.0-47.0); Hemoglobin 14.5 g/dl (12.0-16.0); Imm Gran Abs Auto 0.02 X10*3/uL (0.00-0.03); Imm Gran Pct Auto 0.3 % (0.0-0.4); Lymphocytes Absolute Auto 2.8 X10*3/uL (1.2-4.9); Lymphocytes Percent Auto 38.3 % (20-40); Mean Corpuscular HGB Conc 33.4 g/dl (31.0-35.0); Mean Corpuscular Hemoglobin 28.7 pg (27.0-33.0); Mean Corpuscular Volume 85.9 fL (80.0-98.0); Mean Platelet Volume 10.8 fL (9.4-12.3); Monocytes Absolute Auto 0.9 X10*3/uL (0.1-1.2); Monocytes Percent Auto 11.9 % (2-11); Neutrophils Absolute Auto 3.4 x10*3/uL (2.0-8.3); Neutrophils Percent Auto 46.6 % (45-73); Platelet Count 303 X10*3/uL (160-400); Red Blood Count 5.05 X10*6/uL (4.20-5.50); Red Cell Distribution Width 14.8 % (11.0-16.0); White Blood Count 7.3 X10*3/uL (4.8-10.8)
[2024-07-28 18:05] LABS: Alanine Aminotransferase 37 U/L (0-31); Aspartate Amino Transferase 35 U/L (5-31); C Reactive Protein 0.47 mg/dL (< or = 0.50); Estimated Glomerular Filt Rate > 60
[2024-07-28 18:50] LABS: Erythrocyte Sedimentation Rate 7 MM/HR (0-20)
[2024-07-29 08:15] LABS: HBS Num1 0.72 mIU/mL (0-7.99); HBc Num1 0.16 S/CO (0.00-0.79); HBsAGNum1 0.39 S/CO (0.00-0.99); Hepatitis B Core Antibody Nonreactive (Nonreactive); Hepatitis B Surface Antigen Negative (Negative); ~HepC Num1 0.22 S/CO (0.00-0.79); ~Hepatitis B Surface Antibody NONREACTIVE (Nonreactive); ~Hepatitis C Antibody Nonreactive (Nonreactive)
[2024-08-01 11:03] LABS: Complement C3 152 mg/dL (83-193)
[2024-08-01 22:07] LABS: Anti DNA DS Antibody 7 IU/mL
== END 2024-07-28 09:58 | disposition home or self-care (01) ==
LOC: HO.HKASLDS 09:57
PROVIDERS: PCP Internal Medicine; Visit Provider Internal Medicine Rheumatology
DX: M35.05 Sjogren syndrome with inflammatory arthritis (principal); Z79.60 Long term (current) use of unspecified immunomodulators and immunosuppressants; Z79.899 Other long term (current) drug therapy; M32.9 Systemic lupus erythematosus, unspecified; R35.0 Frequency of micturition; R20.2 Paresthesia of skin; M77.12 Lateral epicondylitis, left elbow
CPT/HCPCS: 20551; 36415; 81001; 82565; 84450; 84460; 85025; 85652; 86140; 86160; 86225; 86704; 86706; 86803; 87086; 87340; 99212; J2003; J3300

== ENCOUNTER 2024-07-29 07:08 | Outpatient (REF) | payer BC, SELFPAY ==
[2024-07-29 07:38] LABS: MANUAL DIFF FLAG NO
[2024-07-29 07:54] LABS: Basophils Absolute Auto 0.1 X10*3/uL (0.0-0.2); Basophils Percent Auto 0.7 % (0-2); Eosinophils Absolute Auto 0.1 X10*3/uL (0.0-0.4); Eosinophils Percent Auto 1.6 % (0-4); Hematocrit 43.7 % (37.0-47.0); Hemoglobin 14.4 g/dl (12.0-16.0); Imm Gran Abs Auto 0.03 X10*3/uL (0.00-0.03); Imm Gran Pct Auto 0.4 % (0.0-0.4); Lymphocytes Absolute Auto 2.9 X10*3/uL (1.2-4.9); Lymphocytes Percent Auto 35.3 % (20-40); Mean Corpuscular Hemoglobin 28.3 pg (27.0-33.0); Mean Platelet Volume 10.1 fL (9.4-12.3); Monocytes Absolute Auto 0.7 X10*3/uL (0.1-1.2); Monocytes Percent Auto 8.9 % (2-11); Neutrophils Absolute Auto 4.3 x10*3/uL (2.0-8.3); Neutrophils Percent Auto 53.1 % (45-73); Platelet Count 345 X10*3/uL (160-400); Red Blood Count 5.08 X10*6/uL (4.20-5.50); Red Cell Distribution Width 14.8 % (11.0-16.0); White Blood Count 8.1 X10*3/uL (4.8-10.8)
[2024-07-29 07:56] LABS: Appearance Urine Clear; Color Urine Yellow; Glucose Urine UA Negative (Negative); Leukocyte Esterase Urine Negative (Negative); Nitrite Urine Negative (Negative); Specific Gravity - Urine 1.025 (1.005-1.025); Urine Blood Negative (Negative); Urine Ketones Negative (Negative); Urine Protein Negative (Neg-Trace)
[2024-07-29 08:01] LABS: Bacteria Urine None Seen (None Seen); Hyaline Casts Urine 0-2 /LPF (0-2); RBC Urine 0-2 /HPF (0-2); Squamous Epithelial Cell Urine 0-2 /HPF (0-2); WBC Urine 0-5 /HPF (0-5)
[2024-07-29 08:24] LABS: Creatinine Urine 161.05 mg/dL; Total Protein Urine Random < 7 mg/dL (<12)
[2024-07-29 08:30] LABS: Alanine Aminotransferase 36 U/L (0-31); Albumin Level 4.1 g/dL (3.5-5.0); Alkaline Phosphatase 81 U/L (39-117); Anion Gap 14 (12-20); Aspartate Amino Transferase 30 U/L (5-31); Bilirubin Total 0.3 mg/dL (0.0-1.0); Blood Urea Nitrogen 12 mg/dL (9-16); C Reactive Protein 0.46 mg/dL (< or = 0.50); Calcium 9.4 mg/dL (8.4-10.2); Carbon Dioxide 25 mmol/L (22-29); Chloride 108 mmol/L (96-108); Cholesterol 216 mg/dL (<200); Estimated Glomerular Filt Rate > 60; Glucose Fasting 114 mg/dL (60-99); Glucose Random 114 mg/dL (60-115); HDL Cholesterol 43 mg/dL (>40); LDL Cholesterol Calculated 148 mg/dL (<100); Potassium 4.5 mmol/L (3.3-5.1); Sodium 142 mmol/L (135-145); Total Protein 7.6 g/dL (6.5-8.0); Triglycerides 128 mg/dL (<150)
[2024-07-29 08:33] LABS: Erythrocyte Sedimentation Rate 10 MM/HR (0-20)
[2024-07-29 08:54] LABS: Free T4 (Free Thyroxine) 0.46 ng/dL (0.71-1.85); Thyroid Stimulating Hormone 43.79 uIU/mL (0.32-4.0)
[2024-08-01 01:08] LABS: TS Negative Control Passed; TS Panel A 0; TS Panel B 0; TS Positive Control Passed; TSpotTB Negative (Negative)
[2024-08-01 11:03] LABS: Complement C3 165 mg/dL (83-193)
[2024-08-01 22:07] LABS: Anti DNA DS Antibody 9 IU/mL
[2024-08-04 08:39] LABS: DNAds, Crithidia Antibody Negative (Negative)
== END 2024-07-29 07:09 | disposition home or self-care (01) ==
LOC: HO.LAB 07:08
PROVIDERS: Absent Provider Student in an Organized Health Care Education/Training Program; PCP Internal Medicine; Referring Provider Internal Medicine Rheumatology; Visit Provider Internal Medicine
DX: E55.9 Vitamin D deficiency, unspecified (principal); Z00.00 Encounter for general adult medical examination without abnormal findings; D64.9 Anemia, unspecified; R30.0 Dysuria; E78.00 Pure hypercholesterolemia, unspecified; Z79.60 Long term (current) use of unspecified immunomodulators and immunosuppressants; E03.9 Hypothyroidism, unspecified; M35.05 Sjogren syndrome with inflammatory arthritis
CPT/HCPCS: 36415; 80053; 80061; 81001; 81003; 82306; 82570; 84156; 84439; 84443; 85025; 85652; 86140; 86160; 86225; 86255; 86481

== ENCOUNTER 2024-09-03 10:05 | Outpatient (REF) | payer BC, SELFPAY | END 2024-09-03 10:06 | disposition home or self-care (01) | LOC: HO.MAMMO 10:05 | PROVIDERS: PCP Internal Medicine; Visit Provider Internal Medicine | DX: Z12.31 Encounter for screening mammogram for malignant neoplasm of breast (principal) | CPT/HCPCS: 77063; 77067 ==

== ENCOUNTER → 2024-09-03 10:30 | Outpatient (BNV) | payer BC, SELFPAY | PROVIDERS: PCP Internal Medicine; Visit Provider Internal Medicine | DX: Z12.31 Encounter for screening mammogram for malignant neoplasm of breast (principal) | CPT/HCPCS: 77063; 77067 ==

== ENCOUNTER 2024-09-27 08:07 | Outpatient (REF) | payer BC, SELFPAY ==
--- NOTE | 2024-09-27 08:09 | EMG_ITS ---
FINDINGS: Bilateral median and ulnar motor and sensory studies were performed. Bilateral radial sensory study was performed, and bilateral median and lateral antecubital brachial sensory studies were performed, and paraspinal muscles were tested with a needle. IMPRESSION: This study did not reveal any significant abnormality to suggest entrapment neuropathy or radiculopathy. Please see the attached neurophysiology report for detail MD MARLENY Cadena/MODL / [id number] MTDD
== END 2024-09-27 08:08 | disposition home or self-care (01) ==
LOC: HO.NEURO 08:07
PROVIDERS: PCP Internal Medicine; Visit Provider Internal Medicine Rheumatology
DX: R20.2 Paresthesia of skin (principal)
CPT/HCPCS: 95886; 95913

== ENCOUNTER → 2024-09-27 08:09 | Outpatient (BNV) | payer BC, SELFPAY | PROVIDERS: PCP Internal Medicine; Visit Provider Psychiatry & Neurology Neurology | DX: M79.641 Pain in right hand (principal); M79.642 Pain in left hand | CPT/HCPCS: 95886; 95913 ==

== ENCOUNTER 2024-10-04 09:07 | Outpatient (AMB) | payer BC, SELFPAY ==
--- NOTE | 2024-10-04 09:15 | A.OFFVIS_ITS ---
Vital Signs 10/04/24 09:21 Height 5 ft 4 in Weight 226 lb BMI 38.8 BP 122/70 Blood Pressure Location Rt brachial Position Sitting Pulse 74 Pulse Source Pulse Oximeter Pulse Oximetry (%) 93 Oxygen Delivery Method Room Air Intake Visit Reasons: Gerd Follow up r/s 07/08/24 Intake Note: Est pt for mgmt of GERD, H-pylori CC; C.O. difficulty with her abx treatment. Pt states that she had finished all but two days of her abx course. However, despite this, she states that her overall condition has greatly improved. Avionics Installer Required: No Accompanied by: Self / Same As Patient Allergies codeine Allergy (Unknown, Verified 10/04/24 09:15) Swelling, rash HPI HPI Gerd Follow up r/s 07/08/24: Details: LAST VISIT: Colon cancer screening GERD (gastroesophageal reflux disease) Constipation Helicobacter pylori (H. pylori) Diverticulosis Plan Treatment for H pylori with quadruple therapy. Patient will call our office if she will not be able to handle all of the medication. Encouraged her to complete all 2 weeks of treatment. Avoid dietary triggers and late night snacking. Staying upright for minimum 3 hours after meals discussed with patient. Increase fluid intake and activity to promote better bowel motility. Diverticulosis found. Patient was encouraged to increase fiber in her diet. Patient may take mbif-mad-ubizaju fiber with probiotics. Patient will return in 3 months and we will discuss going for retesting to ensure eradication of the bacteria. Patient is agreeable to this plan and verbalizes understanding of instructions. She was given the opportunity to ask questions and all questions answered. ? Thank you for allowing me to participate in her care New metronidazole 1,000 mg (2 x 500 mg) PO BID 56 tabs 0RF A04.8 tetracycline 1,000 mg (2 x 500 mg) PO Q12H 56 caps 0RF A04.8 ondansetron 4 mg PO Q8H PRN 20 tabs 0RF nausea and vomiting R11.0 bismuth subsalicylate 2 tabs PO QID 112 tabs 0RF 14 days A04.8 Changed Changed From omeprazole 20 mg PO DAILY 90 caps 1RF Changed To omeprazole 20 mg PO BID 60 caps 1RF TODAY'S VISIT Patient is here today for follow-up. Patient reports that she has been doing fairly well since last visit. Patient reports that she was unable to finish all of her antibiotics. Patient reports that the last 2 days she was unable to tolerate any more of the metronidazole. Patient reports that her symptoms of acid reflux have suppressed. She is currently taking omeprazole 20 mg twice a day. Denies dyspepsia, dysphagia or odynophagia. Denies any nausea or vomiting. Denies any GI concerning symptoms. [facility] Medical History Diverticulosis Helicobacter pylori (H. pylori) Migraine Fibromyalgia SLE (systemic lupus erythematosus) Vitamin D deficiency Obesity (BMI 30-39.9) Allergic rhinitis GERD (gastroesophageal reflux disease) Acquired hypothyroidism Sjogren syndrome with other organ involvement Long-term use of high-risk medication Positive JESUS (antinuclear antibody) Surgical History Hx of colonoscopy (~2019) Hx of cholecystectomy Hx of dilation and curettage Hx of tubal ligation History of left oophorectomy Hx of hysterectomy History of breast biopsy Family History Mother Cervical cancer HTN (hypertension) Diabetes Social History Housing: Apartment Alcohol intake: never Patient Tobacco Use Status: Never used Tobacco e-Cigarette/Vaping Use: Never Used Second Hand Smoke Exposure: No service: No Current occupational status: unemployed 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 Cognitive needs: No Hearing needs: No Vision needs: Yes (glasses) Review of Systems Const Denies weight gain and Denies weight loss ENT Reports no additional complaints, Denies dysphagia and Denies odynophagia Card Reports no additional complaints Resp Reports no additional complaints GI Reports abdominal pain (Epigastric), Denies belching, Denies melena, Reports bloating, Denies change in bowel habits, Denies dysphagia, Denies excessive flatus, Reports dyspepsia, Reports heartburn, Denies diarrhea, Denies loose stools, Denies nausea, Denies odynophagia and Denies vomiting Reports no additional complaints Musc Reports no additional complaints Neuro Reports no additional complaints Psych Reports no additional complaints Endo Reports no additional complaints Physical Exam Vital Signs: Last Vital Signs Pulse 74 10/04/24 09:21 BP 122/70 10/04/24 09:21 Pulse Ox 93 10/04/24 09:21 Oxygen Delivery Method Room Air 10/04/24 09:21 BMI result Body Mass Index 38.8 Const General: healthy appearing and no acute distress Nutritional Appearance: obese Orientation/consciousness: patient oriented x3 Eyes General: appearance normal, both eyes and all related structures Resp Effort & Inspection: normal respiratory effort, able to speak in complete sentences, no tracheal deviation and symmetric chest movement Auscultation: clear to auscultation bilaterally Cardio Rate: regular rate GI Inspection: Yes normal to inspection, No distended and Yes obesity Palpation (GI): Soft to palpation, not firm, nontender and No hepatosplenomegaly present Auscultation: normal bowel sounds General: Yes no CVA tenderness Back/Spine/Pelvis Back: no CVA tenderness Skin General skin exam: elasticity normal, turgor normal and dry skin Neuro General: patient oriented x3 Psych Appearance: grossly normal Mental Status: mental status grossly normal Assessment & Plan Assessment & Plan (1) Acid reflux: Code(s): K21.9 - Gastro-esophageal reflux disease without esophagitis Category: Medical Qualifiers: Esophagitis presence: esophagitis presence not specified Qualified Code(s): K21.9 - Gastro-esophageal reflux disease without esophagitis (2) GERD (gastroesophageal reflux disease): Code(s): K21.9 - Gastro-esophageal reflux disease without esophagitis Category: Medical Qualifiers: Esophagitis presence: without esophagitis Qualified Code(s): K21.9 - Gastro-esophageal reflux disease without esophagitis (3) Constipation: Code(s): K59.00 - Constipation, unspecified Category: Medical Qualifiers: Constipation type: unspecified constipation type Qualified Code(s): K59.00 - Constipation, unspecified (4) Diverticulosis: Code(s): K57.90 - Diverticulosis of intestine, part unspecified, without perforation or abscess without bleeding Category: Medical Plan Will change PPI to once a day. Avoid dietary triggers and late night snacking. Staying upright for minimum 3 hours after meals discussed with patient. Patient will hold PPI for 2 weeks and restart after H pylori breath test. May take famotidine as needed in the meantime. Patient will follow-up in 2-3 months, sooner on as needed basis. She is agreeable to this plan and verbalizes understanding of instructions. She was given the opportunity to ask questions and all questions answered. Thank you for allowing me to participate in her care Orders: Orders H Pylori Breath Test Today K21.9 - Gastro-esophageal reflux disease without esophagitis Medications: Changed From omeprazole 20 mg PO BID 90 days 180 caps 1RF To omeprazole 20 mg PO DAILY 90 caps 1RF 90 days Coding Level of Care Code Est Pt Level 4 (41137) Complex EM visit Add On G2211 Diagnoses Gastroesophageal reflux disease, unspecified whether esophagitis present K21.9 Esophagitis presence: esophagitis presence not specified Constipation, unspecified constipation type K59.00 Constipation type: unspecified constipation type Diverticulosis K57.90 Time Spent (min) 35 Comment 25 minutes spent with patient and additional 10 minutes spent reviewing her records
[2024-10-04 09:21] VITALS: BP 122/70; PULSE 74; O2SAT 93; BMI 38.8
== END 2024-10-04 09:43 | disposition home or self-care (01) ==
LOC: HO.HGI 09:10
PROVIDERS: PCP Internal Medicine; Visit Provider Nurse Practitioner Family
DX: K21.9 Gastro-esophageal reflux disease without esophagitis (principal); K59.00 Constipation, unspecified; K57.90 Diverticulosis of intestine, part unspecified, without perforation or abscess without bleeding
CPT/HCPCS: 99214

== ENCOUNTER 2024-10-19 08:11 | Outpatient (AMB) | payer BC, SELFPAY ==
--- NOTE | 2024-10-19 08:36 | AM.OFFVISNUR ---
Intake Visit Reasons: H. Pylori B. Test Allergies codeine Allergy (Unknown, Verified 10/04/24 09:15) Swelling, rash Nursing Note Patient presents for collection of H Pylori breath test. Patient has been fasting for 1 hour (nothing to eat, drink, no chewing gum or smoking) has not taken any antacid medication for at least 2 weeks and has no allergies to artificial sweeteners.?? Assessment & Plan Assessment & Plan (1) GERD (gastroesophageal reflux disease): Code(s): K21.9 - Gastro-esophageal reflux disease without esophagitis Category: Medical Qualifiers: Esophagitis presence: without esophagitis Qualified Code(s): K21.9 - Gastro-esophageal reflux disease without esophagitis (2) Helicobacter pylori (H. pylori): Code(s): A04.8 - Other specified bacterial intestinal infections Category: Medical (3) Acid reflux: Code(s): K21.9 - Gastro-esophageal reflux disease without esophagitis Category: Medical Qualifiers: Esophagitis presence: esophagitis presence not specified Qualified Code(s): K21.9 - Gastro-esophageal reflux disease without esophagitis Plan Patient presents for collection of H Pylori breath test. Patient has been fasting for 1 hour (nothing to eat, drink, no chewing gum or smoking) has not taken any antacid medication for at least 2 weeks and has no allergies to artificial sweeteners.???This test checks for an overgrowth of bacteria in your stomach. We all have bacteria but some may have more than others. It is treatable. if the test comes back negative there is nothing else to do. If the test result is positive we will treat you with 2 antibiotics and a medication to decrease the acid in your stomach (PPI) for 2 weeks. Two weeks after you have completed the treatment we will retest you to make sure the overgrowth has resolved. Patient Instructions: Process for specimen collection and reason for testing was explained to the patient. Specimen collection. Patient instructed to take a deep breath and then exhale into the blue bag, filling it up as much as possible. Patient instructed to drink a mixture of water and the artificial sweetener with a straw. A 15 minute wait period was observed. Patient instructed to take a deep breath and then exhale into the pink bag, filling it up as much as possible.? Coding Level of Care Code Established Pt Est Pt Level 1 (80131) Patient Type Established Medical Decision Making Straight Forward Diagnoses Gastroesophageal reflux disease without esophagitis K21.9 Esophagitis presence: without esophagitis Helicobacter pylori (H. pylori) A04.8
== END 2024-10-19 08:38 | disposition home or self-care (01) ==
LOC: HO.HGI 08:12
PROVIDERS: PCP Internal Medicine; Visit Provider Nurse Practitioner Family
DX: K21.9 Gastro-esophageal reflux disease without esophagitis (principal); A04.8 Other specified bacterial intestinal infections
CPT/HCPCS: 99211

== ENCOUNTER 2024-10-19 08:11 | Outpatient (REF) | payer BC, SELFPAY | END 2024-10-19 08:12 | disposition home or self-care (01) | LOC: CF 08:11 | PROVIDERS: PCP Internal Medicine; Visit Provider Nurse Practitioner Family | DX: K21.9 Gastro-esophageal reflux disease without esophagitis (principal) | CPT/HCPCS: 83013 ==

== ENCOUNTER 2024-11-01 09:31 | Outpatient (AMB) | payer MEDICARE, SELFPAY ==
--- NOTE | 2024-11-01 09:36 | MHC.OFFVIS ---
Vital Signs 11/01/24 09:38 Height 5 ft 4 in Weight 227 lb BMI 39.0 BP 140/100 H Blood Pressure Location Rt brachial Position Sitting Pulse 74 Pulse Source Pulse Oximeter Pulse Oximetry (%) 95 Oxygen Delivery Method Room Air Intake Visit Reasons: 3 Months Intake Note: Patient presents for SLE follow up. Accompanied by: Self / Same As Patient Allergies codeine Allergy (Unknown, Verified 10/04/24 09:15) Swelling, rash HPI HPI 3 Months: Details: Symptomatic with H.pylori. On treatment for H.pylori. She has fevers at night. +fatigue. Left elbow pain resolved. [facility] Medical History Diverticulosis Helicobacter pylori (H. pylori) Migraine Fibromyalgia SLE (systemic lupus erythematosus) Vitamin D deficiency Obesity (BMI 30-39.9) Allergic rhinitis GERD (gastroesophageal reflux disease) Acquired hypothyroidism Sjogren syndrome with other organ involvement Long-term use of high-risk medication Positive JESUS (antinuclear antibody) Surgical History Hx of colonoscopy (~2019) Hx of cholecystectomy Hx of dilation and curettage Hx of tubal ligation History of left oophorectomy Hx of hysterectomy History of breast biopsy Family History Mother Cervical cancer HTN (hypertension) Diabetes Social History Housing: Apartment Alcohol intake: never Patient Tobacco Use Status: Never used Tobacco e-Cigarette/Vaping Use: Never Used Second Hand Smoke Exposure: No service: No Current occupational status: unemployed 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 Good respiratory effort Skin: No lesions seen MSK: No synovitis. Shoulder abduction 160 degrees bilateral with full internal rotation but limited external rotation due to pain. Weak automatic lathe setter. Tender right knee. Knee flexion bilateral 90 degrees limited due to pain. No ankle tenderness. Assessment & Plan Assessment & Plan (1) SLE (systemic lupus erythematosus related syndrome): Comment: Controlled on hydroxychloroquine. Serologically active with mild positive double-stranded DNA. Rheumatology history: Onset 2016: + SSA, SSB, positive double-stranded DNA. Presenting with inflammatory arthritis, facial rash, sicca symptoms. Hydroxychloroquine probably started in 2018, reduced to 300 mg daily 09/2023. She has secondary Sjogren syndrome. Code(s): M32.9 - Systemic lupus erythematosus, unspecified Category: Medical Plan: Labs to assess disease and drug monitoring ordered Continue hydroxychloroquine 300 mg daily. Last eye exam 01/2024 OCT. VF test scheduled this month. She will be following up with PCP in regards H pylori treatment and possible side effect from antibiotic regimen Return to clinic in 3 months (2) Sjogren syndrome with inflammatory arthritis: Comment: Sicca symptoms are uncontrolled. She is on Xiidra for dry eyes and uses Biotene mouthwash and toothpaste. In the past pilocarpine t.i.d. caused excessive saliva production at night. When frequency was reduced to b.i.d. dry mouth worsened. Code(s): M35.05 - Sjogren syndrome with inflammatory arthritis Category: Medical Plan: I recommend that she contact Ophthalmology for management of dry eyes. She has an appointment at the end of the month. Try ry other Biotene products OTC such as lozenges and gum. She will also try XyliMelts. Return to clinic in 3 months (3) Paresthesia of hand, bilateral: Comment: Improved with wearing bilateral wrist braces at night and during the day. Concern for carpal tunnel syndrome. EMG 09/27/2024 unremarkable. Code(s): R20.2 - Paresthesia of skin Category: Medical Plan: Wear bilateral cock-up wrist braces at night OT ordered to improve hand strength Return to clinic in 3 months (4) Left lateral epicondylitis: Comment: Resolved with cortisone injection. Failed PT and elbow support band. Code(s): M77.12 - Lateral epicondylitis, left elbow Category: Medical Plan: RTC PRN (5) Hand weakness: Code(s): R29.898 - Other symptoms and signs involving the musculoskeletal system Category: Medical Plan: OT ordered to improve hand strength Orders: Orders OT Evaluation and Treatment Today R29.898 - Other symptoms and signs involving the musculoskeletal system Erythrocyte Sedimentation Rate Today M32.9 - Systemic lupus erythematosus, unspecified Complement C3 Today M32.9 - Systemic lupus erythematosus, unspecified Aspartate Amino Transferase Today M32.9 - Systemic lupus erythematosus, unspecified Creatinine Today M32.9 - Systemic lupus erythematosus, unspecified UA ClnCatch+Micro w/rflx Cult Today M32.9 - Systemic lupus erythematosus, unspecified Complete Blood Count Auto Diff Today M32.9 - Systemic lupus erythematosus, unspecified Protein Creatinine Ratio, Ur Today M32.9 - Systemic lupus erythematosus, unspecified Alanine Aminotransferase Today M32.9 - Systemic lupus erythematosus, unspecified Complement C4 Today M32.9 - Systemic lupus erythematosus, unspecified DNA Double Stranded-Crithidia Today M32.9 - Systemic lupus erythematosus, unspecified C Reactive Protein Today M32.9 - Systemic lupus erythematosus, unspecified Coding Level of Care Code Est Pt Level 4 (95848) Complex EM visit Add On G2211 Diagnoses SLE (systemic lupus erythematosus related syndrome) M32.9 Sjogren syndrome with inflammatory arthritis M35.05 Paresthesia of hand, bilateral R20.2 Left lateral epicondylitis M77.12 Hand weakness R29.898
[2024-11-01 09:38] VITALS: BP 140/100; PULSE 74; O2SAT 95; BMI 39.0
== END 2024-11-01 10:31 | disposition home or self-care (01) ==
LOC: HO.RHES 09:31
PROVIDERS: PCP Internal Medicine; Visit Provider Internal Medicine Rheumatology
DX: M32.9 Systemic lupus erythematosus, unspecified (principal); M35.05 Sjogren syndrome with inflammatory arthritis; R20.2 Paresthesia of skin; M77.12 Lateral epicondylitis, left elbow; R29.898 Other symptoms and signs involving the musculoskeletal system
CPT/HCPCS: 99214; G2211

== ENCOUNTER → 2024-11-01 09:31 | Outpatient (BNVA) | payer MEDICARE, SELFPAY | PROVIDERS: PCP Internal Medicine; Visit Provider Internal Medicine Rheumatology | DX: Z00.00 Encounter for general adult medical examination without abnormal findings (principal); M32.9 Systemic lupus erythematosus, unspecified; M35.05 Sjogren syndrome with inflammatory arthritis; M79.7 Fibromyalgia; G43.109 Migraine with aura, not intractable, without status migrainosus; E03.9 Hypothyroidism, unspecified; E55.9 Vitamin D deficiency, unspecified; K21.9 Gastro-esophageal reflux disease without esophagitis; K59.00 Constipation, unspecified; J30.2 Other seasonal allergic rhinitis; E66.9 Obesity, unspecified; Z68.39 Body mass index [BMI] 39.0-39.9, adult; Z79.899 Other long term (current) drug therapy; Z13.31 Encounter for screening for depression; Z13.39 Encounter for screening examination for other mental health and behavioral disorders; R20.2 Paresthesia of skin; R29.898 Other symptoms and signs involving the musculoskeletal system | CPT/HCPCS: 96127; 99212; 99396 ==

== ENCOUNTER 2024-11-01 15:47 | Outpatient (AMB) | payer BC, SELFPAY ==
[2024-11-01 15:55] VITALS: BP 130/70; PULSE 82; TEMP 36.2; O2SAT 94; BMI 39.0
--- NOTE | 2024-11-01 15:55 | MHC.PC.OV ---
Vital Signs 11/01/24 15:55 Height 5 ft 4 in Weight 227 lb 2 oz BMI 39.0 BP 130/70 Blood Pressure Location Lt brachial Position Sitting Pulse 82 Pulse Source Pulse Oximeter Temp 97.1 F Temp Source Temporal Artery Scan Pulse Oximetry (%) 94 Oxygen Delivery Method Room Air Intake Visit Reasons: Annual PE Intake Note: Patient is here today for a physical. Contact Center Agent Required: No Driller'S Assistant: Not Required per policy Accompanied by: Self / Same As Patient Allergies codeine Allergy (Unknown, Verified 11/01/24 16:25) Swelling, rash Medication List - Last Reconciled 11/01/24 by Yasir Otero MD arm brace (Wrist Brace) As directed Bilateral cockup wrist braces Dx: carpal tunnel syndrome bismuth subsalicylate 2 tabs PO QID 14 days cetirizine 10 mg PO DAILY cholecalciferol (vitamin D3) 50 mcg PO DAILY 90 days diclofenac sodium 1% (Arthritis Pain (diclofenac)) 2 grams topical QID PRN doxycycline hyclate 100 mg PO BID 14 days famotidine 20 mg PO BEDTIME fluticasone propionate 50 mcg/actuation (Flonase Allergy Relief) 1 spray intranasal DAILY gabapentin 600 mg (2 x 300 mg) PO BEDTIME hydroxychloroquine 300 mg (1.5 x 200 mg) PO DAILY 90 days levothyroxine 75 mcg PO DAILY lifitegrast 5% (Xiidra) 1 drp ophthalmic (eye) Q12H metronidazole 1,000 mg (2 x 500 mg) PO BID omeprazole 20 mg PO DAILY 90 days ondansetron 4 mg PO Q8H PRN sumatriptan succinate 50 mg PO .q8 PRN tizanidine 4 mg PO BEDTIME 30 days Tobacco use date assessed: 11/01/24 Dental Screening Dental Screen Date: 11/01/24 Did you have a dental visit in the last 12 months?: Yes Did you have a dental problem in the last 6 months where you did not have access to dental care?: No Was dental information given to patient?: Patient has dentist HPI Annual PE HPI Details Patient comes in today for her annual physical examination States that she feels okay She denies any headaches or dizziness Denies any chest pains, no shortness a breath No nausea/vomiting, no abdominal pain No change in bowel habits noted She denies any acute urinary symptoms Needs her Vitamin D Rx refilled She had her follow-up labs done a few months ago in July 2024; has no other follow up labs done since She is up-to-date with all of her cancer screenings Mammogram was last done on 09/03/2024 Screening colonoscopy was last done on 03/25/2024 She is s/p hysterectomy in 2006 so she no longer has to keep up with her yearly gynecology exam and Pap smear Her BMD was last done on 07/24/23 - BMD was normal [facility] Medical History Diverticulosis Helicobacter pylori (H. pylori) Migraine Fibromyalgia SLE (systemic lupus erythematosus) Vitamin D deficiency Obesity (BMI 30-39.9) Allergic rhinitis GERD (gastroesophageal reflux disease) Acquired hypothyroidism Sjogren syndrome with other organ involvement Long-term use of high-risk medication Positive JESUS (antinuclear antibody) Surgical History Hx of colonoscopy (~2019) Hx of cholecystectomy Hx of dilation and curettage Hx of tubal ligation History of left oophorectomy Hx of hysterectomy History of breast biopsy Family History Mother Cervical cancer HTN (hypertension) Diabetes Social History Housing: Apartment Alcohol intake: never Patient Tobacco Use Status: Never used Tobacco e-Cigarette/Vaping Use: Never Used Second Hand Smoke Exposure: No service: No Current occupational status: unemployed 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 1. Little interest or pleasure in doing things: not at all 2. Feeling down, depressed, or hopeless: not at all 3. Trouble falling or staying asleep, or sleeping too much: several days 4. Feeling tired or having little energy: several days 5. Poor appetite or overeating: several days 6. Feeling bad about yourself - or that you are a failure or have let yourself or your family down: not at all 7. Trouble concentrating on things, such as reading the newspaper or watching television: not at all 8. Moving or speaking so slowly that other people could have noticed. Or the opposite - being so fidgety or restless that you have been moving around a lot more than usual: several days 9. Thoughts that you would be better off or of hurting yourself in some way: not at all Total score: 4 Depression Screening Interpretation: Positive Depression Screening Follow-up: Follow-up Visit Requested Depression Screening Done: Yes 59014 - PHQ-9 Billing: Yes Source: Developed by Drs. Hima Ferris, Kaci De La Cruz, Manas Thomas and colleagues, with an educational bridget from [employer]. Thrive Questionnaire Date Thrive assessed: 11/01/24 I am a: Patient What is your living situation today?: I have a steady place to live Within the past 12 months, did the food you bought not last and you didn't have the money to get more?: Never true Within the past 12 months, did you worry whether your food would run out before you got money to buy more?: Never true Do you have trouble paying for medicines?: No Do you have trouble getting transportation to medical appointments?: No Do you have trouble paying your heating and electricity bill?: No Do you have trouble taking care of your child, family member or friend?: No Do you have trouble with day-to-day activities such as bathing, preparing meals, shopping, managing finances, etc.?: No Are you currently unemployed and looking for a job?: No Are you interested in more education?: No Please select the resources that you would like help with: None Currently or been in a relationship where the following occur: No concerns reported THRIVE Score: 0 AUDIT C Alcohol Use Questionnaire (AUDIT-C) 1. How often do you have a drink containing alcohol?: Never 3. How often do you have six or more drinks on one occasion?: Never Total Score: 0 Score Reviewed/Action Taken: Yes GRAY-7 AMB Questionnaire GRAY-7 Date GRAY - 7 assessed: 11/01/24 Feeling nervous, anxious, or on edge: 1 = Several days Not being able to stop or control worryin = Not at all Worrying too much about different things: 0 = Not at all Trouble relaxin = Several days Being so restless that it is hard to sit still: 1 = Several days Becoming easily annoyed or irritable: 1 = Several days Feeling afraid as if something awful might happen: 0 = Not at all Total GRAY-7 score (0-4 normal; 5-9 mild; 10-14 moderate; 15-21 severe): 4 Source: Developed by Drs. Hima Ferris, Kaci De La Cruz, Manas Thomas and colleagues, with an educational bridget from [employer]. Review of Systems Const Denies chills, Denies fatigue, Denies fever(s), Denies headache(s) and Denies malaise Eyes Denies blurry vision, Denies change in vision, Denies irritation and Denies itchy eyes ENT Denies dysphagia, Denies dizziness, Denies otalgia, Denies headache(s), Denies nasal congestion, Denies neck pain, Denies odynophagia, Denies sinus pain and Denies sore throat Card Denies chest pain, Denies rapid heart rate, Denies irregular heart rhythm, Denies palpitations and Denies dyspnea Resp Denies chest congestion, Denies cough, Denies dyspnea and Denies wheezing GI Denies abdominal pain, Denies bloating, Denies constipation, Denies dysphagia, Denies heartburn, Denies diarrhea, Denies nausea, Denies odynophagia and Denies vomiting Denies hematuria, Denies urinary frequency, Denies dysuria, Denies urinary incontinence and Denies urinary urgency Musc Denies back pain, Denies arthralgias, Denies joint swelling, Denies muscle weakness and Denies neck pain Skin/Breast Denies breast pain, Denies breast mass, Denies change in pigmentation, Denies lesions, Denies rash and Denies unusual bruising Neuro Denies dizziness, Denies headache(s) and Denies paresthesias Psych Denies anxiety and Denies depression Endo Denies fatigue and Denies palpitations Cristóbal/Lymph Denies easy bruising Aller/Immun Denies itchy eyes and Denies wheezing Physical exam (Primary Care) Vital Signs: Last Vital Signs Temp 97.1 F 11/01/24 15:55 Pulse 82 11/01/24 15:55 BP 130/70 11/01/24 15:55 Pulse Ox 94 11/01/24 15:55 Oxygen Delivery Method Room Air 11/01/24 15:55 BMI result Body Mass Index 39.0 Tobacco/Smoking Status: Tobacco use Status Tobacco use date assessed 11/01/24 11/01/24 16:01 Patient Tobacco Use Status Never used Tobacco 11/01/24 15:55 e-Cigarette/Vaping Use Never Used 11/01/24 15:55 PHQ-9: PHQ-9 Score PHQ-9: Total score 4 11/01/24 16:26 Depression Screening Interpretation: Positive Depression Screening Follow-up: Follow-up Visit Requested Thrive Assessment: Date of Thrive Assessment Date Thrive assessed 11/01/24 11/01/24 16:01 Currently or been in a relationship where the following occur: No concerns reported Const General: no acute distress, alert and awake Orientation/consciousness: patient oriented x3 HENMT Head: Yes normocephalic and Yes atraumatic Ears: external ears normal, TM's normal bilaterally and EAC's normal General nose exam: No nasal discharge present Face and sinus: Yes normal facial exam and Yes sinuses nontender Teeth and gingiva: dentition normal Throat: Yes posterior oropharynx normal and Yes tonsils normal (no TP congestion) Eyes Eyelids: Yes eyelids normal Conjunctivae: conjunctivae normal Pupils: Equal, round and reactive pupils present EOM: EOMs intact bilaterally Neck Neck: Yes no lymphadenopathy and Yes supple Thyroid: Thyroid normal Resp Auscultation: clear to auscultation bilaterally, no rales and no wheezes Cardio Rate: regular rate Rhythm: regular rhythm Heart sounds: no murmurs GI Palpation (GI): Soft to palpation, nontender and No hepatosplenomegaly present Auscultation: normal bowel sounds General: Yes no CVA tenderness Back/Spine/Pelvis Back: no CVA tenderness Thoracic/Lumbar Spine: thoracic and lumbar spine normal to inspection Skin Lesions: no lesions Rashes: no rashes Neuro General: patient oriented x3, moves all extremities, no focal motor deficits and CN's II-XI intact bilaterally Cranial nerves: Yes Equal, round and reactive pupils present Cognition (Neuro): normal cognition Gait exam (Neuro): Normal gait present Extrem General: Yes no clubbing, cyanosis or edema Results Reviewed Results Reviewed: Laboratory Tests 07/29/24 07/29/24 07:29 07:36 WBC 8.1 Hgb 14.4 Hct 43.7 Plt Count 345 ESR 10 Sodium 142 Potassium 4.5 Creatinine 0.79 Estimated GFR > 60 Fasting Glucose 114 H Calcium 9.4 D AST 30 ALT 36 H Triglycerides 128 Cholesterol 216 H LDL Cholesterol, Calc 148 H HDL Cholesterol 43 25-OH Vitamin D Total 17.0 L TSH 43.79 H Free T4 0.46 L Ur Specific [place] 1.025 Urine Protein Negative Urine Glucose (UA) Negative Urine Blood Negative Urine Nitrite Negative Ur Leukocyte Esterase Negative Double Strand DNA Ab 9 H Coding Level of Care Code Est Pt Prev Care 40-64y(95575) Diagnoses Annual physical exam Z00.00 SLE (systemic lupus erythematosus related syndrome) M32.9 Sjogren syndrome with inflammatory arthritis M35.05 Fibromyalgia M79.7 Migraine with aura and without status migrainosus, not intractable G43.109 Status migrainosus presence: without status migrainosus Intractability: not intractable Acquired hypothyroidism E03.9 Vitamin D deficiency E55.9 Gastroesophageal reflux disease without esophagitis K21.9 Esophagitis presence: without esophagitis Constipation, unspecified constipation type K59.00 Constipation type: unspecified constipation type Seasonal allergic rhinitis, unspecified trigger J30.2 Allergic rhinitis trigger: unspecified Allergic rhinitis seasonality: seasonal Obesity (BMI 30-39.9) E66.9 Additional Codes PHQ-9 - 18598 - PHQ-9 Billing: Yes ([id number]) Assessment & Plan Assessment & Plan (1) Annual physical exam: Code(s): Z00.00 - Encounter for general adult medical examination without abnormal findings Category: Medical Plan: Check labs JAVIER She is up-to-date with all of her cancer screenings Mammogram was last done on 09/03/2024 Screening colonoscopy was last done on 03/25/2024 She is s/p hysterectomy in 2006 so she no longer has to keep up with her yearly gynecology exam and Pap smear Her BMD was last done on 07/24/23 - BMD was normal (2) SLE (systemic lupus erythematosus related syndrome): Comment: Controlled on hydroxychloroquine. Serologically active with mild positive double-stranded DNA. Rheumatology history: Onset 2016: + SSA, SSB, positive double-stranded DNA. Presenting with inflammatory arthritis, facial rash, sicca symptoms. Hydroxychloroquine probably started in 2018, reduced to 300 mg daily 09/2023. She has secondary Sjogren syndrome. Code(s): M32.9 - Systemic lupus erythematosus, unspecified Category: Medical Plan: Continue Hydroxychloroquine 400 mg QD Follow up with [facility] Rheumatology as scheduled Patient's eye exam done a few months ago came back normal - she continues to require annual eye exam routinely as she is on maintenance Tx with Hydroxychloroquine and an annual eye exam is recommended for patients on the Rx due to its potential ophthalmic toxicity/side effects (3) Sjogren syndrome with inflammatory arthritis: Comment: Sicca symptoms are uncontrolled. She is on Xiidra for dry eyes and uses Biotene mouthwash and toothpaste. In the past pilocarpine t.i.d. caused excessive saliva production at night. When frequency was reduced to b.i.d. dry mouth worsened. Code(s): M35.05 - Sjogren syndrome with inflammatory arthritis Category: Medical Plan: Continue Gabapentin 300 mg in AM and 600 mg Q HS, Nabumetone 500 mg BID and Diclofenac sodium 1% gel apply 2 gms QID PRN Continue Xiidra 5% apply to eye Q 12 hours She has been advised by rheumatology in the past that she appears to have a mix of SLE and Sjogren's syndrome with arthralgias and fibromyalgia but was seen at [facility] Rheumatology more recently and advised that her symptoms are mostly consistent with fibromyalgia/UCTD and she does not have much in terms of symptoms of any other inflammatory arthritis Follow up with rheumatology as scheduled (4) Fibromyalgia: Code(s): M79.7 - Fibromyalgia Category: Medical Plan: She has been advised that her symptoms are more consistent with fibromyalgia Continue Gabapentin 300 mg Q AM and 600 mg Q HS and Tizanidine 4 mg Q HS PRN (5) Migraine with aura: Comment: in her 30's Code(s): G43.109 - Migraine with aura, not intractable, without status migrainosus Category: Medical Qualifiers: Status migrainosus presence: without status migrainosus Intractability: not intractable Qualified Code(s): G43.109 - Migraine with aura, not intractable, without status migrainosus Plan: Reinforced avoidance of potential migraine triggers Continue Sumatriptan 50 mg PRN Follow up with neurology as scheduled (6) Acquired hypothyroidism: Code(s): E03.9 - Hypothyroidism, unspecified Category: Medical Plan: Continue Levothyroxine 75 mcg QD Will recheck her TFTs JAVIER for follow up (7) Vitamin D deficiency: Code(s): E55.9 - Vitamin D deficiency, unspecified Category: Medical Plan: Continue Vitamin D3 2000 units QD Her BMD done back in June 2023 came back normal (8) GERD (gastroesophageal reflux disease): Code(s): K21.9 - Gastro-esophageal reflux disease without esophagitis Category: Medical Qualifiers: Esophagitis presence: without esophagitis Qualified Code(s): K21.9 - Gastro-esophageal reflux disease without esophagitis Plan: Dietary restrictions reinforced Continue Famotidine 20 mg QD and Omeprazole 20 mg QD Advised again that if her symptoms persist despite her Rx, will need to refer her to GI for further evaluation and consideration for EGD (9) Constipation: Code(s): K59.00 - Constipation, unspecified Category: Medical Qualifiers: Constipation type: unspecified constipation type Qualified Code(s): K59.00 - Constipation, unspecified Plan: Patient is encouraged again on increased oral fluids and dietary fiber Continue Metamucil daily PRN and Miralax powder 17 gm QD (10) Allergic rhinitis: Code(s): J30.9 - Allergic rhinitis, unspecified Category: Medical Qualifiers: Allergic rhinitis trigger: unspecified Allergic rhinitis seasonality: seasonal Qualified Code(s): J30.2 - Other seasonal allergic rhinitis Plan: Contine Cetirizine 10 mg QD PRN and Fluticasone 50 mcg nasal spray QD PRN (11) Obesity (BMI 30-39.9): Code(s): E66.9 - Obesity, unspecified Category: Medical Plan: Reinforced diet/exercise as tolerated/lose weight Plan Follow up in 4 months Orders: Orders Hemoglobin A1c 11/01/24 R73.9 - Hyperglycemia, unspecified, Z00.00 - Encounter for general adult medical examination without abnormal findings Comprehensive [place]. Panel Fast 11/01/24 E78.00 - Pure hypercholesterolemia, unspecified, Z00.00 - Encounter for general adult medical examination without abnormal findings Thyroid Stimulating Hormone 11/01/24 E03.9 - Hypothyroidism, unspecified, Z00.00 - Encounter for general adult medical examination without abnormal findings Free T4 (Free Thyroxine) 11/01/24 E03.9 - Hypothyroidism, unspecified, Z00.00 - Encounter for general adult medical examination without abnormal findings UA CC w/rflx Micro + Cult 11/01/24 R30.0 - Dysuria, Z00.00 - Encounter for general adult medical examination without abnormal findings Vitamin B12 and Folate 11/01/24 E53.8 - Deficiency of other specified B group vitamins, Z00.00 - Encounter for general adult medical examination without abnormal findings Lipid Panel 11/01/24 E78.00 - Pure hypercholesterolemia, unspecified, Z00.00 - Encounter for general adult medical examination without abnormal findings Vitamin D 25-OH Total 11/01/24 E55.9 - Vitamin D deficiency, unspecified, Z00.00 - Encounter for general adult medical examination without abnormal findings Medications: Refilled cholecalciferol (vitamin D3) 50 mcg PO DAILY 90 caps 3RF 90 days E55.9 - Vitamin D deficiency, unspecified
== END 2024-11-01 16:41 | disposition home or self-care (01) ==
LOC: HO.HMCH 15:47
PROVIDERS: PCP Internal Medicine; Visit Provider Internal Medicine
DX: Z00.00 Encounter for general adult medical examination without abnormal findings (principal); M32.9 Systemic lupus erythematosus, unspecified; E66.9 Obesity, unspecified; Z68.39 Body mass index [BMI] 39.0-39.9, adult; M35.05 Sjogren syndrome with inflammatory arthritis; M79.7 Fibromyalgia; G43.109 Migraine with aura, not intractable, without status migrainosus; E03.9 Hypothyroidism, unspecified; E55.9 Vitamin D deficiency, unspecified; K21.9 Gastro-esophageal reflux disease without esophagitis; K59.00 Constipation, unspecified; J30.2 Other seasonal allergic rhinitis

== ENCOUNTER 2024-11-10 07:20 | Outpatient (REF) | payer BC, SELFPAY ==
[2024-11-10 07:52] LABS: MANUAL DIFF FLAG NO
[2024-11-10 08:35] LABS: Hematocrit 43.4 % (37.0-47.0); Hemoglobin 14.3 g/dl (12.0-16.0); Imm Gran Abs Auto 0.02 X10*3/uL (0.00-0.03); Imm Gran Pct Auto 0.3 % (0.0-0.4); Lymphocytes Absolute Auto 3.0 X10*3/uL (1.2-4.9); Mean Corpuscular HGB Conc 32.9 g/dl (31.0-35.0); Mean Corpuscular Hemoglobin 28.5 pg (27.0-33.0); Mean Corpuscular Volume 86.5 fL (80.0-98.0); NRBC Abs Auto 0.000 X10*3/uL (0.0-0.012); NRBC Pct Auto 0.0 /100WBC (0.0-0.2); Platelet Count 299 X10*3/uL (160-400); Red Blood Count 5.02 X10*6/uL (4.20-5.50); White Blood Count 7.8 X10*3/uL (4.8-10.8)
[2024-11-10 08:52] LABS: Appearance Urine Clear; Glucose Urine UA Negative (Negative); PH 5.5 (5.0-9.0); Specific Gravity - Urine >= 1.030 (1.005-1.025); UMIC TRIGGER UACC YES
[2024-11-10 09:10] LABS: Hemoglobin A1C 155.7133 umol/L; Total Hemoglobin (HGBA1C) 3763.6637 umol/L
[2024-11-10 09:16] LABS: Alanine Aminotransferase 43 U/L (0-31); Aspartate Amino Transferase 30 U/L (5-31)
[2024-11-10 09:20] LABS: Alanine Aminotransferase 45 U/L (0-31); Albumin Level 4.0 g/dL (3.5-5.0); Alkaline Phosphatase 79 U/L (39-117); Anion Gap 9 (12-20); Aspartate Amino Transferase 31 U/L (5-31); Blood Urea Nitrogen 15 mg/dL (9-16); Calcium 8.7 mg/dL (8.4-10.2); Carbon Dioxide 24 mmol/L (22-29); Chloride 111 mmol/L (96-108); Cholesterol 178 mg/dL (<200); Estimated Glomerular Filt Rate > 60; HDL Cholesterol 32 mg/dL (>40); Potassium 3.7 mmol/L (3.3-5.1); Sodium 140 mmol/L (135-145); Total Protein 7.0 g/dL (6.5-8.0); Triglycerides 131 mg/dL (<150)
[2024-11-10 09:35] LABS: Protein/Creatinine Ratio, Ur 0.05 (<0.2); Total Protein Urine Random 11 mg/dL (<12)
[2024-11-10 09:36] LABS: Free T4 (Free Thyroxine) 0.87 ng/dL (0.71-1.85); Thyroid Stimulating Hormone 3.03 uIU/mL (0.32-4.0)
[2024-11-10 09:41] LABS: Folate 13.9 ng/mL (> or = 4.0); Vitamin B12 462 pg/mL (200-900)
[2024-11-15 08:48] LABS: DNAds, Crithidia Antibody Negative (Negative)
== END 2024-11-10 07:21 | disposition home or self-care (01) ==
LOC: HO.LAB 07:20
PROVIDERS: Absent Provider Internal Medicine Rheumatology; PCP Internal Medicine; Visit Provider Internal Medicine
DX: Z00.00 Encounter for general adult medical examination without abnormal findings (principal); E78.00 Pure hypercholesterolemia, unspecified; R73.9 Hyperglycemia, unspecified; M32.9 Systemic lupus erythematosus, unspecified; E03.9 Hypothyroidism, unspecified; E53.8 Deficiency of other specified B group vitamins; E55.9 Vitamin D deficiency, unspecified; R30.0 Dysuria
CPT/HCPCS: 36415; 80053; 80061; 81001; 82306; 82570; 82607; 82746; 83036; 84156; 84439; 84443; 84450; 84460; 85025; 85652; 86140; 86160; 86255

== ENCOUNTER 2025-03-06 09:11 | Outpatient (AMB) | payer BC, SELFPAY ==
[2025-03-06 09:27] VITALS: BP 124/80; PULSE 81; TEMP 36.2; O2SAT 97; BMI 39.4
--- NOTE | 2025-03-06 09:27 | MHC.PC.OV ---
Vital Signs 03/06/25 09:27 Height 5 ft 4 in Weight 229 lb 6 oz BMI 39.4 BP 124/80 Blood Pressure Location Lt brachial Position Sitting Pulse 81 Pulse Source Pulse Oximeter Temp 97.1 F Temp Source Temporal Artery Scan Pulse Oximetry (%) 97 Oxygen Delivery Method Room Air Intake Visit [facility] Capsule Maker Required: No Accompanied by: Self / Same As Patient Allergies codeine Allergy (Unknown, Verified 03/06/25 09:53) Swelling, rash Medication List - Last Reconciled 03/06/25 by Yasir Otero MD arm brace (Wrist Brace) As directed Bilateral cockup wrist braces Dx: carpal tunnel syndrome cetirizine 10 mg PO DAILY cholecalciferol (vitamin D3) 50 mcg PO DAILY 90 days famotidine 20 mg PO BEDTIME fluticasone propionate 50 mcg/actuation (Flonase Allergy Relief) 1 spray intranasal DAILY gabapentin 600 mg (2 x 300 mg) PO BEDTIME hydroxychloroquine 300 mg (1.5 x 200 mg) PO DAILY 90 days levothyroxine 75 mcg PO DAILY lifitegrast 5% (Xiidra) 1 drp ophthalmic (eye) Q12H omeprazole 20 mg PO DAILY 90 days sumatriptan succinate 50 mg PO .q8 PRN tizanidine 4 mg PO BEDTIME 30 days Tobacco use date assessed: 03/06/25 Dental Screening Dental Screen Date: 03/06/25 Did you have a dental visit in the last 12 months?: Yes Did you have a dental problem in the last 6 months where you did not have access to dental care?: No HPI [facility] HPI Details Patient comes in today for her follow up visit States that she feels okay She denies any headaches or dizziness Denies any chest pains, no shortness a breath No nausea/vomiting, no abdominal pain No change in bowel habits noted Needs her Levothyroxine Rx refilled She had her follow-up labs done a few months ago in October 2024 - to discuss her results [facility] Medical History Diverticulosis Helicobacter pylori (H. pylori) Migraine Fibromyalgia SLE (systemic lupus erythematosus) Vitamin D deficiency Obesity (BMI 30-39.9) Allergic rhinitis GERD (gastroesophageal reflux disease) Acquired hypothyroidism Sjogren syndrome with other organ involvement Long-term use of high-risk medication Positive JESUS (antinuclear antibody) Surgical History Hx of colonoscopy (~2019) Hx of cholecystectomy Hx of dilation and curettage Hx of tubal ligation History of left oophorectomy Hx of hysterectomy History of breast biopsy Family History Mother Cervical cancer HTN (hypertension) Diabetes Social History Housing: Apartment Alcohol intake: never Patient Tobacco Use Status: Never used Tobacco e-Cigarette/Vaping Use: Never Used Second Hand Smoke Exposure: No service: No Current occupational status: unemployed 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 Cognitive needs: No Hearing needs: No Vision needs: Yes (glasses) Questionnaire Thrive Questionnaire Date Thrive assessed: 11/01/24 I am a: Patient What is your living situation today?: I have a steady place to live Within the past 12 months, did the food you bought not last and you didn't have the money to get more?: Never true Within the past 12 months, did you worry whether your food would run out before you got money to buy more?: Never true Do you have trouble paying for medicines?: No Do you have trouble getting transportation to medical appointments?: No Do you have trouble paying your heating and electricity bill?: No Do you have trouble taking care of your child, family member or friend?: No Do you have trouble with day-to-day activities such as bathing, preparing meals, shopping, managing finances, etc.?: No Are you currently unemployed and looking for a job?: No Are you interested in more education?: No Please select the resources that you would like help with: None Currently or been in a relationship where the following occur: No concerns reported THRIVE Score: 0 GRAY-7 AMB Questionnaire GRAY-7 Date GRAY - 7 assessed: 11/01/24 Source: Developed by Drs. Hima Ferris, Kaci De La Cruz, Manas Thomas and colleagues, with an educational bridget from [employer]. Review of Systems Const Denies chills, Denies fatigue, Denies fever(s) and Denies headache(s) ENT Denies dysphagia, Denies dizziness, Denies otalgia, Denies headache(s), Denies neck pain, Denies odynophagia and Denies sore throat Card Denies chest pain, Denies irregular heart rhythm, Denies palpitations and Denies dyspnea Resp Denies chest congestion, Denies cough and Denies dyspnea GI Denies abdominal pain, Denies constipation, Denies dysphagia, Denies heartburn, Denies diarrhea, Denies nausea, Denies odynophagia and Denies vomiting Denies difficulty voiding, Denies nocturia, Denies dysuria and Denies urinary urgency Musc Denies back pain, Denies arthralgias and Denies neck pain Skin/Breast Denies rash Neuro Denies dizziness, Denies headache(s) and Denies paresthesias Psych Denies anxiety and Denies depression Endo Denies fatigue and Denies palpitations Cristóbal/Lymph Denies easy bruising Physical exam (Primary Care) Vital Signs: Last Vital Signs Temp 97.1 F 03/06/25 09:27 Pulse 81 03/06/25 09:27 BP 124/80 03/06/25 09:27 Pulse Ox 97 03/06/25 09:27 Oxygen Delivery Method Room Air 03/06/25 09:27 BMI result Body Mass Index 39.4 Tobacco/Smoking Status: Tobacco use Status Tobacco use date assessed 03/06/25 03/06/25 09:28 Patient Tobacco Use Status Never used Tobacco 03/06/25 09:28 e-Cigarette/Vaping Use Never Used 03/06/25 09:28 Thrive Assessment: Date of Thrive Assessment Date Thrive assessed 11/01/24 03/06/25 09:28 Currently or been in a relationship where the following occur: No concerns reported Const General: no acute distress and alert HENMT Ears: TM's normal bilaterally and EAC's normal Throat: Yes posterior oropharynx normal and Yes tonsils normal (no TP congestion) Neck Neck: Yes supple and No lymphadenopathy Thyroid: Thyroid normal Resp Auscultation: clear to auscultation bilaterally, no rales and no wheezes Cardio Rate: regular rate Rhythm: regular rhythm Heart sounds: no murmurs GI Palpation (GI): Soft to palpation and nontender Auscultation: normal bowel sounds General: Yes no CVA tenderness Back/Spine/Pelvis Back: no CVA tenderness Thoracic/Lumbar Spine: No lumbar spinal tenderness Skin Rashes: no rashes Extrem General: Yes no clubbing, cyanosis or edema Results Reviewed Results Reviewed: Laboratory Tests 11/10/24 11/10/24 07:42 07:50 WBC 7.8 Hgb 14.3 Hct 43.4 Plt Count 299 ESR 9 Sodium 140 Potassium 3.7 Creatinine 0.74 Estimated GFR > 60 Fasting Glucose 116 H Hemoglobin A1c % 5.9 Calcium 8.7 D AST 31 ALT 45 H C-Reactive Protein 0.77 H Triglycerides 131 Cholesterol 178 LDL Cholesterol, Calc 120 H HDL Cholesterol 32 L Vitamin B12 462 25-OH Vitamin D Total 24.4 L TSH 3.03 Free T4 0.87 Ur Specific [place] >= 1.030 H Urine Protein Negative Urine Glucose (UA) Negative Urine Blood Negative Urine Nitrite Negative Ur Leukocyte Esterase Trace H Anti-ds DNA Titer (Crith) TNP Anti-ds DNA (Crithidia) Negative Complement C3 171 Complement C4 26 Coding Level of Care Code Est Pt Level 4 (61711) Diagnoses SLE (systemic lupus erythematosus related syndrome) M32.9 Sjogren syndrome with inflammatory arthritis M35.05 Fibromyalgia M79.7 Migraine with aura and without status migrainosus, not intractable G43.109 Status migrainosus presence: without status migrainosus Intractability: not intractable Acquired hypothyroidism E03.9 Vitamin D deficiency E55.9 Gastroesophageal reflux disease without esophagitis K21.9 Esophagitis presence: without esophagitis Constipation, unspecified constipation type K59.00 Constipation type: unspecified constipation type Seasonal allergic rhinitis, unspecified trigger J30.2 Allergic rhinitis trigger: unspecified Allergic rhinitis seasonality: seasonal Obesity (BMI 30-39.9) E66.9 Assessment & Plan Assessment & Plan (1) SLE (systemic lupus erythematosus related syndrome): Comment: Controlled on hydroxychloroquine. Serologically active with mild positive double-stranded DNA. Rheumatology history: Onset 2015: + SSA, SSB, positive double-stranded DNA. Presenting with inflammatory arthritis, facial rash, sicca symptoms. Hydroxychloroquine probably started in 2018, reduced to 300 mg daily 09/2023. She has secondary Sjogren syndrome. Code(s): M32.9 - Systemic lupus erythematosus, unspecified Category: Medical Plan: Continue Hydroxychloroquine 400 mg QD Follow up with [facility] as scheduled Patient's eye exam done a few months ago came back normal - she will require annual eye exam routinely as she is on maintenance Tx with Hydroxychloroquine, which has potential ophthalmic toxicity/side effects (2) Sjogren syndrome with inflammatory arthritis: Comment: Sicca symptoms are uncontrolled. She is on Xiidra for dry eyes and uses Biotene mouthwash and toothpaste. In the past pilocarpine t.i.d. caused excessive saliva production at night. When frequency was reduced to b.i.d. dry mouth worsened. Code(s): M35.05 - Sjogren syndrome with inflammatory arthritis Category: Medical Plan: Continue Gabapentin 300 mg in AM and 600 mg Q HS, Nabumetone 500 mg BID and Diclofenac sodium 1% gel apply 2 gms QID PRN Continue Xiidra 5% apply to eye Q 12 hours She has been advised by rheumatology in the past that she appears to have a mix of SLE and Sjogren's syndrome with arthralgias and fibromyalgia but was seen at [facility] more recently and advised that her symptoms are mostly consistent with fibromyalgia/UCTD and she does not have much in terms of symptoms of any other inflammatory arthritis Follow up with rheumatology as scheduled (3) Fibromyalgia: Code(s): M79.7 - Fibromyalgia Category: Medical Plan: Continue Gabapentin 300 mg Q AM and 600 mg Q HS and Tizanidine 4 mg Q HS PRN Patient is again encouraged to try to stay active and exercise regularly as much as she can tolerate to better manage her fibromyalgia symptoms (4) Migraine with aura: Comment: in her 30's Code(s): G43.109 - Migraine with aura, not intractable, without status migrainosus Category: Medical Qualifiers: Status migrainosus presence: without status migrainosus Intractability: not intractable Qualified Code(s): G43.109 - Migraine with aura, not intractable, without status migrainosus Plan: Reinforced avoidance of all potential migraine triggers Continue Sumatriptan 50 mg PRN Follow up with neurology as scheduled (5) Acquired hypothyroidism: Code(s): E03.9 - Hypothyroidism, unspecified Category: Medical Plan: Results of her labs done back in October 2024 reviewed and discussed with patient Continue Levothyroxine 75 mcg QD - Rx refilled Will recheck her TFTs in 4 months for follow up (6) Vitamin D deficiency: Code(s): E55.9 - Vitamin D deficiency, unspecified Category: Medical Plan: Continue Vitamin D3 2000 units QD Her BMD done back in June 2023 came back normal (7) GERD (gastroesophageal reflux disease): Code(s): K21.9 - Gastro-esophageal reflux disease without esophagitis Category: Medical Qualifiers: Esophagitis presence: without esophagitis Qualified Code(s): K21.9 - Gastro-esophageal reflux disease without esophagitis Plan: Dietary restrictions reinforced Continue Famotidine 20 mg QD and Omeprazole 20 mg QD Advised again that if her symptoms persist despite her Rx, will need to refer her to GI for further evaluation and consideration for EGD (8) Constipation: Code(s): K59.00 - Constipation, unspecified Category: Medical Qualifiers: Constipation type: unspecified constipation type Qualified Code(s): K59.00 - Constipation, unspecified Plan: Patient is encouraged again on increased oral fluids and dietary fiber intake Continue Metamucil daily PRN and Miralax powder 17 gm QD (9) Allergic rhinitis: Code(s): J30.9 - Allergic rhinitis, unspecified Category: Medical Qualifiers: Allergic rhinitis trigger: unspecified Allergic rhinitis seasonality: seasonal Qualified Code(s): J30.2 - Other seasonal allergic rhinitis Plan: Contine Cetirizine 10 mg QD PRN and Fluticasone 50 mcg nasal spray QD PRN (10) Obesity (BMI 30-39.9): Code(s): E66.9 - Obesity, unspecified Category: Medical Plan: Reinforced diet/exercise as tolerated/lose weight Patient is inquiring if she is a candidate for the GLP-1 injections to help her lose weight I have advised patient that she may benefit from the GLP-1 injections but as per my experiences with patient with commercial insurances like [employer], they would not cover the GLP-1 injections unless patient is being treated in conjunction with a certified weight management program so I will go ahead and refer her to weight management I have also advised that she get clearance from both GI and rheumatology as well regarding this, just in case they have any reservations about the Rx in light of her multiple comorbidities Plan Follow up in 4 months Orders: Orders Complete Blood Count Auto Diff 4 Months D64.9 - Anemia, unspecified Vitamin D 25-OH Total 4 Months E55.9 - Vitamin D deficiency, unspecified Comprehensive [place]. Panel Fast 4 Months E78.00 - Pure hypercholesterolemia, unspecified Lipid Panel 4 Months E78.00 - Pure hypercholesterolemia, unspecified Hemoglobin A1c 4 Months R73.01 - Impaired fasting glucose Free T4 (Free Thyroxine) 4 Months E03.9 - Hypothyroidism, unspecified Thyroid Stimulating Hormone 4 Months E03.9 - Hypothyroidism, unspecified UA CC w/rflx Micro + Cult 4 Months R30.0 - Dysuria Referrals Medical Weight Management Referral E66.9 - Obesity, unspecified, M32.9 - Systemic lupus erythematosus, unspecified, R73.01 - Impaired fasting glucose Medications: Changed From levothyroxine 75 mcg PO DAILY 90 tabs 0RF To levothyroxine 75 mcg PO DAILY 90 tabs 1RF 90 days
== END 2025-03-06 10:03 | disposition home or self-care (01) ==
LOC: HO.HMCH 09:12
PROVIDERS: PCP Internal Medicine; Visit Provider Internal Medicine
DX: G43.109 Migraine with aura, not intractable, without status migrainosus (principal); M32.9 Systemic lupus erythematosus, unspecified; E66.9 Obesity, unspecified; Z68.39 Body mass index [BMI] 39.0-39.9, adult; M35.05 Sjogren syndrome with inflammatory arthritis; M79.7 Fibromyalgia; E03.9 Hypothyroidism, unspecified; E55.9 Vitamin D deficiency, unspecified; K21.9 Gastro-esophageal reflux disease without esophagitis; K59.00 Constipation, unspecified; J30.2 Other seasonal allergic rhinitis

== ENCOUNTER 2025-03-07 09:07 | Outpatient (AMB) | payer MEDICARE, SELFPAY ==
--- NOTE | 2025-03-07 09:13 | MHC.OFFVIS ---
Vital Signs 03/07/25 09:14 Height 5 ft 4 in Weight 228 lb 6.382 oz BMI 39.2 BP 120/80 Blood Pressure Location Rt brachial Position Sitting Pulse 77 Pulse Source Pulse Oximeter Pulse Oximetry (%) 95 Oxygen Delivery Method Room Air Intake Visit Reasons: 4 months Intake Note: Patient presents for SLE follow up. Accompanied by: Self / Same As Patient Allergies codeine Allergy (Unknown, Verified 03/07/25 09:18) Swelling, rash HPI HPI 4 months: Details: She did not got to OT due to schedule limitation with work. She works a lot and has 2 days off of month on the weekend. Elbow feels better. SHe feels well. [facility] Medical History Diverticulosis Helicobacter pylori (H. pylori) Migraine Fibromyalgia SLE (systemic lupus erythematosus) Vitamin D deficiency Obesity (BMI 30-39.9) Allergic rhinitis GERD (gastroesophageal reflux disease) Acquired hypothyroidism Sjogren syndrome with other organ involvement Long-term use of high-risk medication Positive JESUS (antinuclear antibody) Surgical History Hx of colonoscopy (~2019) Hx of cholecystectomy Hx of dilation and curettage Hx of tubal ligation History of left oophorectomy Hx of hysterectomy History of breast biopsy Family History Mother Cervical cancer HTN (hypertension) Diabetes Social History Housing: Apartment Alcohol intake: never Patient Tobacco Use Status: Never used Tobacco e-Cigarette/Vaping Use: Never Used Second Hand Smoke Exposure: No service: No Current occupational status: unemployed 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 Good respiratory effort Skin: No lesions seen MSK: No synovitis. Shoulder abduction 170 degrees bilateral with full internal rotation and external rotation. R hip external rotation limited. Knee flexion bilateral 90 degrees limited due to pain. No ankle tenderness. Assessment & Plan Assessment & Plan (1) SLE (systemic lupus erythematosus related syndrome): Comment: Controlled on hydroxychloroquine. Serologically active with mild positive double-stranded DNA 07/2024. Rheumatology history: Onset 2016: + SSA, SSB, positive double-stranded DNA. Presenting with inflammatory arthritis, facial rash, sicca symptoms. Hydroxychloroquine probably started in 2018, reduced to 300 mg daily 09/2023. She has secondary Sjogren syndrome. Hx of hepatic steatosis Code(s): M32.9 - Systemic lupus erythematosus, unspecified Category: Medical Plan: Labs to assess disease and drug monitoring ordered Continue hydroxychloroquine 300 mg daily. Last eye exam 01/2024 OCT. VF scheduled in Apr. Return to clinic in 3 months (2) Sjogren syndrome with inflammatory arthritis: Comment: Sicca symptoms are better controlled. She is on Xiidra for dry eyes and uses Biotene losenges. In the past pilocarpine t.i.d. caused excessive saliva production at night. When frequency was reduced to b.i.d. dry mouth worsened. Code(s): M35.05 - Sjogren syndrome with inflammatory arthritis Category: Medical Plan: F/u Ophthalmology for management of dry eyes Continue Biotene products OTC such as lozenges. She will try biotene toothpaste and xylimelts Return to clinic in 3 months (3) Paresthesia of hand, bilateral: Comment: Improved with wearing bilateral wrist braces at night and during the day. Concern for carpal tunnel syndrome. EMG 09/27/2024 unremarkable. Code(s): R20.2 - Paresthesia of skin Category: Medical Plan: Wear bilateral cock-up wrist braces at night Return to clinic in 3 months (4) Left lateral epicondylitis: Comment: Resolved with cortisone injection. Failed PT and elbow support band. Code(s): M77.12 - Lateral epicondylitis, left elbow Category: Medical Plan: RTC PRN Orders: Orders Complete Blood Count Auto Diff Today M32.9 - Systemic lupus erythematosus, unspecified Alanine Aminotransferase Today M32.9 - Systemic lupus erythematosus, unspecified Aspartate Amino Transferase Today M32.9 - Systemic lupus erythematosus, unspecified C Reactive Protein Today M32.9 - Systemic lupus erythematosus, unspecified Protein Electrophoresis, Serum Today M35.00 - Sjogren syndrome, unspecified Erythrocyte Sedimentation Rate Today M32.9 - Systemic lupus erythematosus, unspecified Protein Creatinine Ratio, Ur Today M32.9 - Systemic lupus erythematosus, unspecified Complement C3 Today M32.9 - Systemic lupus erythematosus, unspecified Complement C4 Today M32.9 - Systemic lupus erythematosus, unspecified Creatinine Today M32.9 - Systemic lupus erythematosus, unspecified Anti DNA DS Antibody Today M32.9 - Systemic lupus erythematosus, unspecified UA ClnCatch+Micro w/rflx Cult Today M32.9 - Systemic lupus erythematosus, unspecified Coding Level of Care Code Est Pt Level 4 (70058) Complex visit Add On G2211 Diagnoses SLE (systemic lupus erythematosus related syndrome) M32.9 Sjogren syndrome with inflammatory arthritis M35.05 Paresthesia of hand, bilateral R20.2 Left lateral epicondylitis M77.12
[2025-03-07 09:14] VITALS: BP 120/80; PULSE 77; O2SAT 95; BMI 39.2
== END 2025-03-07 09:59 | disposition home or self-care (01) ==
LOC: HO.RHES 09:08
PROVIDERS: PCP Internal Medicine; Visit Provider Internal Medicine Rheumatology
DX: M32.9 Systemic lupus erythematosus, unspecified (principal); M35.05 Sjogren syndrome with inflammatory arthritis; R20.2 Paresthesia of skin; M77.12 Lateral epicondylitis, left elbow
CPT/HCPCS: 99214; G2211

== ENCOUNTER → 2025-03-07 09:07 | Outpatient (BNVA) | payer MEDICARE, SELFPAY | PROVIDERS: PCP Internal Medicine; Visit Provider Internal Medicine Rheumatology | DX: Z51.81 Encounter for therapeutic drug level monitoring (principal); M32.9 Systemic lupus erythematosus, unspecified; M35.05 Sjogren syndrome with inflammatory arthritis; R20.2 Paresthesia of skin; Z79.899 Other long term (current) drug therapy | CPT/HCPCS: 99212 ==

== ENCOUNTER 2025-03-08 08:14 | Outpatient (AMB) | payer BC, SELFPAY ==
--- NOTE | 2025-03-08 08:20 | A.OFFVIS_ITS ---
Vital Signs 03/08/25 08:28 Height 5 ft 4 in Weight 228 lb BMI 39.1 BP 124/74 Blood Pressure Location Rt brachial Position Sitting Pulse 68 Pulse Source Pulse Oximeter Pulse Oximetry (%) 94 Oxygen Delivery Method Room Air Intake Visit Reasons: 3 mo f/u Intake Note: Est pt for mgmt of GERD, H-pylori hx. CC; Pt denies any GI sx or concerns at this time. Confirms she is still taking her Rx'd medications w/o complication. 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 Avoid dietary triggers and late night snacking. Staying upright for minimum 3 hours after meals discussed with patient. Patient will hold PPI for 2 weeks and restart after H pylori breath test. May take famotidine as needed in the meantime. Patient will follow-up in 2-3 months, sooner on as needed basis. She is agreeable to this plan and verbalizes understanding of instructions. She was given the opportunity to ask questions and all questions answered. ? Thank you for allowing me to participate in her care Orders H Pylori Breath Test Today K21.9 Changed Changed From omeprazole 20 mg PO BID 90 days 180 caps 1RF Changed To omeprazole 20 mg PO DAILY 90 caps 1RF 90 days TODAY'S VISIT Patient is here today for follow-up. Patient reports that she has been feeling well. Taking omeprazole in the morning and famotidine at bedtime. Her symptoms of acid reflux have been suppressed. Patient denies dyspepsia, dysphagia or odynophagia. During the last visit patient tested positive for H pylori and was placed on quadruple therapy and finish all of her treatment. Patient reports that she is feeling well. Denies any GI concerning symptoms. Moving her bowels well. Denies melena, hematochezia, unintentional weight loss or ribbon like stools. [facility] Medical History Diverticulosis Helicobacter pylori (H. pylori) Migraine Fibromyalgia SLE (systemic lupus erythematosus) Vitamin D deficiency Obesity (BMI 30-39.9) Allergic rhinitis GERD (gastroesophageal reflux disease) Acquired hypothyroidism Sjogren syndrome with other organ involvement Long-term use of high-risk medication Positive JESUS (antinuclear antibody) Surgical History Hx of colonoscopy (~2019) Hx of cholecystectomy Hx of dilation and curettage Hx of tubal ligation History of left oophorectomy Hx of hysterectomy History of breast biopsy Family History Mother Cervical cancer HTN (hypertension) Diabetes Social History Housing: Apartment Alcohol intake: never Patient Tobacco Use Status: Never used Tobacco e-Cigarette/Vaping Use: Never Used Second Hand Smoke Exposure: No service: No Current occupational status: unemployed 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 pylori): Code(s): A04.8 - Other specified bacterial intestinal infections Category: Medical (2) GERD (gastroesophageal reflux disease): Code(s): K21.9 - Gastro-esophageal reflux disease without esophagitis Category: Medical Qualifiers: Esophagitis presence: without esophagitis Qualified Code(s): K21.9 - Gastro-esophageal reflux disease without esophagitis (3) Constipation: Code(s): K59.00 - Constipation, unspecified Category: Medical Qualifiers: Constipation type: unspecified constipation type Qualified Code(s): K59.00 - Constipation, unspecified (4) Diverticulosis: Code(s): K57.90 - Diverticulosis of intestine, part unspecified, without perforation or abscess without bleeding Category: Medical Plan Patient took all of her antibiotics. Patient will be retested. She will come back in 2 weeks. Patient will hold omeprazole and will take famotidine. Hold famotidine 24-48 hours before testing. Will treat empirically if positive. However patient feels much better. She can continue omeprazole after that. Continue avoiding dietary triggers and late night snacking. Staying upright for minimum 3 meals discussed with patient. Patient will return in 6 months. She will call us if she will have any GI concerning symptoms. Patient is agreeable to this plan and verbalizes understanding of instructions. She was given the opportunity to ask questions and all questions answered. Thank you for allowing me to participate in her care Medications: New famotidine (Pepcid) 20 mg PO BID 30 tabs 0RF K29.70 - Gastritis, unspecified, without bleeding Refilled omeprazole 20 mg PO DAILY 90 caps 1RF 90 days Coding Level of Care Code Est Pt Level 3 (21722) Diagnoses Helicobacter pylori (H. pylori) A04.8 Gastroesophageal reflux disease without esophagitis K21.9 Esophagitis presence: without esophagitis Constipation, unspecified constipation type K59.00 Constipation type: unspecified constipation type Diverticulosis K57.90 Time Spent (min) 25 Comment 15 minutes spent with patient and additional 10 minutes spent reviewing her records
[2025-03-08 08:28] VITALS: BP 124/74; PULSE 68; O2SAT 94; BMI 39.1
== END 2025-03-08 08:46 | disposition home or self-care (01) ==
LOC: HO.HGI 08:15
PROVIDERS: PCP Internal Medicine; Visit Provider Nurse Practitioner Family
DX: A04.8 Other specified bacterial intestinal infections (principal); K21.9 Gastro-esophageal reflux disease without esophagitis; K59.00 Constipation, unspecified; K57.90 Diverticulosis of intestine, part unspecified, without perforation or abscess without bleeding
CPT/HCPCS: 99213